=== PATIENT | male | born 1960 | race Caucasian/White ===

== ENCOUNTER 2021-12-01 15:53 | Outpatient (CLI) | payer BC, SELFPAY ==
[2021-12-01 16:22] LABS: Hematocrit 33.9 % (40.0-54.0); Hemoglobin 10.5 g/dL (14.0-18.0); Mean Corpuscular Hemoglobin 24.9 pg (27.0-31.0); Mean Corpuscular Volume 80.3 fL (78.0-102.0); Platelet Count Result 50 K/mm3 (150-420); Red Blood Count 4.22 M/mm3 (4.70-6.10); White Blood Count 2.3 K/mm3 (4.8-10.8)
[2021-12-01 16:29] LABS: Hemoglobin A1C 7.6 % (<5.7)
[2021-12-01 16:36] LABS: Creatinine Urine 67.27 mg/dL (40-278); MALB Creatinine Ratio 19.3 mg/g (0-30); Microalbumin Urine Random < 13.0 mg/L
[2021-12-01 17:15] LABS: Alanine Aminotransferase 36 U/L (16-63); Albumin Level 3.9 g/dL (3.4-5.0); Alkaline Phosphatase 80 U/L (46-116); Anion Gap 9 mmol/L (8-16); Aspartate Amino Transferase 24 U/L (15-37); Bilirubin,Total 0.5 mg/dL (0.00-1.00); Blood Urea Nitrogen 11 mg/dL (7-18); Calcium 8.7 mg/dL (8.5-10.1); Carbon Dioxide 29 mmol/L (21-32); Chloride 105 mmol/L (98-108); Cholesterol 149 mg/dL (0-200); Estimated Glomerular Filt Rate > 60; Ferritin 10 ng/mL (26-388); Glucose 124 mg/dL (70-99); HDL Direct 47 mg/dL (40-60); Iron 22 ug/dL (65-175); LDL Cholesterol Calculated 91 mg/dL (<130); Osmolality Calculated 296 mOsm/kg (285-295); Percent Iron Saturation 5 % (12-57); Sodium 143 mmol/L (136-145); Total Protein 6.8 g/dL (6.4-8.2); Triglycerides 55 mg/dL (0-150)
== END 2021-12-01 15:54 | disposition home or self-care (01) ==
LOC: CHSLAB 15:56
PROVIDERS: PCP Family Medicine; Visit Provider Family Medicine
DX: D64.9 Anemia, unspecified (principal); E11.9 Type 2 diabetes mellitus without complications
CPT/HCPCS: 36415; 80053; 80061; 82043; 82728; 83036; 83540; 83550; 85027; 85055

== ENCOUNTER 2021-12-03 08:41 | Outpatient (CLI) | payer BC, SELFPAY ==
--- NOTE | ~2021-12-03 | US_ITS ---
EXAMINATION: US abdomen limited DATE: 12/03/2021 09:44 INDICATION: Splenomegaly TECHNIQUE: Multiple grayscale and Doppler ultrasound images of the abdomen were obtained. COMPARISON: None FINDINGS: Splenomegaly measuring approximately 21 x 21 x 11 cm. The region of the pancreas is obscured. Liver h as normal contour, with a smooth surface. There is increased parenchymal echogenicity and coarsened e chotexture consistent with diffuse hepatic steatosis. No liver lesion identified. No intrahepatic bi liary duct dilation suspected. Portal venous flow was seen in the hepatopetal, normal direction and h as normal Doppler waveform. There is mild gallbladder wall thickening measuring 3-4 mm . There is no cholelithiasis. The common bile duct measures 3-4 mm, which is normal. Sonographic Abbasi sign was re ported as negative by the foil wrapper.Visualized portions of the right kidney demonstrates normal con tour and echogenicity with no hydronephrosis. IMPRESSION: 1. Diffuse hepatic steatosis. 2. Nonspecific splenomegaly measuring 21 x 21 x 11 cm. 3. No significant gallbladder wall thickening without evident cholelithiasis or Abbasi sign to sugges t acute cholecystitis. Differential would include liver heart or renal disease or other generalized e laayna forming states. Reviewed, dictated and finalized at location A. IMPRESSION: 1. Diffuse hepatic steatosis. 2. Nonspecific splenomegaly measuring 21 x 21 x 11 cm. 3. No significant gallbladder wall thickening without evident cholelithiasis or Abbasi sign to suggest acute cholecystitis. Differential would include liver h eart or renal disease or other generalized edema forming states.
== END 2021-12-03 08:42 | disposition home or self-care (01) ==
LOC: CHSIMG 08:42
PROVIDERS: PCP Family Medicine; Visit Provider Family Medicine
DX: R16.1 Splenomegaly, not elsewhere classified (principal)
CPT/HCPCS: 76705

== ENCOUNTER 2022-01-07 09:10 | Outpatient (CLI) | payer BC, SELFPAY ==
[2022-01-07 10:25] LABS: Lactate Dehydrogenase 166 U/L (85-227)
[2022-01-07 11:24] LABS: HIV 1 P24 AG Negative (Negative); HIV 1/2 AB Negative (Negative)
[2022-01-10 04:02] LABS: Angiotensin Converting Enzyme 39 U/L (9-67)
[2022-01-10 14:07] LABS: Hepatitis B Surface Antigen Nonreactive (Nonreactive); Hepatitis C Signal to Cutoff 0.01 ratio (<1.00); Hepatitis C Virus Antibody Nonreactive (Nonreactive)
[2022-01-10 14:07] LABS: Hepatitis A Antibody IgM Nonreactive; Hepatitis B Core Ab Total Nonreactive (Nonreactive)
[2022-01-12 11:03] LABS: BCR/abl Prior Result Not Given
[2022-01-12 11:49] LABS: BCR/abl P190 Not Detected; BCR/abl P190 Chg YES; BCR/abl P210 Not Detected; BCR/abl P210 Chg YES
== END 2022-01-07 09:11 | disposition home or self-care (01) ==
LOC: CHSLAB 09:13
PROVIDERS: PCP Family Medicine; Visit Provider Internal Medicine Hematology & Oncology
DX: R16.1 Splenomegaly, not elsewhere classified (principal)
CPT/HCPCS: 36415; 81206; 81207; 82164; 83615; 86703; 86704; 88184; 88185; 88189

== ENCOUNTER 2022-01-16 00:45 | Day surgery (SDC) | payer BC, SELFPAY ==
[2022-01-01 13:32] VITALS: BMI 33.2
--- NOTE | 2022-01-15 10:47 | WPDANESEPPF ---
Anes - Initial Pre Proc Eval Procedure: Operation Date: 01/16/22 11:15 Proposed Procedures p Esophagogastroduodenoscopy & Screening Colonoscopy - Blayne Beltrán MD Date/Time: 01/15/22 10:47 Surgeon: Blayne Beltrán MD Pre Op Diagnosis: GERD, neoplasm screening Patient Data Age: 61 Gender: M Height: 1.83 m Weight: 111 kg Allergies Allergy/AdvReac Type Severity Reaction Status Date / Time Penicillins Allergy Severe swelling Verified 01/16/22 09:36 Home Medications Medication Instructions Recorded Confirmed Type bupropion HCl 150 mg 24 hr tablet, 300 mg PO QAM 12/01/21 01/14/22 History extended release cetirizine 10 mg tablet (Zyrtec) 10 mg PO DAILY PRN rhinitis 12/01/21 01/14/22 History glimepiride 2 mg tablet 2 mg PO BID 12/01/21 01/14/22 History losartan 50 mg-hydrochlorothiazide 1 tablet PO DAILY 12/01/21 01/14/22 History 12.5 mg tablet pantoprazole 40 mg tablet,delayed 40 mg PO QHS 12/01/21 01/14/22 History release sertraline 100 mg tablet 100 mg PO HS 12/01/21 01/14/22 History sildenafil 25 mg tablet 25 mg PO DAILY PRN Sexual Activity 12/01/21 01/14/22 History acetaminophen 500 mg tablet 1,000 mg PO BID PRN Pain 12/15/21 01/14/22 History hydrochlorothiazide 12.5 mg tablet 12.5 mg PO DAILY 12/15/21 01/14/22 History ferrous sulfate 325 mg PO DAILY 01/01/22 01/14/22 History Patient hx anesthesia problems: none Family hx anesthesia problems: none Results Review: All pre-operative results and documents have been reviewed as part of the pre-operative evaluation. [facility] Past Medical History Medical History (Updated 01/15/22 @ 10:48 by Tyler Griffiths DO) Anxiety Depression GERD (gastroesophageal reflux disease) Hypertension Hypothyroidism Type 2 diabetes mellitus Social History Social History Smoking status: Never smoker Alcohol intake: never Substance use: never Substance use type: does not use Living arrangements: alone Spiritual care concerns: No Anes - Eval Final PreProcedure Day of Procedure 01/15/22 10:47 Patient weight: obese Heart: regular rate and rhythm Lungs: clear to auscultation Airway: Mallampati scale class II Neurological: alert and oriented Last oral intake: >/= 8 hours ASA classification: III Emergent: no Anesthetic plan: proceed Anesthesia type and monitoring: general GIVS and standard monitoring Results Review: All pre-operative results and documents have been reviewed as part of the pre-operative evaluation. Informed Consent: The patient's anesthetic plan and its attendant risks and benefits were discussed with the patient/family/POA. Questions were solicited and answers provided to the satisfaction of the patient/family/POA.
[2022-01-16 09:42] VITALS: BP 155/83; PULSE 71; RESP 20; TEMP 36.4; O2SAT 98; BMI 32.8
[2022-01-16] MEDS: LACTATED RINGERS 1,000 ML 150 ML IV CONT (09:54)
[2022-01-16 09:57] LABS: Glucose Point of Care 144 mg/dl (65-105)
--- NOTE | 2022-01-16 10:45 | PM.HPGS ---
History of Present Illness History of Present Illness Consent: Risks, benefits, and alternatives have been discussed and questions answered. Patient agrees to proceed with procedure. Chief complaint: GERD, neoplasm screening Narrative: Ez Burgos is a 61 year old male with pancytopenia and LINDSEY, he is seeing hematology. Denies overt gib, never had egd and has GERD on protonix. Colonoscopy 12 years ago. Review of Systems Constitutional: Constitutional: Denies headache(s) and Denies weakness Eyes: Eyes: Denies blurry vision ENT: Reports Normal hearing present, Denies headache(s) and Denies neck pain Cardiovascular: Cardiovascular: Denies chest pain and Denies dyspnea Respiratory: Respiratory: Denies dyspnea Gastrointestinal: Gastrointestinal: Reports no additional gastrointestinal complaints Genitourinary: Genitourinary: Denies dysuria Musculoskeletal: Musculoskeletal: Denies neck pain Integumentary/Breasts: Skin/Breast: Denies dry skin Neurologic: Reports Normal hearing present, Denies headache(s) and Denies weakness Psychiatric: Psychiatric: Denies anxiety Endocrine: Endocrine: Denies change in body appearance Hematologic/Lymphatic: Hematologic/Lymphatic: Denies easy bleeding Allergic/Immunologic: Allergic/Immunologic: Denies urticaria PMFSH Past Medical History Medical History (Updated 01/16/22 @ 10:46 by Blayne Beltrán MD) Anxiety Depression GERD (gastroesophageal reflux disease) Hypertension Hypothyroidism Iron deficiency anemia Pancytopenia Type 2 diabetes mellitus Social History Social History Smoking status: Never smoker Alcohol intake: never Substance use: never Substance use type: does not use Living arrangements: alone Spiritual care concerns: No Meds Home Medications and Allergies Home Medications Medication Instructions Recorded Confirmed Type bupropion HCl 150 mg 24 hr tablet, 300 mg PO QAM 12/01/21 01/14/22 History extended release cetirizine 10 mg tablet (Zyrtec) 10 mg PO DAILY PRN rhinitis 12/01/21 01/14/22 History glimepiride 2 mg tablet 2 mg PO BID 12/01/21 01/14/22 History losartan 50 mg-hydrochlorothiazide 1 tablet PO DAILY 12/01/21 01/14/22 History 12.5 mg tablet pantoprazole 40 mg tablet,delayed 40 mg PO QHS 12/01/21 01/14/22 History release sertraline 100 mg tablet 100 mg PO HS 12/01/21 01/14/22 History sildenafil 25 mg tablet 25 mg PO DAILY PRN Sexual Activity 12/01/21 01/14/22 History acetaminophen 500 mg tablet 1,000 mg PO BID PRN Pain 12/15/21 01/14/22 History hydrochlorothiazide 12.5 mg tablet 12.5 mg PO DAILY 12/15/21 01/14/22 History ferrous sulfate 325 mg PO DAILY 01/01/22 01/14/22 History Allergies Allergy/AdvReac Type Severity Reaction Status Date / Time Penicillins Allergy Severe swelling Verified 01/16/22 09:36 Vital Signs Vital Signs - 24 hr 01/16/22 09:42 Temperature 97.5 F L Pulse Rate 71 Respiratory Rate 20 Blood Pressure 155/83 H Pulse Oximetry 98 Oxygen Delivery Room Air Exam Const: General: comfortable and no acute distress HENMT: General nose exam: Normal nares present Eyes: General: appearance normal, both eyes and all related structures Neck: Neck: no JVD Resp: Auscultation: clear to auscultation bilaterally Cardio: Rate: regular rate Rhythm: regular rhythm GI: Inspection: non-distended GI Palp: Yes Soft to palpation Skin: General skin exam: normal color Neuro: General: gait normal Speech: normal speech Extrem: General: normal to inspection Psych: Mental Status: mental status grossly normal Assessment and Plan Assessment and plan (1) Iron deficiency anemia: Code(s): D50.9 - Iron deficiency anemia, unspecified Status: Acute Assessment and Plan: egd and colonoscopy to assess if any gi loss (2) Pancytopenia: Code(s): D61.818 - Other pancytopenia Status: Acute Asses
[2022-01-16 11:30] VITALS: BP 166/86; PULSE 70; RESP 17; O2SAT 99
--- NOTE | 2022-01-16 11:32 | SUR.OPER ---
EGD START 1050, END 1058 COLONOSCOPY START 1104, END 1123
[2022-01-16 11:40] VITALS: BP 177/95; PULSE 63; RESP 17; O2SAT 100
[2022-01-16 11:50] VITALS: BP 179/93; PULSE 62; RESP 19; O2SAT 100
== END 2022-01-16 12:30 | disposition home or self-care (01) ==
PROVIDERS: PCP Family Medicine; Visit Provider Internal Medicine Gastroenterology
PROC: 0DJ08ZZ Inspection of Upper Intestinal Tract, Via Natural or Artificial Opening Endoscopic (ICD-10-PCS; CPT 43235; principal; 2022-01-16 11:15)
DX: Z12.11 Encounter for screening for malignant neoplasm of colon (principal); D12.2 Benign neoplasm of ascending colon; D12.4 Benign neoplasm of descending colon; K64.8 Other hemorrhoids; K63.5 Polyp of colon; I85.00 Esophageal varices without bleeding; K29.70 Gastritis, unspecified, without bleeding; F41.9 Anxiety disorder, unspecified; F32.A Depression, unspecified; I10 Essential (primary) hypertension; K21.9 Gastro-esophageal reflux disease without esophagitis; E03.9 Hypothyroidism, unspecified; D50.9 Iron deficiency anemia, unspecified; D61.818 Other pancytopenia; E11.9 Type 2 diabetes mellitus without complications; E66.9 Obesity, unspecified; Z68.32 Body mass index [BMI] 32.0-32.9, adult
CPT/HCPCS: 45385; 43244; 82948; 88305; J2001; J2704; J7120

== ENCOUNTER 2022-01-20 15:20 | Outpatient (CLI) | payer BC, SELFPAY ==
[2022-01-22 21:16] LABS: Ceruloplasmin 25 mg/dL (18-36); Immunoglobulin G 878 mg/dL (600-1640); Immunoglobulin M 147 mg/dL (50-300)
[2022-01-22 21:59] LABS: Mitochondrial (M2) Ab (IgG) <=20.0 U (<=20.0)
[2022-01-26 11:32] LABS: Anti Nuclear Antibody Pattern Nuclear, Speckled
[2022-01-28 15:21] LABS: ALT 24 U/L (9-46); Alpha-2-Macroglobulin 255 mg/dL (106-279); Apolipoprotein A1 116 mg/dL (94-176); Fibrosis Score 0.63; Fibrosis Stage F3; GGT 38 U/L (3-70); Haptoglobin 50 mg/dL (43-212); Necroinflammat Act Grade A0; Total Bilirubin 0.5 mg/dL (0.2-1.2)
== END 2022-01-20 15:21 | disposition home or self-care (01) ==
PROVIDERS: PCP Family Medicine; Visit Provider Internal Medicine Gastroenterology
DX: R74.8 Abnormal levels of other serum enzymes (principal); D61.818 Other pancytopenia; K74.60 Unspecified cirrhosis of liver
CPT/HCPCS: 36415; 81596; 82104; 82390; 82784; 83520; 86038; 86039

== ENCOUNTER 2022-02-24 00:24 | Day surgery (SDC) | payer BC, SELFPAY ==
[2022-02-09 15:09] VITALS: BMI 32.5
[2022-02-24 08:01] VITALS: BP 173/79; PULSE 65; RESP 20; TEMP 36.5; O2SAT 97
[2022-02-24] MEDS: LACTATED RINGERS 1,000 ML 150 ML IV CONT (08:15)
--- NOTE | 2022-02-24 08:22 | P.PNAN_ITS ---
Anes - Initial Pre Proc Eval Procedure: Operation Date: 02/24/22 09:45 Proposed Procedures p Esophagogastroduodenoscopy - Blayne Beltrán MD Date/Time: 02/24/22 08:22 Surgeon: Blayne Beltrán MD Pre Op Diagnosis: esophageal varices, esophagitis Patient Data Age: 61 Gender: M Height: 1.83 m Weight: 112.5 kg Last Vital Signs Temp 36.5 C 02/24/22 08:01 Pulse 65 02/24/22 08:01 Resp 20 02/24/22 08:01 BP 173/79 H 02/24/22 08:01 Pulse Ox 97 02/24/22 08:01 O2 Del Method Room Air 02/24/22 08:01 Allergies Allergy/AdvReac Type Severity Reaction Status Date / Time Penicillins Allergy Severe swelling Verified 02/24/22 08:00 Home Medications Medication Instructions Recorded Confirmed Type bupropion HCl 150 mg 24 hr tablet, 300 mg PO QAM 12/01/21 02/09/22 History extended release cetirizine 10 mg tablet (Zyrtec) 10 mg PO DAILY PRN rhinitis 12/01/21 02/09/22 History glimepiride 2 mg tablet 2 mg PO BID 12/01/21 02/09/22 History losartan 50 mg-hydrochlorothiazide 1 tablet PO DAILY 12/01/21 02/09/22 History 12.5 mg tablet pantoprazole 40 mg tablet,delayed 40 mg PO QHS 12/01/21 02/09/22 History release sildenafil 25 mg tablet 25 mg PO DAILY PRN Sexual Activity 12/01/21 02/09/22 History acetaminophen 500 mg tablet 1,000 mg PO BID PRN Pain 12/15/21 02/09/22 History hydrochlorothiazide 12.5 mg tablet 12.5 mg PO DAILY 12/15/21 02/09/22 History ferrous sulfate 325 mg PO DAILY 01/01/22 02/09/22 History sertraline 100 mg tablet 200 mg PO DAILY 90 days #180 tabs 01/20/22 02/09/22 Rx Patient hx anesthesia problems: none Family hx anesthesia problems: none Results Review: All pre-operative results and documents have been reviewed as part of the pre-op erative evaluation. [facility] Past Medical History Medical History Anxiety Cirrhosis Depression GERD (gastroesophageal reflux disease) Hypertension Hypothyroidism Iron deficiency anemia Pancytopenia Type 2 diabetes mellitus Social History Social History Smoking status: Never smoker Alcohol intake: never Substance use: never Substance use type: does not use Living arrangements: alone Spiritual care concerns: No Anes - Eval Final PreProcedure Day of Procedure 02/24/22 08:22 Patient weight: obese Heart: regular rate and rhythm Lungs: clear to auscultation Airway: Mallampati scale class II Neurological: alert and oriented Last oral intake: >/= 8 hours ASA classification: III Emergent: no Anesthetic plan: proceed Anesthesia type and monitoring: general GIVS and standard monitoring Results Review: All pre-operative results and documents have been reviewed as part of the pre- operative evaluation. Informed Consent: The patient's anesthetic plan and its attendant risks and benefits were discussed with the patient/family/POA. Questions were solicited and answers provided to the satisfaction of the patient/family/POA.
[2022-02-24 08:27] LABS: Glucose Point of Care 164 mg/dl (65-105)
--- NOTE | 2022-02-24 09:10 | PM.HPGS ---
History of Present Illness History of Present Illness Consent: Risks, benefits, and alternatives have been discussed and questions answered. Patient agrees to proceed with procedure. Chief complaint: esophageal varices, esophagitis Narrative: Ez Burgos is a 61 year old male with new diagnosis of cirrhosis and recent EGD showed large EV that required banding, denies any bleeding. No h/o alcohol use. Review of Systems Constitutional: Constitutional: Denies headache(s) and Denies weakness Eyes: Eyes: Denies blurry vision ENT: Reports Normal hearing present, Denies headache(s) and Denies neck pain Cardiovascular: Cardiovascular: Denies chest pain and Denies dyspnea Respiratory: Respiratory: Denies dyspnea Gastrointestinal: Gastrointestinal: Reports no additional gastrointestinal complaints Genitourinary: Genitourinary: Denies dysuria Musculoskeletal: Musculoskeletal: Denies neck pain Integumentary/Breasts: Skin/Breast: Denies dry skin Neurologic: Reports Normal hearing present, Denies headache(s) and Denies weakness Psychiatric: Psychiatric: Denies anxiety Endocrine: Endocrine: Denies change in body appearance Hematologic/Lymphatic: Hematologic/Lymphatic: Denies easy bleeding Allergic/Immunologic: Allergic/Immunologic: Denies urticaria PMFSH Past Medical History Medical History (Updated 02/24/22 @ 09:11 by Blayne Beltrán MD) Anxiety Cirrhosis Depression Esophageal varices determined by endoscopy GERD (gastroesophageal reflux disease) Hypertension Hypothyroidism Iron deficiency anemia Pancytopenia Type 2 diabetes mellitus Social History Social History Smoking status: Never smoker Alcohol intake: never Substance use: never Substance use type: does not use Living arrangements: alone Spiritual care concerns: No Meds Home Medications and Allergies Home Medications Medication Instructions Recorded Confirmed Type bupropion HCl 150 mg 24 hr tablet, 300 mg PO QAM 12/01/21 02/09/22 History extended release cetirizine 10 mg tablet (Zyrtec) 10 mg PO DAILY PRN rhinitis 12/01/21 02/09/22 History glimepiride 2 mg tablet 2 mg PO BID 12/01/21 02/09/22 History losartan 50 mg-hydrochlorothiazide 1 tablet PO DAILY 12/01/21 02/09/22 History 12.5 mg tablet pantoprazole 40 mg tablet,delayed 40 mg PO QHS 12/01/21 02/09/22 History release sildenafil 25 mg tablet 25 mg PO DAILY PRN Sexual Activity 12/01/21 02/09/22 History acetaminophen 500 mg tablet 1,000 mg PO BID PRN Pain 12/15/21 02/09/22 History hydrochlorothiazide 12.5 mg tablet 12.5 mg PO DAILY 12/15/21 02/09/22 History ferrous sulfate 325 mg PO DAILY 01/01/22 02/09/22 History sertraline 100 mg tablet 200 mg PO DAILY 90 days #180 tabs 01/20/22 02/09/22 Rx Allergies Allergy/AdvReac Type Severity Reaction Status Date / Time Penicillins Allergy Severe swelling Verified 02/24/22 08:00 Vital Signs Vital Signs - 24 hr 02/24/22 08:01 Temperature 97.7 F Pulse Rate 65 Respiratory Rate 20 Blood Pressure 173/79 H Pulse Oximetry 97 Oxygen Delivery Room Air Exam Const: General: comfortable and no acute distress HENMT: Face/Nose/Sinus: Normal nares present Eyes: General: appearance normal, both eyes and all related structures Neck: Neck: no JVD Resp: Auscultation: clear to auscultation bilaterally Cardio: Rate: regular rate Rhythm: regular rhythm GI: Inspection: non-distended GI Palp: Yes Soft to palpation Skin: General skin exam: normal color Neuro: General: gait normal Speech: normal speech Extrem: General: normal to inspection Psych: Mental Status: mental status grossly normal Assessment and Plan Assessment and plan (1) Cirrhosis: Code(s): K74.60 - Unspecified cirrhosis of liver Status: Acute Assessment and Plan: patient will follow up office soon probably rivas related (2) Esophageal varices determined b
[2022-02-24 09:22] VITALS: BP 203/115; PULSE 68; RESP 20; O2SAT 100
[2022-02-24 09:32] VITALS: BP 197/110; PULSE 67; RESP 20; O2SAT 100
[2022-02-24 09:42] VITALS: BP 194/104; PULSE 70; RESP 20; O2SAT 100
[2022-02-24 09:52] VITALS: BP 156/94; PULSE 70; RESP 20; O2SAT 100
--- NOTE | 2022-02-24 09:57 | SUR.PHASEII ---
0922: PT INTO POST OP, BLOOD PRESSURE 203/115, HR 68. LIGIA HINTON ADMINISTERED 20MG HYDRALAZINE IVP. PT DROWSY BUT AWAKE. 0958: BLOOD PRESSURE 156/94, HR 70. DR SHEFFIELD UPDATED. NO NEW ORDERS. PT AWAKE AND TALKING.
== END 2022-02-24 10:16 | disposition home or self-care (01) ==
PROVIDERS: PCP Family Medicine; Visit Provider Internal Medicine Gastroenterology
PROC: 0DJ08ZZ Inspection of Upper Intestinal Tract, Via Natural or Artificial Opening Endoscopic (ICD-10-PCS; CPT 43235; principal; 2022-02-24 09:45)
DX: K74.60 Unspecified cirrhosis of liver (principal); I85.10 Secondary esophageal varices without bleeding; K29.70 Gastritis, unspecified, without bleeding; K21.9 Gastro-esophageal reflux disease without esophagitis; I10 Essential (primary) hypertension; E03.9 Hypothyroidism, unspecified; D50.9 Iron deficiency anemia, unspecified; E11.9 Type 2 diabetes mellitus without complications; F41.9 Anxiety disorder, unspecified; F32.A Depression, unspecified; Z79.84 Long term (current) use of oral hypoglycemic drugs; E66.9 Obesity, unspecified; Z68.33 Body mass index [BMI] 33.0-33.9, adult
CPT/HCPCS: 43244; 82948; J0360; J2704; J7120

== ENCOUNTER 2022-03-27 13:11 | Emergency (ER) | payer BC, OTHER, SELFPAY ==
--- NOTE | ~2022-03-27 | XR_ITS ---
EXAMINATION: XR chest 2V DATE: 03/27/2022 14:28 INDICATION: Anterior right lower chest pain. TECHNIQUE: frontal and lateral views of the chest were obtained. COMPARISON: None FINDINGS: Calcified nodule at the right lung base consistent with old granulomatous disease. Mild lingular disc oid atelectasis near the apex of the heart. No other airspace opacities, pulmonary edema, pleural eff usion or pneumothorax. The cardiomediastinal silhouette is normal. Mild to moderate thoracolumbar spo ndylosis IMPRESSION: 1. Mild lingular atelectasis. No other acute cardiopulmonary disease. Reviewed, dictated and finalized at location A. HOMETRICIAN
[2022-03-27 13:31] VITALS: BP 147/78; PULSE 79; RESP 20; TEMP 36.9; O2SAT 96
--- NOTE | 2022-03-27 14:19 | ED.GENADULT ---
HPI - General Adult General Chief complaint: Abdominal Pain Stated complaint: vomiting/R side pain Time Seen by Provider: 03/27/22 14:06 History of Present Illness HPI narrative: patient is a 61-year-old white male with history of cirrhosis complains of right upper quadrant and and right lower chest wall pain that started this morning associated with vomiting up food without blood. He also has a history of esophageal varices low platelets low RBCs splenomegaly iron deficiency anemia. He has had some watery loose diarrheal stools today he has had a cough since this morning without sputum he also has a history of GERD. Denies any shortness of breath just feels tired he has not taken anything for his pain. Related Data Home Medications Medication Instructions Recorded Confirmed cetirizine 10 mg tablet (Zyrtec) 10 mg PO DAILY PRN rhinitis 12/01/21 03/27/22 acetaminophen 500 mg tablet 1,000 mg PO BID PRN Pain 12/15/21 03/27/22 ferrous sulfate 325 mg PO DAILY 01/01/22 03/27/22 Allergies Allergy/AdvReac Type Severity Reaction Status Date / Time Penicillins Allergy Severe swelling Verified 03/27/22 13:35 Review of Systems Review of Systems: All systems reviewed & are unremarkable except as noted in HPI and below Constitutional: Constitutional: Reports no additional constitutional complaints, Reports fatigue and Denies fever(s) Eyes: Eyes: Reports no additional eye complaints ENT: Reports system reviewed and no additional complaints, except as documented Cardiovascular: Cardiovascular: Reports as per HPI, Reports no additional cardiovascular complaints and Reports chest pain Respiratory: Respiratory: Reports as per HPI, Reports no additional respiratory complaints, Reports cough, Denies dyspnea and Denies wheezing Gastrointestinal: Gastrointestinal: Reports as per HPI, Reports no additional gastrointestinal complaints, Reports abdominal pain, Denies constipation, Reports heartburn, Reports diarrhea, Reports nausea and Reports vomiting Genitourinary: Genitourinary: Reports no additional male genitourinary complaints Musculoskeletal: Musculoskeletal: Reports no additional musculoskeletal complaints Integumentary/Breasts: Skin/Breast: Reports system reviewed and no additional complaints, except as docu Neurologic: Reports system reviewed and no additional complaints, except as documented [facility] Past Medical History Medical History Adenomatous colon polyp Anxiety Cirrhosis Depression Esophageal varices determined by endoscopy GERD (gastroesophageal reflux disease) Hypertension Hypothyroidism Iron deficiency anemia Pancytopenia Thrombocytopenia Type 2 diabetes mellitus Social History Social History (Updated 03/18/22 @ 10:07 by Alexa Amin) Smoking status: Never smoker Alcohol intake: never Substance use: never Substance use type: does not use Lack of Transportation: No Lack of Food: Never True Current Housing: I Have Housing Concerned About Future Housing: No Difficulty Paying Gas/Electric Bills: No Difficulty Paying for Meds: No Currently Unemployed: No Education: High School Diploma/GED Difficulty w/ Childcare or Family Care: No Spiritual care concerns: No Exam Narrative: White male appears in no apparent distress eyes conjunctiva pink sclera maybe a little icteric oropharynx clear with moist mucous membranes neck is supple no lymphadenopathy lungs are clear chest wall is tender right anterior lower chest wall heart is regular rate rhythm without murmurs gallops rubs vital signs are normal abdomen soft nontender no hepatosplenomegaly or masses no CVA tenderness no abdominal aortic bruits. Extremities no cyanosis clubbing or edema neurological motor ends sensory grossly intact. Const: Limitations: no limitations Course Course Emergency Course: Patient was given Zofran ODT feels much better is wishing discharge. E
[2022-03-27] MEDS: ONDANSETRON HCL ODT 4 MG TABLET PO (14:33)
--- NOTE | 2022-03-27 14:37 | ECG_ITS ---
Measurements Intervals [place] Rate: 71 P: 16 UT: 176 QRS: -2 QRSD: 106 T: 3 QT: 416 QTc: 453 Interpretive Statements SINUS RHYTHM INCOMPLETE RIGHT BUNDLE BRANCH BLOCK BASELINE ARTIFACT- I, II, AVR, AVL, AVF BORDERLINE ECG NO PREVIOUS ECG AVAILABLE FOR COMPARISON Electronically Signed On 03-27-2022 16:12:27 [employer] by Irving Anton D.O.
[2022-03-27 14:41] LABS: Hematocrit 36.5 % (40.0-54.0); Hemoglobin 11.7 g/dL (14.0-18.0); Immature Platelet Fraction Pct 7.1 % (1.0-7.0); Mean Corpuscular HGB Conc 32.1 g/dL (32.0-36.0); Mean Corpuscular Hemoglobin 26.5 pg (27.0-31.0); Mean Corpuscular Volume 82.6 fL (78.0-102.0); Platelet Count Result 49 K/mm3 (150-420); Red Blood Count 4.42 M/mm3 (4.70-6.10); Red Cell Distribution Width 18.5 % (11.6-14.4); White Blood Count 3.6 K/mm3 (4.8-10.8)
[2022-03-27 14:51] LABS: D Dimer 0.24 mg/L (0.19-0.50); INR 1.3; Partial Thromboplastin Time 29.5 SEC (23.90-30.70)
[2022-03-27 14:55] LABS: Alanine Aminotransferase 26 U/L (16-63); Albumin Level 4.1 g/dL (3.4-5.0); Alkaline Phosphatase 69 U/L (46-116); Anion Gap 10 mmol/L (8-16); Aspartate Amino Transferase 18 U/L (15-37); Bilirubin,Total 1.1 mg/dL (0.00-1.00); Blood Urea Nitrogen 13 mg/dL (7-18); Calcium 8.5 mg/dL (8.5-10.1); Carbon Dioxide 27 mmol/L (21-32); Chloride 104 mmol/L (98-108); Estimated CRCL calculation 106 ml/min; Estimated Glomerular Filt Rate > 60; Glucose 147 mg/dL (70-99); Magnesium 1.7 mg/dL (1.8-2.4); Osmolality Calculated 295 mOsm/kg (285-295); Potassium 3.4 mmol/L (3.5-5.1); Sodium 141 mmol/L (136-145); Total Protein 7.1 g/dL (6.4-8.2); Troponin I 7.7 ng/L (0.00-60.4)
[2022-03-27 16:09] VITALS: BP 147/71; PULSE 68; RESP 20; TEMP 36.7; O2SAT 97
== END 2022-03-27 16:14 | disposition home or self-care (01) ==
PROVIDERS: Emergency Provider Emergency Medicine; PCP Family Medicine
DX: J98.11 Atelectasis (principal); R11.2 Nausea with vomiting, unspecified; I10 Essential (primary) hypertension; E03.9 Hypothyroidism, unspecified; E11.9 Type 2 diabetes mellitus without complications
CPT/HCPCS: 36415; 71046; 80053; 83735; 84484; 85027; 85055; 85380; 85610; 85730; 93005; 99284; A9270

== ENCOUNTER 2022-04-13 15:54 | Outpatient (CLI) | payer BC, OTHER, SELFPAY ==
[2022-04-13 16:12] LABS: Hematocrit 38.7 % (40.0-54.0); Hemoglobin 12.4 g/dL (14.0-18.0); Immature Platelet Fraction Pct 8.6 % (1.0-7.0); Mean Corpuscular Hemoglobin 26.8 pg (27.0-31.0); Mean Corpuscular Volume 83.8 fL (78.0-102.0); Platelet Count Result 54 K/mm3 (150-420); Red Blood Count 4.62 M/mm3 (4.70-6.10); Red Cell Distribution Width 17.1 % (11.6-14.4); White Blood Count 3.4 K/mm3 (4.8-10.8)
[2022-04-13 16:56] LABS: Ferritin 32 ng/mL (26-388); Iron 90 ug/dL (65-175); Percent Iron Saturation 23 % (12-57)
[2022-04-13 17:13] LABS: Band Neutrophils Percent 0 % (0-6); Basophils Percent Manual 0 % (0-1); Eosinophils Absolute Manual 0.17 K/mm3 (0.02-0.5); Eosinophils Percent Manual 5 % (1-6); Lymphocytes Absolute Manual 0.78 K/mm3 (1.1-4.5); Lymphocytes Percent Manual 23 % (18-44); Monocytes Percent Manual 6 % (3-9); Neutrophils Absolute Manual 2.24 K/mm3 (1.3-6.7); Neutrophils Percent Manual 66 % (46-73); Platelet Estimate Decreased (Adequate); Total Cells Counted 100
== END 2022-04-13 15:55 | disposition home or self-care (01) ==
LOC: CHSLAB 15:56
PROVIDERS: PCP Family Medicine; Visit Provider Internal Medicine Hematology & Oncology
DX: D50.9 Iron deficiency anemia, unspecified (principal)
CPT/HCPCS: 36415; 82728; 83540; 83550; 85025; 85055

== ENCOUNTER 2022-04-14 00:35 | Day surgery (SDC) | payer BC, SELFPAY ==
[2022-03-30 10:55] VITALS: BMI 33.6
--- NOTE | 2022-03-30 15:21 | PC.NURSE ---
Pt was seen in emergency room 03/27/2022 for nausea/vomiting and diarrhea. Spoke with pt. today and he states he is feeling better, nausea and vomiting stopped after Zofran given in Er. Pt concerned about labs and low platelet, encouraged pt to call primary and ask them to review labs and that I would get a message to Dr. Rust as well. Joslyn Flores RN Endo charge nurse spoke with Dr. Rust and updated him on events and labs. No further orders and to proceed with scheduled EGD.
[2022-04-14 06:57] VITALS: BP 152/85; PULSE 72; RESP 18; TEMP 36.2; O2SAT 99; BMI 31.6
[2022-04-14] MEDS: LACTATED RINGERS 1,000 ML 150 ML IV CONT (07:17)
[2022-04-14 07:19] LABS: Glucose Point of Care 160 mg/dl (65-105)
--- NOTE | 2022-04-14 07:35 | WPDANESEPPF ---
Anes - Initial Pre Proc Eval Procedure: Operation Date: 04/14/22 08:00 Proposed Procedures p Esophagogastroduodenoscopy - Blayne Beltrán MD Date/Time: 04/14/22 07:35 Surgeon: Blayne Beltrán MD Pre Op Diagnosis: esophageal varices Patient Data Age: 61 Gender: M Height: 1.83 m Weight: 106 kg Last Vital Signs Temp 97.1 F L 04/14/22 06:57 Pulse 72 04/14/22 06:57 Resp 18 04/14/22 06:57 BP 152/85 H 04/14/22 06:57 Pulse Ox 99 04/14/22 06:57 O2 Del Method Room Air 04/14/22 06:57 Allergies Allergy/AdvReac Type Severity Reaction Status Date / Time Penicillins Allergy Severe swelling Verified 04/14/22 07:01 Home Medications Medication Instructions Recorded Confirmed Type cetirizine 10 mg tablet (Zyrtec) 10 mg PO DAILY PRN rhinitis 12/01/21 04/14/22 History acetaminophen 500 mg tablet 1,000 mg PO BID PRN Pain 12/15/21 04/14/22 History ferrous sulfate 325 mg PO DAILY 01/01/22 04/14/22 History bupropion HCl 150 mg 24 hr tablet, 300 mg PO QAM #90 tabs 03/20/22 04/14/22 Rx extended release losartan 50 mg-hydrochlorothiazide 1 tablet PO DAILY #90 tabs 03/20/22 04/14/22 Rx 12.5 mg tablet pantoprazole 40 mg tablet,delayed 40 mg PO QHS #90 tabs 03/20/22 04/14/22 Rx release propranolol 10 mg tablet 10 mg PO Q12H #180 tabs 03/20/22 04/14/22 Rx semaglutide 1 mg/dose (2 mg/1.5 1 mg (0.75 mL) subcut WEEKLY 90 03/20/22 04/14/22 Rx mL) subcutaneous pen injector days #9.75 mL sertraline 100 mg tablet 200 mg PO DAILY 90 days #180 tabs 03/20/22 04/14/22 Rx sildenafil 25 mg tablet 25 mg PO DAILY PRN Sexual Activity 03/20/22 04/14/22 Rx #30 tabs albuterol sulfate 90 mcg/actuation 2 puff inhalation QID 10 days #6.7 03/27/22 04/14/22 Rx aerosol inhaler grams ondansetron 4 mg disintegrating 4 mg PO Q4H PRN nausea and 03/27/22 04/14/22 Rx tablet vomiting 4 days #14 tabs Laboratory Tests 04/14/22 07:15 POC Capillary Glucose 160 mg/dl H mg/dl (65-105) Patient hx anesthesia problems: none Family hx anesthesia problems: none Results Review: All pre-operative results and documents have been reviewed as part of the pre-operative evaluation. [facility] Past Medical History Medical History Adenomatous colon polyp Anxiety Cirrhosis Depression Esophageal varices determined by endoscopy GERD (gastroesophageal reflux disease) Hypertension Hypothyroidism Iron deficiency anemia Pancytopenia Thrombocytopenia Type 2 diabetes mellitus Social History Social History (Updated 03/18/22 @ 10:07 by Alexa Amin) Smoking status: Never smoker Alcohol intake: never Substance use: never Substance use type: does not use Lack of Transportation: No Lack of Food: Never True Current Housing: I Have Housing Concerned About Future Housing: No Difficulty Paying Gas/Electric Bills: No Difficulty Paying for Meds: No Currently Unemployed: No Education: High School Diploma/GED Difficulty w/ Childcare or Family Care: No Living arrangements: alone Spiritual care concerns: No Anes - Eval Final PreProcedure Day of Procedure 04/14/22 07:35 Patient weight: obese Heart: regular rate and rhythm Lungs: clear to auscultation Airway: Mallampati scale class II Neurological: alert and oriented Last oral intake: >/= 8 hours ASA classification: III Emergent: no Anesthetic plan: proceed Anesthesia type and monitoring: general GIVS and standard monitoring Results Review: All pre-operative results and documents have been reviewed as part of the pre-operative evaluation. Informed Consent: The patient's anesthetic plan and its attendant risks and benefits were discussed with the patient/family/POA. Questions were solicited and answers provided to the satisfaction of the patient/family/POA.
--- NOTE | 2022-04-14 07:50 | PM.HPGS ---
History of Present Illness History of Present Illness Consent: Risks, benefits, and alternatives have been discussed and questions answered. Patient agrees to proceed with procedure. Chief complaint: esophageal varices Narrative: Ez Burgos is a 61 year old male with brandan and cirrhosis with previous EV s/p banding, here to reassess Review of Systems Constitutional: Constitutional: Denies headache(s) and Denies weakness Eyes: Eyes: Denies blurry vision ENT: Reports Normal hearing present, Denies headache(s) and Denies neck pain Cardiovascular: Cardiovascular: Denies chest pain and Denies dyspnea Respiratory: Respiratory: Denies dyspnea Gastrointestinal: Gastrointestinal: Reports no additional gastrointestinal complaints Genitourinary: Genitourinary: Denies dysuria Musculoskeletal: Musculoskeletal: Denies neck pain Integumentary/Breasts: Skin/Breast: Denies dry skin Neurologic: Reports Normal hearing present, Denies headache(s) and Denies weakness Psychiatric: Psychiatric: Denies anxiety Endocrine: Endocrine: Denies change in body appearance Hematologic/Lymphatic: Hematologic/Lymphatic: Denies easy bleeding Allergic/Immunologic: Allergic/Immunologic: Denies urticaria PMFSH Past Medical History Medical History Adenomatous colon polyp Anxiety Cirrhosis Depression Esophageal varices determined by endoscopy GERD (gastroesophageal reflux disease) Hypertension Hypothyroidism Iron deficiency anemia Pancytopenia Thrombocytopenia Type 2 diabetes mellitus Social History Social History (Updated 03/18/22 @ 10:07 by Alexa Amin) Smoking status: Never smoker Alcohol intake: never Substance use: never Substance use type: does not use Lack of Transportation: No Lack of Food: Never True Current Housing: I Have Housing Concerned About Future Housing: No Difficulty Paying Gas/Electric Bills: No Difficulty Paying for Meds: No Currently Unemployed: No Education: High School Diploma/GED Difficulty w/ Childcare or Family Care: No Living arrangements: alone Spiritual care concerns: No Meds Home Medications and Allergies Home Medications Medication Instructions Recorded Confirmed Type cetirizine 10 mg tablet (Zyrtec) 10 mg PO DAILY PRN rhinitis 12/01/21 04/14/22 History acetaminophen 500 mg tablet 1,000 mg PO BID PRN Pain 12/15/21 04/14/22 History ferrous sulfate 325 mg PO DAILY 01/01/22 04/14/22 History bupropion HCl 150 mg 24 hr tablet, 300 mg PO QAM #90 tabs 11/18/22 12/13/22 Rx extended release losartan 50 mg-hydrochlorothiazide 1 tablet PO DAILY #90 tabs 03/20/22 04/14/22 Rx 12.5 mg tablet pantoprazole 40 mg tablet,delayed 40 mg PO QHS #90 tabs 03/20/22 04/14/22 Rx release propranolol 10 mg tablet 10 mg PO Q12H #180 tabs 03/20/22 04/14/22 Rx semaglutide 1 mg/dose (2 mg/1.5 1 mg (0.75 mL) subcut WEEKLY 90 03/20/22 04/14/22 Rx mL) subcutaneous pen injector days #9.75 mL sertraline 100 mg tablet 200 mg PO DAILY 90 days #180 tabs 03/20/22 04/14/22 Rx sildenafil 25 mg tablet 25 mg PO DAILY PRN Sexual Activity 03/20/22 04/14/22 Rx #30 tabs albuterol sulfate 90 mcg/actuation 2 puff inhalation QID 10 days #6.7 03/27/22 04/14/22 Rx aerosol inhaler grams ondansetron 4 mg disintegrating 4 mg PO Q4H PRN nausea and 03/27/22 04/14/22 Rx tablet vomiting 4 days #14 tabs Allergies Allergy/AdvReac Type Severity Reaction Status Date / Time Penicillins Allergy Severe swelling Verified 04/14/22 07:01 Vital Signs Vital Signs - 24 hr 04/14/22 06:57 Temperature 97.1 F L Pulse Rate 72 Respiratory Rate 18 Blood Pressure 152/85 H Pulse Oximetry 99 Oxygen Delivery Room Air Exam Const: General: comfortable and no acute distress HENMT: Face/Nose/Sinus: Normal nares present Eyes: General: appearance normal, both eyes and all related structures Neck: Neck: no JVD Resp: Auscultation: clear
[2022-04-14 08:01] VITALS: BP 179/104; PULSE 71; RESP 15; O2SAT 98
[2022-04-14 08:11] VITALS: BP 177/98; PULSE 63; RESP 18; O2SAT 98
--- NOTE | 2022-04-14 08:16 | SUR.PHASEII ---
Patient's BP is elevated in post op. (see flow sheet) Informed Dr. Faye and LIGIA Mariscal. No new interventions at this time. Instructed to tell patient to take BP meds when he gets home. Patient verbalizes understanding.
[2022-04-14 08:21] VITALS: BP 164/87; PULSE 71; RESP 20; O2SAT 100
== END 2022-04-14 08:40 | disposition home or self-care (01) ==
PROVIDERS: PCP Family Medicine; Visit Provider Internal Medicine Gastroenterology
PROC: 0DJ08ZZ Inspection of Upper Intestinal Tract, Via Natural or Artificial Opening Endoscopic (ICD-10-PCS; CPT 43235; principal; 2022-04-14 08:00)
DX: K74.60 Unspecified cirrhosis of liver (principal); I85.10 Secondary esophageal varices without bleeding; K29.70 Gastritis, unspecified, without bleeding; K31.84 Gastroparesis; K21.9 Gastro-esophageal reflux disease without esophagitis; I10 Essential (primary) hypertension; E11.9 Type 2 diabetes mellitus without complications; E03.9 Hypothyroidism, unspecified; F41.9 Anxiety disorder, unspecified; F32.A Depression, unspecified; D50.9 Iron deficiency anemia, unspecified; E66.9 Obesity, unspecified; Z68.31 Body mass index [BMI] 31.0-31.9, adult; Z79.899 Other long term (current) drug therapy; Z79.51 Long term (current) use of inhaled steroids
CPT/HCPCS: 43244; 82948; J2704; J7120

== ENCOUNTER 2022-06-20 00:50 | Emergency (ER) | payer BC, OTHER, SELFPAY ==
[2022-06-20 00:57] VITALS: BP 152/74; PULSE 81; RESP 18; O2SAT 98
[2022-06-20 01:10] LABS: Basophils Absolute Auto 0.04 K/mm3 (0.00-0.10); Basophils Percent Auto 0.8 % (0.0-1.0); Eosinophils Absolute Auto 0.16 K/mm3 (0.02-0.50); Eosinophils Percent Auto 3.3 % (1.0-6.0); Hematocrit 36.8 % (40.0-54.0); Immature Granulocyte Absolute 0.01 K/mm3 (0.00-0.00); Immature Granulocyte Percent A 0.2 % (0.0-0.0); Immature Platelet Fraction Pct 7.4 % (1.0-7.0); Lymphocytes Absolute Auto 1.04 K/mm3 (1.10-4.50); Lymphocytes Percent Auto 21.4 % (18.0-42.0); Mean Corpuscular HGB Conc 32.6 g/dL (32.0-36.0); Mean Corpuscular Hemoglobin 27.8 pg (27.0-31.0); Mean Corpuscular Volume 85.2 fL (78.0-102.0); Monocytes Absolute Auto 0.36 K/mm3 (0.10-0.90); Monocytes Percent Auto 7.4 % (2.0-11.0); Neutrophils Absolute Auto 3.3 K/mm3 (1.7-7.2); Neutrophils Percent Auto 66.9 % (50.0-70.0); Platelet Count Result 69 K/mm3 (150-420); Red Blood Count 4.32 M/mm3 (4.70-6.10); Red Cell Distribution Width 18.3 % (11.6-14.4); White Blood Count 4.9 K/mm3 (4.8-10.8)
[2022-06-20] MEDS: ONDANSETRON HCL ODT 4 MG TABLET PO (01:12)
[2022-06-20 01:42] LABS: Alanine Aminotransferase 34 U/L (16-63); Albumin Level 3.6 g/dL (3.4-5.0); Alkaline Phosphatase 78 U/L (46-116); Anion Gap 8 mmol/L (8-16); Aspartate Amino Transferase 26 U/L (15-37); Bilirubin,Total 0.6 mg/dL (0.00-1.00); Blood Urea Nitrogen 15 mg/dL (7-18); Calcium 8.2 mg/dL (8.5-10.1); Carbon Dioxide 28 mmol/L (21-32); Chloride 104 mmol/L (98-108); Estimated CRCL calculation 120 ml/min; Estimated Glomerular Filt Rate > 60; Glucose 211 mg/dL (70-99); Lipase 26 U/L (16-77); Osmolality Calculated 296 mOsm/kg (285-295); Potassium 3.7 mmol/L (3.5-5.1); Sodium 140 mmol/L (136-145); Total Protein 6.4 g/dL (6.4-8.2)
--- NOTE | 2022-06-20 01:54 | ED.NAVMDI ---
HPI - Nausea/Vomiting/Diarrhea General Chief complaint: Nausea/Vomiting/Diarrhea Stated complaint: Vomiting Time Seen by Provider: 06/20/22 01:54 History of Present Illness HPI Narrative: 61-year-old male patient presents to ER with complaints of having had 3 small episodes of bloody vomiting. Patient states that he did not have any associated abdominal pain. He started vomiting around midnight and had 3 [id number] episodes. Since then he has not had any feeling of pressure in his stomach and has had no nausea or any further vomiting. He did not notice any diarrhea and has not to the noticed any black stools in the recent past. Patient has a longstanding history of iron deficiency anemia and through the workup of that he was diagnosed as having esophageal varices. He has never had any bleeding before but has had them banded. The patient is scheduled for another upper endoscopy in 2 days and the is going to get another banding done at that time. He denies any alcohol intake. He denies any abdominal pain. He did eat a cheeseburger and fries last night. Patient reports no weakness or lightheadedness. The patient is on Protonix at this time. Related Data Home Medications Medication Instructions Recorded Confirmed cetirizine 10 mg tablet (Zyrtec) 10 mg PO DAILY PRN rhinitis 12/01/21 06/05/22 acetaminophen 500 mg tablet 1,000 mg PO BID PRN Pain 12/15/21 06/05/22 ferrous sulfate 325 mg PO DAILY 01/01/22 06/05/22 Allergies Allergy/AdvReac Type Severity Reaction Status Date / Time Penicillins Allergy Severe swelling Verified 04/14/22 07:01 Review of Systems Review of Systems: All systems reviewed & are unremarkable except as noted in HPI and below Constitutional: Constitutional: Reports no additional constitutional complaints Eyes: Eyes: Reports no additional eye complaints ENT: Reports system reviewed and no additional complaints, except as documented Cardiovascular: Cardiovascular: Reports no additional cardiovascular complaints Respiratory: Respiratory: Reports no additional respiratory complaints Gastrointestinal: Gastrointestinal: Reports vomiting Genitourinary: Genitourinary: Reports no additional male genitourinary complaints Musculoskeletal: Musculoskeletal: Reports no additional musculoskeletal complaints Integumentary/Breasts: Skin/Breast: Reports system reviewed and no additional complaints, except as docu Neurologic: Reports system reviewed and no additional complaints, except as documented Psychiatric: Psychiatric: Reports no additional psychiatric complaints Endocrine: Endocrine: Reports no additional endocrine complaints Hematologic/Lymphatic: Hematologic/Lymphatic: Reports no additional hematologic/lymphatic complaints Allergic/Immunologic: Allergic/Immunologic: Reports no additional allergic/immunologic complaints [facility] Past Medical History Medical History Adenomatous colon polyp Anxiety Cirrhosis Depression Esophageal varices determined by endoscopy GERD (gastroesophageal reflux disease) Hypertension Hypothyroidism Iron deficiency anemia Pancytopenia Thrombocytopenia Type 2 diabetes mellitus Social History Social History (Reviewed 06/20/22 @ 02: by Jacqueline Everett MD) Smoking status: Never smoker Alcohol intake: never Substance use: never Substance use type: does not use Lack of Transportation: No Lack of Food: Never True Current Housing: I Have Housing Concerned About Future Housing: No Difficulty Paying Gas/Electric Bills: No Difficulty Paying for Meds: No Currently Unemployed: No Education: High School Diploma/GED Difficulty w/ Childcare or Family Care: No Living arrangements: alone Spiritual care concerns: No Exam Narrative: Patient is alert and appears in no acute distress. Vital signs are stable. His initial blood pressure was 152/74 however repeat blood pressure is 141/81. Pu
[2022-06-20 02:20] VITALS: BP 141/81; PULSE 71; RESP 20; TEMP 36.7; O2SAT 99
== END 2022-06-20 02:41 | disposition home or self-care (01) ==
PROVIDERS: Emergency Provider Emergency Medicine; PCP Family Medicine
DX: K92.0 Hematemesis (principal); R16.1 Splenomegaly, not elsewhere classified; I85.00 Esophageal varices without bleeding; I10 Essential (primary) hypertension; E03.9 Hypothyroidism, unspecified; E11.9 Type 2 diabetes mellitus without complications
CPT/HCPCS: 36415; 80053; 83690; 85025; 85055; 99283; A9270

== ENCOUNTER 2022-06-22 00:08 | Day surgery (SDC) | payer BC, OTHER, SELFPAY ==
[2022-06-05 13:43] VITALS: BMI 32.5
[2022-06-22 10:17] VITALS: BP 136/80; PULSE 91; RESP 18; TEMP 36.4; O2SAT 99
--- NOTE | 2022-06-22 10:34 | WPDANESEPPF ---
Anes - Initial Pre Proc Eval Procedure: Operation Date: 06/22/22 14:45 Proposed Procedures p Esophagogastroduodenoscopy - Blayne Beltrán MD Date/Time: 06/22/22 10:34 Surgeon: Blayne Beltrán MD Pre Op Diagnosis: Esophageal Varices Patient Data Age: 61 Gender: M Height: 1.83 m Weight: 105.5 kg Last Vital Signs Temp 36.4 C 06/22/22 10:17 Pulse 91 06/22/22 10:17 Resp 18 06/22/22 10:17 BP 136/80 06/22/22 10:17 Pulse Ox 99 06/22/22 10:17 O2 Del Method Room Air 06/22/22 10:17 Allergies Allergy/AdvReac Type Severity Reaction Status Date / Time Penicillins Allergy Severe swelling Verified 06/22/22 10:16 Home Medications Medication Instructions Recorded Confirmed Type cetirizine 10 mg tablet (Zyrtec) 10 mg PO DAILY PRN rhinitis 12/01/21 06/05/22 History acetaminophen 500 mg tablet 1,000 mg PO BID PRN Pain 12/15/21 06/05/22 History ferrous sulfate 325 mg PO DAILY 01/01/22 06/05/22 History bupropion HCl 150 mg 24 hr tablet, 300 mg PO QAM #90 tabs 03/20/22 06/05/22 Rx extended release propranolol 10 mg tablet 10 mg PO Q12H #180 tabs 03/20/22 06/05/22 Rx sertraline 100 mg tablet 200 mg PO DAILY 90 days #180 tabs 03/20/22 06/05/22 Rx sildenafil 25 mg tablet 25 mg PO DAILY PRN Sexual Activity 03/20/22 06/05/22 Rx #30 tabs albuterol sulfate 90 mcg/actuation 2 puff inhalation QID 10 days #6.7 03/27/22 06/05/22 Rx aerosol inhaler grams ondansetron 4 mg disintegrating 4 mg PO Q4H PRN nausea and 03/27/22 06/05/22 Rx tablet vomiting 4 days #14 tabs losartan 50 mg-hydrochlorothiazide 1 tablet PO DAILY #90 tabs 06/02/22 06/05/22 Rx 12.5 mg tablet pantoprazole 40 mg tablet,delayed 40 mg PO QHS #90 tabs 06/02/22 06/05/22 Rx release semaglutide 1 mg/dose (2 mg/1.5 1 mg (0.75 mL) subcut WEEKLY 90 06/02/22 06/05/22 Rx mL) subcutaneous pen injector days #9.75 mL iron,carbonyl 65 mg-vitamin C 125 1 tablet PO DAILY #90 tabs 06/11/22 06/22/22 Rx mg tablet,delayed release (Vitron-C) ondansetron 4 mg disintegrating 4 mg PO Q6H PRN nausea and 06/20/22 06/22/22 Rx tablet vomiting #20 tabs Patient hx anesthesia problems: none Family hx anesthesia problems: none Results Review: All pre-operative results and documents have been reviewed as part of the pre-operative evaluation. [facility] Past Medical History Medical History Adenomatous colon polyp Anxiety Cirrhosis Depression Esophageal varices determined by endoscopy GERD (gastroesophageal reflux disease) Hypertension Hypothyroidism Iron deficiency anemia Pancytopenia Thrombocytopenia Type 2 diabetes mellitus Social History Social History Smoking status: Never smoker Alcohol intake: never Substance use: never Substance use type: does not use Lack of Transportation: No Lack of Food: Never True Current Housing: I Have Housing Concerned About Future Housing: No Difficulty Paying Gas/Electric Bills: No Difficulty Paying for Meds: No Currently Unemployed: No Education: High School Diploma/GED Difficulty w/ Childcare or Family Care: No Living arrangements: alone Spiritual care concerns: No Anes - Eval Final PreProcedure Day of Procedure 06/22/22 10:34 Patient weight: obese Heart: regular rate and rhythm Lungs: clear to auscultation Airway: Mallampati scale class II Neurological: alert and oriented Last oral intake: >/= 8 hours ASA classification: IV Emergent: no Anesthetic plan: proceed Anesthesia type and monitoring: general GIVS and standard monitoring Results Review: All pre-operative results and documents have been reviewed as part of the pre-operative evaluation. Informed Consent: The patient's anesthetic plan and its attendant risks and benefits were discussed with the patient/family/POA. Questions were solicited and answers provided to the satisfactio
[2022-06-22 10:49] LABS: Glucose Point of Care 201 mg/dl (65-105)
[2022-06-22] MEDS: LACTATED RINGERS 1,000 ML 150 ML IV CONT (10:57)
--- NOTE | 2022-06-22 11:16 | PM.HPGS ---
History of Present Illness History of Present Illness Consent: Risks, benefits, and alternatives have been discussed and questions answered. Patient agrees to proceed with procedure. Chief complaint: Esophageal Varices Narrative: Ez Burgos is a 61 year old male with cirrhosis and last EGD showed EV s/p banding 04/2022, 2 days ago with n/v, unsure if blood in emesis. Review of Systems Constitutional: Constitutional: Denies headache(s) and Denies weakness Eyes: Eyes: Denies blurry vision ENT: Reports Normal hearing present, Denies headache(s) and Denies neck pain Cardiovascular: Cardiovascular: Denies chest pain and Denies dyspnea Respiratory: Respiratory: Denies dyspnea Gastrointestinal: Gastrointestinal: Reports no additional gastrointestinal complaints Genitourinary: Genitourinary: Denies dysuria Musculoskeletal: Musculoskeletal: Denies neck pain Integumentary/Breasts: Skin/Breast: Denies dry skin Neurologic: Reports Normal hearing present, Denies headache(s) and Denies weakness Psychiatric: Psychiatric: Denies anxiety Endocrine: Endocrine: Denies change in body appearance Hematologic/Lymphatic: Hematologic/Lymphatic: Denies easy bleeding Allergic/Immunologic: Allergic/Immunologic: Denies urticaria PMFSH Past Medical History Medical History Adenomatous colon polyp Anxiety Cirrhosis Depression Esophageal varices determined by endoscopy GERD (gastroesophageal reflux disease) Hypertension Hypothyroidism Iron deficiency anemia Pancytopenia Thrombocytopenia Type 2 diabetes mellitus Social History Social History Smoking status: Never smoker Alcohol intake: never Substance use: never Substance use type: does not use Lack of Transportation: No Lack of Food: Never True Current Housing: I Have Housing Concerned About Future Housing: No Difficulty Paying Gas/Electric Bills: No Difficulty Paying for Meds: No Currently Unemployed: No Education: High School Diploma/GED Difficulty w/ Childcare or Family Care: No Living arrangements: alone Spiritual care concerns: No Meds Home Medications and Allergies Home Medications Medication Instructions Recorded Confirmed Type cetirizine 10 mg tablet (Zyrtec) 10 mg PO DAILY PRN rhinitis 12/01/21 06/05/22 History acetaminophen 500 mg tablet 1,000 mg PO BID PRN Pain 12/15/21 06/05/22 History ferrous sulfate 325 mg PO DAILY 01/01/22 06/05/22 History bupropion HCl 150 mg 24 hr tablet, 300 mg PO QAM #90 tabs 03/20/22 06/05/22 Rx extended release propranolol 10 mg tablet 10 mg PO Q12H #180 tabs 03/20/22 06/05/22 Rx sertraline 100 mg tablet 200 mg PO DAILY 90 days #180 tabs 03/20/22 06/05/22 Rx sildenafil 25 mg tablet 25 mg PO DAILY PRN Sexual Activity 03/20/22 06/05/22 Rx #30 tabs albuterol sulfate 90 mcg/actuation 2 puff inhalation QID 10 days #6.7 03/27/22 06/05/22 Rx aerosol inhaler grams ondansetron 4 mg disintegrating 4 mg PO Q4H PRN nausea and 03/27/22 06/05/22 Rx tablet vomiting 4 days #14 tabs losartan 50 mg-hydrochlorothiazide 1 tablet PO DAILY #90 tabs 06/02/22 06/05/22 Rx 12.5 mg tablet pantoprazole 40 mg tablet,delayed 40 mg PO QHS #90 tabs 06/02/22 06/05/22 Rx release semaglutide 1 mg/dose (2 mg/1.5 1 mg (0.75 mL) subcut WEEKLY 90 06/02/22 06/05/22 Rx mL) subcutaneous pen injector days #9.75 mL iron,carbonyl 65 mg-vitamin C 125 1 tablet PO DAILY #90 tabs 06/11/22 06/22/22 Rx mg tablet,delayed release (Vitron-C) ondansetron 4 mg disintegrating 4 mg PO Q6H PRN nausea and 06/20/22 06/22/22 Rx tablet vomiting #20 tabs Allergies Allergy/AdvReac Type Severity Reaction Status Date / Time Penicillins Allergy Severe swelling Verified 06/22/22 10:16 Vital Signs Vital Signs - 24 hr 06/22/22 10:17 Temperature 97.6 F Pulse Rate 91 Respiratory Rate 18 Blood Pressure 136/80 Pulse Oximetr
[2022-06-22 11:31] VITALS: BP 156/91; PULSE 79; RESP 26; O2SAT 100
[2022-06-22 11:41] VITALS: BP 167/88; PULSE 75; RESP 20; O2SAT 100
[2022-06-22 11:51] VITALS: BP 168/87; PULSE 72; RESP 21; O2SAT 100
[2022-06-22] MEDS: ONDANSETRON INJ 4 MG/2 ML VIAL IV PUSH (11:53)
[2022-06-22 12:01] VITALS: BP 158/84; PULSE 70; RESP 15; O2SAT 100
== END 2022-06-22 12:15 | disposition home or self-care (01) ==
PROVIDERS: PCP Family Medicine; Visit Provider Internal Medicine Gastroenterology
PROC: 0DJ08ZZ Inspection of Upper Intestinal Tract, Via Natural or Artificial Opening Endoscopic (ICD-10-PCS; CPT 43235; principal; 2022-06-22 14:45)
DX: K74.60 Unspecified cirrhosis of liver (principal); I85.10 Secondary esophageal varices without bleeding; K29.70 Gastritis, unspecified, without bleeding; K31.7 Polyp of stomach and duodenum; D69.6 Thrombocytopenia, unspecified; I10 Essential (primary) hypertension; E03.9 Hypothyroidism, unspecified; D50.9 Iron deficiency anemia, unspecified; E11.9 Type 2 diabetes mellitus without complications; K21.9 Gastro-esophageal reflux disease without esophagitis; F32.A Depression, unspecified; F41.9 Anxiety disorder, unspecified; Z79.51 Long term (current) use of inhaled steroids; Z79.899 Other long term (current) drug therapy; E66.9 Obesity, unspecified; Z68.31 Body mass index [BMI] 31.0-31.9, adult
CPT/HCPCS: 43244; 82948; J2405; J2704; J7120

== ENCOUNTER 2022-08-24 09:45 | Outpatient (CLI) | payer BC, OTHER, SELFPAY ==
--- NOTE | ~2022-08-24 | US_ITS ---
EXAMINATION: US right upper quadrant DATE: 08/24/2022 10:14 INDICATION: Unspecified cirrhosis of liver. TECHNIQUE: Multiple grayscale and Doppler ultrasound images of the abdomen were obtained. COMPARISON: Ultrasound 12/03/2021 FINDINGS: The pancreas is obscured by bowel gas. The liver demonstrates coarsened echotexture and kyaw face nodularity, consistent with cirrhosis. There is antegrade flow in main portal vein. The gallblad jt is normal in size. No gallstones. Gallbladder wall thickening is likely secondary to chronic live r disease. There was no sonographic Abbasi sign. The common duct is normal and measures 4 mm. There i s a small volume of perihepatic ascites. IMPRESSION: 1. Cirrhosis of the liver. 2. Small volume of perihepatic ascites. Reviewed, dictated and finalized at location A.
== END 2022-08-24 09:46 | disposition home or self-care (01) ==
LOC: ANHIMG 09:47
PROVIDERS: PCP Family Medicine; Visit Provider Internal Medicine Gastroenterology
DX: I85.00 Esophageal varices without bleeding (principal); K74.60 Unspecified cirrhosis of liver; R18.8 Other ascites
CPT/HCPCS: 76705

== ENCOUNTER 2022-10-23 00:16 | Day surgery (SDC) | payer BC, SELFPAY ==
[2022-07-27 12:43] VITALS: BMI 32.5
--- NOTE | 2022-10-22 13:15 | WPDANESEPPF ---
Anes - Initial Pre Proc Eval Procedure: Operation Date: 10/23/22 11:30 Proposed Procedures p Esophagogastroduodenoscopy - Blayne Beltrán MD Date/Time: 10/22/22 13:15 Surgeon: Blayne Beltrán MD Pre Op Diagnosis: esophageal varices,unspecified cirrhosis of liver Patient Data Age: 62 Gender: M Height: 1.83 m Weight: 109.1 kg Allergies Allergy/AdvReac Type Severity Reaction Status Date / Time Penicillins Allergy Severe swelling Verified 10/23/22 10:21 Home Medications Medication Instructions Recorded Confirmed Type cetirizine 10 mg tablet (Zyrtec) 10 mg PO DAILY 12/01/21 07/27/22 History propranolol 10 mg tablet 10 mg PO Q12H #180 tabs 03/20/22 07/27/22 Rx sertraline 100 mg tablet 200 mg PO DAILY 90 days #180 tabs 03/20/22 07/27/22 Rx sildenafil 25 mg tablet 25 mg PO DAILY PRN Sexual Activity 03/20/22 07/27/22 Rx #30 tabs losartan 50 mg-hydrochlorothiazide 1 tablet PO DAILY #90 tabs 06/02/22 07/27/22 Rx 12.5 mg tablet pantoprazole 40 mg tablet,delayed 40 mg PO QHS #90 tabs 06/02/22 07/27/22 Rx release semaglutide 1 mg/dose (2 mg/1.5 1 mg (0.75 mL) subcut WEEKLY 90 06/02/22 07/27/22 Rx mL) subcutaneous pen injector days #9.75 mL iron,carbonyl 65 mg-vitamin C 125 1 tablet PO DAILY #90 tabs 06/11/22 07/27/22 Rx mg tablet,delayed release (Vitron-C) bupropion HCl 150 mg 24 hr tablet, 300 mg PO QAM 90 days #180 tabs 09/21/22 10/13/22 Rx extended release Patient hx anesthesia problems: none Family hx anesthesia problems: none Results Review: All pre-operative results and documents have been reviewed as part of the pre-operative evaluation. [facility] Past Medical History Medical History (Updated 10/22/22 @ 13:17 by Tyler Griffiths DO) Adenomatous colon polyp Anxiety Asthma Cirrhosis Depression Esophageal varices determined by endoscopy GERD (gastroesophageal reflux disease) Hypertension Hypothyroidism Iron deficiency anemia MARINA (obstructive sleep apnea) CPAP Pancytopenia Thrombocytopenia Type 2 diabetes mellitus Social History Social History Smoking status: Never smoker Alcohol intake: never Substance use: never Substance use type: does not use Lack of Transportation: No Lack of Food: Never True Current Housing: I Have Housing Concerned About Future Housing: No Difficulty Paying Gas/Electric Bills: No Difficulty Paying for Meds: No Currently Unemployed: No Education: High School Diploma/GED Difficulty w/ Childcare or Family Care: No Living arrangements: alone Spiritual care concerns: No Anes - Eval Final PreProcedure Day of Procedure 10/22/22 13:15 Patient weight: obese Heart: regular rate and rhythm Lungs: clear to auscultation Airway: Mallampati scale class II Neurological: alert and oriented Last oral intake: >/= 8 hours ASA classification: IV Emergent: no Anesthetic plan: proceed Anesthesia type and monitoring: general GIVS and standard monitoring Results Review: All pre-operative results and documents have been reviewed as part of the pre-operative evaluation. Informed Consent: The patient's anesthetic plan and its attendant risks and benefits were discussed with the patient/family/POA. Questions were solicited and answers provided to the satisfaction of the patient/family/POA.
[2022-10-23 10:23] VITALS: BP 141/73; PULSE 74; RESP 18; TEMP 36.1; O2SAT 99
[2022-10-23] MEDS: LACTATED RINGERS 1,000 ML 150 ML IV CONT (10:35)
[2022-10-23 10:36] LABS: Glucose Point of Care 124 mg/dl (65-105)
--- NOTE | 2022-10-23 11:49 | PM.HPGS ---
History of Present Illness History of Present Illness Consent: Risks, benefits, and alternatives have been discussed and questions answered. Patient agrees to proceed with procedure. Chief complaint: esophageal varices,unspecified cirrhosis of liver Narrative: Ez Burgos is a 62 year old male with rivas cirrhosis, had EV ligated 06/2022, denies gib and doing well Review of Systems Constitutional: Constitutional: Denies headache(s) and Denies weakness Eyes: Eyes: Denies blurry vision ENT: Reports Normal hearing present, Denies headache(s) and Denies neck pain Cardiovascular: Cardiovascular: Denies chest pain and Denies dyspnea Respiratory: Respiratory: Denies dyspnea Gastrointestinal: Gastrointestinal: Reports no additional gastrointestinal complaints Genitourinary: Genitourinary: Denies dysuria Musculoskeletal: Musculoskeletal: Denies neck pain Integumentary/Breasts: Skin/Breast: Denies dry skin Neurologic: Reports Normal hearing present, Denies headache(s) and Denies weakness Psychiatric: Psychiatric: Denies anxiety Endocrine: Endocrine: Denies change in body appearance Hematologic/Lymphatic: Hematologic/Lymphatic: Denies easy bleeding Allergic/Immunologic: Allergic/Immunologic: Denies urticaria PMFSH Past Medical History Medical History (Updated 10/22/22 @ 13:17 by Tyler Griffiths DO) Adenomatous colon polyp Anxiety Asthma Cirrhosis Depression Esophageal varices determined by endoscopy GERD (gastroesophageal reflux disease) Hypertension Hypothyroidism Iron deficiency anemia MARINA (obstructive sleep apnea) CPAP Pancytopenia Thrombocytopenia Type 2 diabetes mellitus Social History Social History Smoking status: Never smoker Alcohol intake: never Substance use: never Substance use type: does not use Lack of Transportation: No Lack of Food: Never True Current Housing: I Have Housing Concerned About Future Housing: No Difficulty Paying Gas/Electric Bills: No Difficulty Paying for Meds: No Currently Unemployed: No Education: High School Diploma/GED Difficulty w/ Childcare or Family Care: No Living arrangements: alone Spiritual care concerns: No Meds Home Medications and Allergies Home Medications Medication Instructions Recorded Confirmed Type cetirizine 10 mg tablet (Zyrtec) 10 mg PO DAILY 12/01/21 07/27/22 History propranolol 10 mg tablet 10 mg PO Q12H #180 tabs 03/20/22 07/27/22 Rx sertraline 100 mg tablet 200 mg PO DAILY 90 days #180 tabs 11/18/22 03/27/23 Rx sildenafil 25 mg tablet 25 mg PO DAILY PRN Sexual Activity 03/20/22 07/27/22 Rx #30 tabs losartan 50 mg-hydrochlorothiazide 1 tablet PO DAILY #90 tabs 06/02/22 07/27/22 Rx 12.5 mg tablet pantoprazole 40 mg tablet,delayed 40 mg PO QHS #90 tabs 06/02/22 07/27/22 Rx release semaglutide 1 mg/dose (2 mg/1.5 1 mg (0.75 mL) subcut WEEKLY 90 06/02/22 07/27/22 Rx mL) subcutaneous pen injector days #9.75 mL iron,carbonyl 65 mg-vitamin C 125 1 tablet PO DAILY #90 tabs 06/11/22 07/27/22 Rx mg tablet,delayed release (Vitron-C) bupropion HCl 150 mg 24 hr tablet, 300 mg PO QAM 90 days #180 tabs 09/21/22 10/13/22 Rx extended release Allergies Allergy/AdvReac Type Severity Reaction Status Date / Time Penicillins Allergy Severe swelling Verified 10/23/22 10:21 Vital Signs Vital Signs - 24 hr 10/23/22 10:23 Temperature 97 F L Pulse Rate 74 Respiratory Rate 18 Blood Pressure 141/73 H Pulse Oximetry 99 Oxygen Delivery Room Air Exam Const: General: comfortable and no acute distress HENMT: Face/Nose/Sinus: Normal nares present Eyes: General: appearance normal, both eyes and all related structures Neck: Neck: no JVD Resp: Auscultation: clear to auscultation bilaterally Cardio: Rate: regular rate Rhythm: regular rhythm GI: Inspection: non-distended GI Palp: Yes Soft to palpation Skin: Genera
[2022-10-23 12:03] VITALS: BP 130/75; PULSE 66; RESP 20; O2SAT 100
[2022-10-23 12:13] VITALS: BP 132/72; PULSE 78; RESP 21; O2SAT 100
[2022-10-23 12:23] VITALS: BP 142/78; PULSE 63; RESP 15; O2SAT 100
== END 2022-10-23 12:32 | disposition home or self-care (01) ==
PROVIDERS: PCP Family Medicine; Visit Provider Internal Medicine Gastroenterology
PROC: 0DJ08ZZ Inspection of Upper Intestinal Tract, Via Natural or Artificial Opening Endoscopic (ICD-10-PCS; CPT 43235; principal; 2022-10-23 11:30)
DX: K75.81 Nonalcoholic steatohepatitis (NASH) (principal); I85.10 Secondary esophageal varices without bleeding; K29.70 Gastritis, unspecified, without bleeding; I10 Essential (primary) hypertension; E03.9 Hypothyroidism, unspecified; J45.909 Unspecified asthma, uncomplicated; K21.9 Gastro-esophageal reflux disease without esophagitis; E11.9 Type 2 diabetes mellitus without complications; G47.33 Obstructive sleep apnea (adult) (pediatric); D50.9 Iron deficiency anemia, unspecified; F41.9 Anxiety disorder, unspecified; Z79.899 Other long term (current) drug therapy; E66.9 Obesity, unspecified; Z68.31 Body mass index [BMI] 31.0-31.9, adult
CPT/HCPCS: 43235; 82948; J2001; J2704; J7120

== ENCOUNTER 2024-01-17 14:54 | Outpatient (CLI) | payer BC, SELFPAY ==
--- NOTE | ~2024-01-17 | CT_ITS ---
EXAMINATION: CT abdomen wo con DATE: 01/17/2024 15:47 INDICATION: Abdominal distention. TECHNIQUE: Computed tomography (CT) of the abdomen and pelvis was performed without intravenous contr ast. Automated exposure control and iterative reconstruction technique were employed. The dose-length product was 1298.20 mGy-cm. COMPARISON: None. FINDINGS: The visualized portions of the lung bases demonstrate a calcified nodule in right middle lo be, consistent with old granulomatous disease. No pleural effusion. The heart size is normal. No tamia cardial effusion. The liver demonstrates hypertrophy of left lateral segment and surface nodularity, consistent with cirrhosis. There is moderate splenomegaly. The gallbladder, pancreas, and adrenal gla nds are normal. There are cysts in the kidneys measuring up to 5.4 cm on the right. There are no dila seth loops of bowel. The appendix is normal. There is a large volume of ascites. There is edema of the intra-abdominal fat and body wall fat. Paraesophageal varices are noted. There is mild retroperitone al lymphadenopathy, likely reactive. There is moderate thoracic spondylosis and mild lumbar spondylos is. There is mild chronic anterior wedging of multiple thoracic vertebral bodies. IMPRESSION: 1. Cirrhosis of the liver with portal venous hypertension. 2. Large volume of ascites. Reviewed, dictated and finalized at location A.
[2024-01-17 15:22] LABS: Basophils Absolute Auto 0.03 K/mm3 (0.00-0.10); Basophils Percent Auto 0.6 % (0.0-1.0); Eosinophils Absolute Auto 0.11 K/mm3 (0.02-0.50); Hemoglobin 11.3 g/dL (14.0-18.0); Immature Granulocyte Absolute 0.02 K/mm3 (0.00-0.00); Immature Granulocyte Percent A 0.4 % (0.0-0.0); Lymphocytes Absolute Auto 0.75 K/mm3 (1.10-4.50); Lymphocytes Percent Auto 13.9 % (18.0-42.0); Mean Corpuscular HGB Conc 31.4 g/dL (32-36); Mean Corpuscular Hemoglobin 23.1 pg (27.0-31.0); Mean Corpuscular Volume 73.5 fL (78.0-102.0); Monocytes Absolute Auto 0.57 K/mm3 (0.10-0.90); Monocytes Percent Auto 10.5 % (2.0-11.0); Neutrophils Absolute Auto 3.93 K/mm3 (1.70-7.20); Neutrophils Percent Auto 72.6 % (50.0-70.0); Platelet Count Result 120 K/mm3 (150-420); Red Cell Distribution Width 18.3 % (11.6-14.4); White Blood Count 5.4 K/mm3 (4.8-10.8)
[2024-01-18 14:56] LABS: Alanine Aminotransferase 29 U/L (16-63); Albumin Level 3.5 g/dL (3.4-5.0); Alkaline Phosphatase 86 U/L (46-116); Anion Gap 8 mmol/L (4-12); Aspartate Amino Transferase 23 U/L (15-37); Blood Urea Nitrogen 12 mg/dL (7-18); Calcium 8.6 mg/dL (8.5-10.1); Carbon Dioxide 29 mmol/L (21-32); Chloride 101 mmol/L (98-108); Estimated Glomerular Filt Rate > 60; Ferritin 12 ng/mL (26-388); Glucose 116 mg/dL (70-99); Iron 34 ug/dL (65-175); Osmolality Calculated 286 mOsm/kg (285-295); Percent Iron Saturation 9 % (12-57); Sodium 138 mmol/L (136-145); Total Protein 6.2 g/dL (6.4-8.2)
== END 2024-01-17 14:55 | disposition home or self-care (01) ==
PROVIDERS: PCP Family Medicine; Visit Provider Family Medicine
DX: D50.9 Iron deficiency anemia, unspecified (principal); D64.9 Anemia, unspecified; E03.9 Hypothyroidism, unspecified; R14.0 Abdominal distension (gaseous); K74.60 Unspecified cirrhosis of liver; K76.6 Portal hypertension; R18.8 Other ascites
CPT/HCPCS: 36415; 74150; 80053; 82728; 83540; 83550; 84443; 85025

== ENCOUNTER 2024-02-07 16:01 | Inpatient (IN) | payer BC, SELFPAY ==
--- NOTE | ~2024-02-07 | CT_ITS ---
CT abdomen pelvis w con Ordering provider: Charisse Rainey PA-C History: 63 years Male with . abd pain, cirrhosis . Comparison: January 17, 2024 Technique: CT abdomen and pelvis with IV and without oral contrast. Automated exposure control and it erative reconstruction technique were employed. The dose-length product was 1353.54 mGy-cm. 100 mL Om nipaque 350 was given IV Findings: VISUALIZED LOWER CHEST: Normal. UPPER ABDOMINAL ORGANS: Liver: Irregular outline with Liver cirrhosis. Gallbladder: Normal. Spleen: Splenomegaly. Filling defect is seen in the splenic vein suggestive of thrombus. Stomach/duodenum: Varices are seen in the lower esophagus. Pancreas: Normal. Adrenals: Normal. Kidneys: Large cyst in the right kidney lower pole measuring 3.5 cm. PELVIC ORGANS: The bladder is underfilled.. BOWEL AND MESENTERY: Colon: No evidence of diverticulitis. Appendix is not demonstrated. Small Bowel: Normal. No obstruction. Peritoneum/mesentery: No free air. gross ascites is noted. No mesenteric lymphadenopathy. Small mesenteric lymph nodes are noted. RETROPERITONEUM: Mild atheromatous disease of the abdominal aorta. No retroperitoneal lymphadenopat hy. Small para-aortic lymph nodes with the largest measures 1.4 cm. MUSCULOSKELETAL: Superficial soft tissues: Edema in the subcutaneous tissues is noted. Fat-containing left inguinal he rnia. The superficial soft tissues are normal. Bones: Age appropriate degenerative changes of the spine. IMPRESSION: 1. Liver cirrhosis. 2. Gross ascites. 3. Thrombus in the splenic vein. 4. Splenomegaly. 5. Varicosities in the lower esophagus. Reviewed, dictated and finalized at location A.
--- NOTE | ~2024-02-07 | US_ITS ---
EXAMINATION: US paracentesis abd w/image DATE: 02/08/2024 12:00 INDICATION: Ascites. TECHNIQUE: The procedure and its risks, benefits, and alternatives were discussed with the patient. P otential risks discussed included bleeding and infection. The skin was prepped and draped in sterile fashion. 1% lidocaine was used for local anesthesia. Under ultrasound guidance, a 5 Fr catheter with trochar was advanced into the ascites in the left lower quadrant. Fluid was aspirated. The catheter w as removed, and a dressing was applied. There were no immediate complications. FINDINGS: Ultrasound images demonstrate ascites and the catheter within the fluid. IMPRESSION: 1. Successful ultrasound-guided paracentesis yielding 5000 mL of clear, yellow fluid. Reviewed, dictated and finalized at location A.
--- NOTE | ~2024-02-07 | US_ITS ---
EXAMINATION: US paracentesis abd w/image DATE: 02/10/2024 15:02 INDICATION: Ascites. TECHNIQUE: The procedure and its risks, benefits, and alternatives were discussed with the patient. P otential risks discussed included bleeding and infection. The skin was prepped and draped in sterile fashion. 1% lidocaine was used for local anesthesia. Under ultrasound guidance, an 18-gauge needle wa s advanced into the ascites in the left lower quadrant. Fluid was aspirated. The catheter was removed , and a dressing was applied. There were no immediate complications. FINDINGS: Ultrasound images demonstrate ascites and the needle within the fluid. IMPRESSION: 1. Successful ultrasound-guided paracentesis yielding 40 mL of clear, yellow fluid. Reviewed, dictated and finalized at location A. IMPRESSION: 1. Successful ultrasound-guided paracentesis yielding 40 mL of clear, yellow f luid.
--- NOTE | ~2024-02-07 | US_ITS ---
EXAMINATION: US retroperitoneal duplex ltd DATE: 02/09/2024 13:13 INDICATION: Portal vein thrombosis. TECHNIQUE: Multiple grayscale and Doppler ultrasound images of the abdomen were obtained. COMPARISON: CT abdomen and pelvis 02/07/2024 FINDINGS: There is a large volume of ascites. There is liver surface nodularity, consistent with cirr hosis. There is gallbladder wall thickening, likely interstitial edema. There is normal flow in main portal vein and right and left portal veins. The right, middle, and left hepatic veins are patent. Th ere is normal flow in the proper hepatic artery. IMPRESSION: 1. Normal portal veins. 2. Cirrhosis of the liver. 3. Large volume of ascites. Reviewed, dictated and finalized at location A.
--- NOTE | ~2024-02-07 | US_ITS ---
EXAMINATION: US paracentesis abd w/image DATE: 02/14/2024 11:57 INDICATION: Ascites. TECHNIQUE: The procedure and its risks and benefits were discussed with the patient. Potential risks discussed included bleeding and infection. The skin was prepped and draped in sterile fashion. 1% lid ocaine was used for local anesthesia. Under ultrasound guidance, a 5 Fr catheter with trochar was adv anced into the ascites in the left lower quadrant. Fluid was aspirated into vacuum bottles. The paulie ter was removed, and a dressing was applied. There were no immediate complications. FINDINGS: Ultrasound images demonstrate ascites and the catheter within the fluid. IMPRESSION: 1. Successful ultrasound-guided paracentesis yielding 5200 mL of yellowish fluid. Reviewed, dictated and finalized at location A. IMPRESSION: 1. Successful ultrasound-guided paracentesis yielding 5200 mL of yellowish flu id.
--- NOTE | ~2024-02-07 | XR_ITS ---
XR chest 2V Ordering provider: Charisse Rainey PA-C History: 63 years Male with . SOB . Comparison: March 27, 2022 FINDINGS: MEDIASTINUM: The cardiac silhouette is not enlarged. LUNGS: No infiltrates, effusions or pneumothorax. OTHER: No free air under the diaphragm. IMPRESSION: No acute cardiopulmonary pathology. Reviewed, dictated and finalized at location A.
[2024-02-07 16:58] VITALS: BP 176/90; PULSE 98; RESP 18; TEMP 37.1; O2SAT 100
[2024-02-07 18:47] VITALS: BP 168/96; PULSE 94; RESP 15; TEMP 36.5; O2SAT 100
[2024-02-07 19:04] LABS: Basophils Percent Auto 0.2 % (0.2-1.2); Eosinophils Percent Auto 0.4 % (0-4.4); Hematocrit 40.5 % (42.0-52.0); Hemoglobin 12.7 g/dL (14.0-18.0); Immature Granulocyte Absolute 0.05 K/mm3 (0.00-0.031); Immature Granulocyte Percent A 0.5 % (0-0.5); Lymphocytes Absolute Auto 0.65 K/mm3 (0.9-3.2); Lymphocytes Percent Auto 6.8 % (18.3-44.2); Mean Corpuscular HGB Conc 31.4 g/dl (32-36); Mean Corpuscular Hemoglobin 22.9 pg (26-34); Mean Corpuscular Volume 73.1 fl (80-100); Monocytes Absolute Auto 0.9 K/mm3 (0.1-0.6); Neutrophils Absolute Auto 7.9 K/mm3 (1.3-6.7); Neutrophils Percent Auto 83.1 % (45.5-73.1); Platelet Count Result 264 k/mm3 (150-375); Red Blood Count 5.54 M/mm3 (4.6-6.20); Red Cell Distribution Width 18.7 % (11.5-14.5); White Blood Count 9.5 K/mm3 (4.5-10.0)
[2024-02-07 19:17] LABS: Alanine Aminotransferase 53 U/L (6-50); Albumin Level 3.3 g/dL (3.5-5.1); Alkaline Phosphatase 162 U/L (38-126); Anion Gap 9 mmol/L (4-12); Aspartate Amino Transferase 40 U/L (17-59); Bilirubin,Total 1.5 mg/dL (0.2-1.3); Blood Urea Nitrogen 14 mg/dL (9-20); Calcium 8.3 mg/dL (8.4-10.2); Carbon Dioxide 26 mmol/L (22-30); Chloride 97 mmol/L (98-107); Estimated CRCL calculation 138 ml/min; Estimated Glomerular Filt Rate > 60; Glucose 188 mg/dL (65-110); Lipase 35 U/L (23-300); Potassium 3.9 mmol/L (3.4-5.0); Sodium 132 mmol/L (137-145)
[2024-02-07 19:20] LABS: Lactic Acid Reflex 2.1 mmol/L (0.7-2.0)
[2024-02-07 19:21] LABS: Ammonia < 9 umol/L (9-30)
[2024-02-07 19:26] LABS: NT Pro B Type Natriuretic Pept 300 pg/mL (19.9-100)
[2024-02-07 19:28] LABS: Add Urine Microscopic? YES; Appearance Urine Cloudy (Clear); Bacteria Urine None Seen /hpf; Bilirubin Urine 1+ (Negative); Blood Urine Negative (Negative); Color Urine Dark Yellow (Yellow); Glucose Urine UA Negative (Negative); Hyaline Casts Urine Present /lpf; Ketones Urine Trace mg/dL (Negative); Leukocyte Esterase Ur Trace LEU/UL (Negative); Nitrate Urine Negative (Negative); Protein Urine 1+ mg/dL (Negative); Specific Grav Ur 1.024 (1.001-1.035); Squamous Epithelial Cell Urine Occasional /hpf (Few); WBC Urine 0-5 /hpf (0-3)
[2024-02-07 19:40] LABS: Platelet Estimate Adequate (Adequate)
[2024-02-07 19:41] LABS: Anisocytosis 2+; Hypochromasia 1+; Microcytosis 2+ (NORMAL); Schistocytes None Seen
--- NOTE | 2024-02-07 19:44 | ED.ABDPAIN ---
HPI - Abdominal Pain General Chief Complaint: Abdominal Pain Stated Complaint: abd swelling Time Seen by Provider: 02/07/24 19:19 Source: patient Mode of arrival: ambulatory Limitations: no limitations History of Present Illness HPI narrative: This is a 63 year old male that presents to the ER for abdominal discomfort. Reports he has history of cirrhosis. Had to have a paracentesis a couple weeks ago. Has had again worsening bloating to the point where he cannot eat and is having difficulty breathing. Denies fevers, vomiting. Related Data Home Medications Medication Instructions Recorded Confirmed cetirizine 10 mg tablet (Zyrtec) 10 mg PO DAILY 12/01/21 02/07/24 pantoprazole 40 mg tablet,delayed 40 mg PO BID 02/07/24 02/07/24 release Allergies Allergy/AdvReac Type Severity Reaction Status Date / Time Penicillins Allergy Severe swelling Verified 02/07/24 22:40 Review of Systems Review of Systems: CONSTITUTIONAL: Denies fever GASTROINTESTINAL: Reports abdominal pain, nausea. Denies vomiting, or diarrhea. GENITOURINARY: Denies dysuria All systems reviewed & are unremarkable except as noted in HPI and below PMFSH Past Medical History Medical History Adenomatous colon polyp Anxiety Asthma Cirrhosis Depression Esophageal varices determined by endoscopy GERD (gastroesophageal reflux disease) Hypertension Hypothyroidism Iron deficiency anemia MARINA (obstructive sleep apnea) CPAP Pancytopenia Thrombocytopenia Type 2 diabetes mellitus Social History Social History Smoking status: Never smoker Alcohol intake: never Substance use: never Substance use type: does not use Lack of Transportation: No Lack of Food: Never True Current Housing: I Have Housing Concerned About Future Housing: No Difficulty Paying Gas/Electric Bills: No Difficulty Paying for Meds: No Currently Unemployed: No Education: High School Diploma/GED Difficulty w/ Childcare or Family Care: No Living arrangements: alone Spiritual care concerns: No Exam Narrative: GENERAL: Chronically ill-appearing, well-nourished, and in no acute distress. HEAD: Normocephalic, atraumatic. EYES: EOMI. CHEST: Clear to auscultation. No respiratory distress. No wheezes rales or rhonchi HEART: Regular rate and rhythm. No murmur heard. Normal peripheral pulses. ABDOMEN: Distended, normal active bowel sounds. EXTREMITIES: Normal range of motion. No edema. SKIN: Warm, dry, no rash. NEURO: No focal deficits. Alert and oriented x3. PSYCH: Normal mood and affect Course Course Emergency Course: Patient updated on his workup and recommendation for admission Consultations Consultation #1: Spoke with Dr. Beltrán about patient and workup who will consult Date: 02/07/24 Consultation #2: Spoke with hospitalist about patient and workup who accepts admission Date: 02/07/24 Vital Signs Vital signs: Vital Signs Temperature 98.7 F 02/07/24 16:58 Pulse Rate 98 02/07/24 16:58 Respiratory Rate 18 02/07/24 16:58 Blood Pressure 176/90 H 02/07/24 16:58 Pulse Oximetry 100 02/07/24 16:58 Oxygen Delivery Room Air 02/07/24 16:58 Temperature 97.9 F 02/07/24 21:59 Pulse Rate 94 02/07/24 21:59 Respiratory Rate 16 02/07/24 21:59 Blood Pressure 141/80 H 02/07/24 21:59 Pulse Oximetry 97 02/07/24 21:59 Oxygen Delivery Room Air 02/07/24 16:58 MDM - Abdominal Pain MDM Narrative Medical decision making narrative: Patient presents to the emergency department for worsening abdominal discomfort, bloating, history of cirrhosis. He is afebrile and nontoxic appearing. His vitals are stable. Cbc without leukocytosis. Metabolic panel appears stable from blood work a couple of weeks ago when he had his paracentesis. Urine without evidence of infection. Chest x-ray without acute cardiopul
--- NOTE | 2024-02-07 19:45 | ECG_ITS ---
Test Date: 2024-02-07 20:21:48 Measurements Intervals [place] Rate: 96 P: -41 NE: 147 QRS: -9 QRSD: 88 T: -6 QT: 351 QTc: 444 Interpretive Statements SINUS RHYTHM LOW QRS VOLTAGE BORDERLINE ECG No previous ECG available for comparison Electronically Signed On 02-08-2024 07:27:51 CDT by Kyaw Daniels M.D.
[2024-02-07 20:08] LABS: INR 1.4; Partial Thromboplastin Time 37.5 Seconds (22.3-36.8); Prothrombin Time 17.3 Seconds (11.1-14.7)
[2024-02-07 21:04] VITALS: BP 173/86; PULSE 96; RESP 18; TEMP 36.6; O2SAT 96
[2024-02-07 21:59] VITALS: BP 141/80; PULSE 94; RESP 16; TEMP 36.6; O2SAT 97
[2024-02-07 22:00] LABS: Reflex Lactic Acid Yes or No Add Lactic
[2024-02-07 22:24] LABS: Lactic Acid 1.5 mmol/L (0.7-2.0)
--- NOTE | 2024-02-07 23:23 | ADMGEN ---
This patient, Ez Burgos, was admitted to Medical Room 241-01. Patient/family oriented to hospital policies and general routines including ID bracelet, bed and alarms, visiting hours, pain management, procedures, bathroom and other care routines, personal items, smoking policy, room service/diet, and visiting hours. Information on how to activate the Rapid Response Team has been discussed. Patient/Family are encouraged to report perceived risks to care and to ask questions if they do not understand what they are told or what they should do.
[2024-02-08] VITALS (8 sets, daily range): BP systolic 134–158; BP diastolic 61–83; PULSE 77–92; RESP 14–22; TEMP 36.7–37.3; O2SAT 96–97
--- NOTE | 2024-02-08 08:43 | PM.IMHP ---
H&P: HPI History of Present Illness Date/Time: 02/08/24 08:43 Chief Complaint: Abdominal pain Narrative: 63-year-old male with past medical history cirrhosis, esophageal varices on EGD in 2022, type 2 diabetes, asthma and hypertension presents to the hospital for abdominal discomfort. He states that he started having lightning bolts of pain to his abdomen on Wednesday while working. He states that the pain was intermittent occurring every 15-20 minutes for a few hours. After this he started to notice worsening abdominal distension and shortness of breath. He denies melena, hematochezia, hematemesis and fevers. He called his primary care provider who told him to report to the emergency department. Patient had a similar episode approximately 2 weeks ago that required a paracentesis be performed at [facility]. He had 5L removed at that time. During the previous admission at [facility] the discussed starting diuretics however he states that this did not occur. Patient denies swelling anywhere else. He denies chest pain, nausea/vomiting, abdominal pain. ED workup: CBC without leukocytosis, H/H 11.3/36.0 (appears at baseline), PLT 120. PT/INR 17.3/1.4. PTT 37.5. Chemistry unremarkable. Iron 34, TIBC 394, % sat 9, Ferritin 12. LFTs WNL. Urinalysis with cloudy appearance, 1+ protein, trace ketones, 1+ bilirubin, trace leukocytes, 6-10 WBC, occasional squamous and no bacteria seen. Chest XR: No acute cardiopulmonary pathology. Abdomen/pelvis CT: Liver cirrhosis , gross ascites, thrombus in the splenic vein, splenomegaly, varicosities in the lower esophagus. Review of Systems Review of Systems: All systems reviewed & are unremarkable except as noted in HPI and below PMFSH Past Medical History Medical History (Updated 02/08/24 @ 14:58 by Stuart Devi MD) Adenomatous colon polyp Anxiety Asthma Cirrhosis Depression Esophageal varices determined by endoscopy GERD (gastroesophageal reflux disease) Hypertension Hypothyroidism Iron deficiency anemia MARINA (obstructive sleep apnea) CPAP Pancytopenia Thrombocytopenia Type 2 diabetes mellitus Surgical History Surgical History (Updated 02/08/24 @ 14:55 by Melanie Marvin PA-C) History of hernia repair History of tonsillectomy and adenoidectomy Family History Family History Father Ulcer Emphysema lung Social History Social History (Updated 02/08/24 @ 14:55 by Melanie Marvin PA-C) Social History: Lives alone with his 2 cats. Smoking status: Never smoker Alcohol intake: never Substance use: never Substance use type: does not use Do You Feel Safe in your Home?: Yes Lack of Transportation: No Lack of Food: Never True Current Housing: I Have Housing Concerned About Future Housing: YES Difficulty Paying Gas/Electric Bills: YES Difficulty Paying for Meds: YES Currently Unemployed: No Education: High School Diploma/GED Difficulty w/ Childcare or Family Care: No Living arrangements: alone Occupation/Education: occupation Additional occupation/education comments: Working at [employer]. Gender identity (if verbalized by the patient): Male Spiritual care concerns: No Meds Home Medications and Allergies Home Medications Medication Instructions Recorded Confirmed Type cetirizine 10 mg tablet (Zyrtec) 10 mg PO DAILY 12/01/21 02/07/24 History sertraline 100 mg tablet 200 mg PO DAILY 90 days #180 tabs 03/20/22 02/07/24 Rx losartan 50 mg-hydrochlorothiazide 1 tablet PO DAILY #90 tabs 06/02/22 02/07/24 Rx 12.5 mg tablet bupropion HCl 150 mg 24 hr tablet, 300 mg PO QAM 90 days #180 tabs 05/05/23 02/07/24 Rx extended release propranolol 10 mg tablet 10 mg PO Q12H #180 tabs 05/05/23 02/07/24 Rx docusate sodium 100 mg capsule 100 mg PO DAILY PRN constipation 01/17/24 02/07/24 Rx #30 caps ondansetron 8 mg disintegrating 8 mg PO Q12H PRN nausea and
--- NOTE | 2024-02-08 09:42 | WPDGICN ---
Assessment and Plan Assessment and plan (1) Cirrhosis: Qualifiers: Ascites presence: with ascites Hepatic cirrhosis type: unspecified hepatic cirrhosis Qualified Code(s): K74.60 - Unspecified cirrhosis of liver; R18.8 - Other ascites Code(s): K74.60 - Unspecified cirrhosis of liver Status: Acute (2) Elevated LFTs: Code(s): R79.89 - Other specified abnormal findings of blood chemistry Status: Acute (3) Hyponatremia: Code(s): E87.1 - Hypo-osmolality and hyponatremia Status: Acute (4) Iron deficiency anemia: Qualifiers: Iron deficiency anemia type: unspecified iron deficiency Qualified Code(s): D50.9 - Iron deficiency anemia, unspecified Code(s): D50.9 - Iron deficiency anemia, unspecified Status: Acute (5) Esophageal varices determined by endoscopy: Code(s): I85.00 - Esophageal varices without bleeding Status: Acute (6) Splenic vein thrombosis: Code(s): I82.890 - Acute embolism and thrombosis of other specified veins Status: Acute Plan 1. Cirrhosis-TREVINO related/ascites/elevated LFT's: MELD NA 17. Decompensated. CT 02/07/2024 showed varices in the lower esophagus, liver cirrhosis, gross ascites, thrombosis of the splenic vein, splenomegaly. Most recent LFTs: total bilirubin 1.5, AST 14, ALT 53, alkaline phosphatase 162, INR 1.4, albumin 3.3, platelets 264. Ammonia < 9, sodium 132, potassium 3.9, BUN 14, creatinine 0.60, GFR > 60. Per patient he had a paracentesis performed at [facility] approximately 2 weeks ago and he thinks he had 5 L removed, patient states that this was the 1st time he ever required a paracentesis. He has never been on diuretics. Ascites returned and became more problematic last weekend. No history of HE. No ascites, scleral icterus, or asterixis. Variceal screening: History of varices. Last EGD 06/22/2022 showed grade 2 varices and 4 bands were placed. A 6-8 week follow up EGD was recommended which the patient is over due for. Beta antonia: Prior to admission patient was on propranolol 10 mg b.i.d. but patient could not confirm that he was taking that is Start propranolol 10 mg b.i.d. Continue BID PPI Plan for EGD tomorrow Ok for clear liquid diet today NPO after midnight Last paracentesis: Per patient approximately 2 weeks ago at which time he had around 5 L removed, but this could not be confirmed. Current diuretics: Patient currently on no diuretics. Paracentesis ordered along with fluid analysis Start Lasix 20 mg daily and spironolactone 50 mg daily, will closely monitor electrolytes while inpatient to optimize diuretics to Lasix 40 mg and spironolactone 100 mg daily prior to discharge Diet: 2 gram sodium diet. Fluid restriction: None History of HE: No history of HE. ammonia < 9 this admission HCC screening: Last imaging CT abd/pelvis w/contrast 02/07/2024 showed liver cirrhosis. Last ultrasound was August of 2023 which showed no mass or lesions. AFP: No recent AFP available but 1 has been ordered. . Patient will require repeat imaging and labs every 6 months Which will be managed as outpatient 2. Splenic vein thrombosis: CT abd/pelvis w/contrast 02/07/2024 showed thrombus in the splenic vein. Consider CT with multiphasic protocol to confirm thrombosis, if confirmed will need to consult Hematology for anticoagulation management Plan for EGD tomorrow 3. Iron deficiency anemia: HGB 13, HCT 41, MCV 73, platelets 264. Total iron 34, TIBC 394, iron saturation 9%, and ferritin 12. No signs of active GI bleed to include hematemesis, hematochezia, or melena. Plan for EGD tomorrow Continue to monitor H&H and transfuse as needed but do not transfuse if Hgb is >7 due to esophageal varices and portal hypertension 4. Hyponatremia: Today's labs show sodium 132, potassium 3.9. monitor closely after starting diuretics, if electrolytes and kidney function remained stable will incre
[2024-02-08] MEDS: FERROUS SULFATE 325 MG TABLET DR PO ×2 (09:59→17:13)
[2024-02-08] MEDS: FUROSEMIDE 20 MG TABLET PO (12:00)
[2024-02-08] MEDS: PANTOPRAZOLE 40 MG TABLET PO (12:00)
[2024-02-08] MEDS: PROPRANOLOL HCL 10 MG TABLET PO (12:00)
[2024-02-08] MEDS: SPIRONOLACTONE 50 MG TABLET PO (12:00)
[2024-02-08 13:03] LABS: Appearance Peritoneal Fluid Clear (Clear); Color Peritoneal Fluid Yellow (Colorless); Lymphocytes Peritoneal Fluid 15 %; Macrophages Peritoneal Fluid 2 %; Mesothelial Cells Peritoneal Fluid 1 %; Monocytes Peritoneal Fluid 4 %; Neutrophils Peritoneal Fluid 78 % (0-25); Nucleated Cells Peritoneal Flu 1585 /uL (0-500); RBC Peritoneal Fluid < 2000 /uL (0-10000); Source Peritoneal Fluid Peritoneal Fluid
--- NOTE | 2024-02-08 14:13 | WPDGIPROGNO ---
Subjective Date/time seen: 02/08/24 14:13 Objective Data Vital Signs Vital Signs: Vital Signs - 24 hr 02/07/24 16:58 02/07/24 18:47 02/07/24 21:04 Temperature 98.7 F 97.7 F 97.9 F Pulse Rate 98 94 96 Respiratory Rate 18 15 18 Blood Pressure 176/90 H 168/96 H 173/86 H Pulse Oximetry 100 100 96 Oxygen Delivery Room Air 02/07/24 21:59 02/07/24 23:10 02/08/24 00:00 Temperature 97.9 F Pulse Rate 94 92 Respiratory Rate 16 Blood Pressure 141/80 H Pulse Oximetry 97 Oxygen Delivery Room Air 02/08/24 00:00 02/08/24 03:46 02/08/24 04:00 Temperature 98.1 F 98.3 F Pulse Rate 90 89 91 Respiratory Rate 16 14 Blood Pressure 136/69 151/82 H Pulse Oximetry 97 97 Oxygen Delivery 02/08/24 08:00 02/08/24 08:00 02/08/24 12:00 Temperature 99.2 F Pulse Rate 91 91 Respiratory Rate 22 H Blood Pressure 154/83 H Pulse Oximetry 96 Oxygen Delivery Room Air 02/08/24 12:00 Temperature 98.2 F Pulse Rate 88 Respiratory Rate 20 Blood Pressure 158/78 H Pulse Oximetry 97 Oxygen Delivery Intake/Output Intake/Output: Intake & Output 02/05/24 02/06/24 02/07/24 02/08/24 23:59 23:59 23:59 23:59 Intake Total 480 Output Total 5000 Balance -4520 Meds/Results Medications: Active Medications Generic Name Dose Route Start Last Admin Trade Name Lefty PRN Reason Stop Dose Admin Ferrous Sulfate 325 mg 02/08/24 09:00 02/08/24 09:59 Ferrous Sulfate [address] PO 325 mg BID CHERIE Administration Pantoprazole Sodium 40 mg 02/08/24 10:40 02/08/24 12:00 Pantoprazole 40 Mg Tablet PO 40 mg Q12HR CHERIE Administration Propranolol HCl 10 mg 02/08/24 10:20 02/08/24 12:00 Propranolol Hcl 10 Mg Tablet PO 10 mg Q12HR CHERIE Administration Spironolactone 50 mg 02/08/24 10:20 02/08/24 12:00 Spironolactone 50 Mg Tablet PO 50 mg QAM CHERIE Administration Radiology Results: ITS Impressions Chest X-Ray 02/07/24 20:10 IMPRESSION: No acute cardiopulmonary pathology. Abdomen/Pelvis CT 02/07/24 20:11 IMPRESSION: 1. Liver cirrhosis. 2. Gross ascites. 3. Thrombus in the splenic vein. 4. Splenomegaly. 5. Varicosities in the lower esophagus. Paracentesis Ultrasound 02/08/24 12:05 IMPRESSION: 1. Successful ultrasound-guided paracentesis yielding 5000 mL of clear, yellow fluid. Labs Labs: Laboratory Results - last 24 hr 02/07/24 02/07/24 02/07/24 18:51 18:59 22:06 WBC 9.5 RBC 5.54 Hgb 12.7 L Hct 40.5 L MCV 73.1 L MCH 22.9 L MCHC 31.4 L RDW 18.7 H Plt Count 264 MPV 11.0 H Immature Gran % (Auto) 0.5 Neut % (Auto) 83.1 H Lymph % (Auto) 6.8 L [place] % (Auto) 9.0 H Eos % (Auto) 0.4 Baso % (Auto) 0.2 Lymph # (Auto) 0.65 L [place] # (Auto) 0.9 H Eos # (Auto) 0.0 Baso # (Auto) 0.0 Abs Immat Gran (auto) 0.05 H Absolute Neuts (auto) 7.9 H Absolute Nucleated RBC 0.000 Nucleated RBC % 0.0 Platelet Estimate Adequate Hypochromasia 1+ Anisocytosis 2+ Microcytosis 2+ Schistocytes None seen PT 17.3 H INR 1.4 APTT 37.5 H Sodium 132 L Potassium 3.9 Chloride 97 L Carbon Dioxide 26 Anion Gap 9 BUN 14 Creatinine 0.60 L Estim Creat Clear Calc 138 Estimated GFR > 60 Glucose 188 H Lactic Acid 2.1 H 1.5 Calcium 8.3 L Total Bilirubin 1.5 H AST 40 ALT 53 H Alkaline Phosphatase 162 H Ammonia < 9 L NT-Pro-B Natriuret Pep 300 H Total Protein 7.0 Albumin 3.3 L Lipase 35 Urine Color Dark yellow Urine Appearance Cloudy H Urine pH 6.0 Ur Specific [place] 1.024 Urine Protein 1+ H Urine Glucose (UA) Negative Urine Ketones Trace H Ur Blood (Man) Negative Urine Nitrate Negative Urine Bilirubin 1+ H Urine Urobilinogen 1.0 Leukocyte Esterase Rfl Trace H Urine RBC 6-10 H Urine WBC 0-5 Ur Squamous Epith Cell
--- NOTE | 2024-02-08 14:16 | WPDGIPROGNO ---
Progress Note: A&P Assessment and Plan (1) Splenic vein thrombosis: Code(s): I82.890 - Acute embolism and thrombosis of other specified veins Status: Acute (2) Hyponatremia: Code(s): E87.1 - Hypo-osmolality and hyponatremia Status: Acute (3) Cirrhosis: Qualifiers: Ascites presence: with ascites Hepatic cirrhosis type: unspecified hepatic cirrhosis Qualified Code(s): K74.60 - Unspecified cirrhosis of liver; R18.8 - Other ascites Code(s): K74.60 - Unspecified cirrhosis of liver Status: Acute (4) Ascites: Code(s): R18.8 - Other ascites Status: Acute (5) Spontaneous bacterial peritonitis: Code(s): K65.2 - Spontaneous bacterial peritonitis Status: Acute Plan This patient has new onset ascites presumably secondary to steatotic liver disease. Peritoneal fluid drained today showing evidence of spontaneous bacterial peritonitis, (more than 1200 PMNs per mm3), therefore we will treat him with ceftriaxone 1 g q.24 hours along with albumin, 1.5 grams/kilogram today (100 g) and 1 gram/kilogram on day 3 (80 g) . We will start spironolactone 100 mg q.d. plus Lasix 40 mg q.d. and will switch propranolol for carvedilol low dose, 6.25 mg PO q.d.. Regarding the evaluation of varices will perform an EGD tomorrow, and we will obtain Doppler sonogram of the liver with special attention to the portal vein to rule out portal vein thrombosis since CT scan showed evidence of splenic vein thrombosis. Lastly, this patient is a candidate for liver transplant evaluation given his MELD sodium = 17 and MELD 3.0 = 15 and the presence of significant ascites. Will continue to follow closely. Time Spent With Patient Time with patient: 25 - 35 minutes Subjective Date/time seen: 02/08/24 14:16 Interval history: This patient has a history of cirrhosis presumably due to metabolic associated liver disease. He has undergone repeated EGDs with endoscopic band ligation of esophageal varices, last in 2022. He has never been on any diuretics and approximately 2 weeks ago he had increased abdominal girth, and was found to have ascites. He had a paracentesis performed at [facility] draining 5 L of ascitic fluid. Over the past week has been noticing again increase in abdominal girth which became more problematic. He has been experiencing early satiety decreased appetite and decreased energy. He denies melena, hematemesis, abdominal pain or fever. Review of Systems Review of Systems: All systems reviewed & are unremarkable except as noted in HPI and below Exam Const: General: comfortable; No no acute distress Eyes: Sclera: sclerae normal Resp: Effort & Inspection: normal respiratory effort Auscultation: clear to auscultation bilaterally, no crackles, no rales and lung sounds not diminished Cardio: Rate: regular rate Rhythm: regular rhythm GI: Other: The abdominal exam was performed after 5 L of ascitic fluid were removed earlier today. It is soft but distension is still evident with positive shifting dullness. Skin: Other: No jaundice Neuro: Other: alert and oriented x 3 Extrem: General: no edema and no pedal edema Psych: Mental Status: mental status grossly normal Objective Data Vital Signs Vital Signs: Vital Signs - 24 hr 02/07/24 16:58 02/07/24 18:47 02/07/24 21:04 Temperature 98.7 F 97.7 F 97.9 F Pulse Rate 98 94 96 Respiratory Rate 18 15 18 Blood Pressure 176/90 H 168/96 H 173/86 H Pulse Oximetry 100 100 96 Oxygen Delivery Room Air 02/07/24 21:59 02/07/24 23:10 02/08/24 00:00 Temperature 97.9 F Pulse Rate 94 92 Respiratory Rate 16 Blood Pressure 141/80 H Pulse Oximetry 97 Oxygen Delivery Room Air 02/08/24 00:00 02/08/24 03:46 02/08/24 04:00 Temperature 98.1 F 98.3 F Pulse Rate 90 89 91 Respiratory Rate 16 14 Blood Pressure 136/69 151/82 H Pulse Oximetry 97 97 Oxygen Delivery
[2024-02-08] MEDS: ALBUMIN HUMAN 25% 25 GM/100 ML 100 ML IVPB (16:00)
[2024-02-08 17:08] LABS: Glucose Point of Care 184 mg/dl (65-105)
[2024-02-08 20:33] LABS: Glucose Point of Care 159 mg/dl (65-105)
[2024-02-09] VITALS (14 sets, daily range): BP systolic 115–151; BP diastolic 67–79; PULSE 65–86; RESP 16–22; TEMP 36.1–37.4; O2SAT 93–100
[2024-02-09 07:40] LABS: Hemoglobin A1C 7.1 % (<5.7)
[2024-02-09 07:43] LABS: Glucose Point of Care 168 mg/dl (65-105)
--- NOTE | 2024-02-09 07:51 | PM.IMPN ---
Progress Note: A&P Assessment and Plan (1) Spontaneous bacterial peritonitis: Code(s): K65.2 - Spontaneous bacterial peritonitis Status: Acute Assessment and Plan: - LFTs WNL on admission, now slight elevated with tot bili 1.5, AST 40, ALT 53, alk phos 162 - Abdomen/pelvis CT: Liver cirrhosis , gross ascites, thrombus in the splenic vein, splenomegaly, varicosities in the lower esophagus. - Antibiotics: Rocephin started on 02/07 - Diet: clear liquid with low Na, NPO at midnight for EGD - GI consulted s/p paracentesis on 02/07 with 5L removed evidence of spontaneous bacterial peritonitis (more than 1200 PMNs per mm3) started on albumin 1.5 grams/kilogram today (100 g) and 1 gram/kilogram on day 3 (80 g) started spironolactone 100 mg and lasix 40 mg daily changed propranolol to carvedilol 6.25 mg daily plan for EGD tomorrow to evaluate varices doppler sonogram of the liver ordered to rule out portal vein thrombosis given that CT showed evidence of splenic vein thrombosis - gi is following (2) Ascites: Code(s): R18.8 - Other ascites Status: Acute Assessment and Plan: - LFTs WNL on admission, now slight elevated with tot bili 1.5, AST 40, ALT 53, alk phos 162 - Chest XR: No acute cardiopulmonary pathology. - Abdomen/pelvis CT: Liver cirrhosis , gross ascites, thrombus in the splenic vein, splenomegaly, varicosities in the lower esophagus. See plan for spontaneous bacterial peritonitis #1 (3) Cirrhosis: Qualifiers: Ascites presence: with ascites Hepatic cirrhosis type: unspecified hepatic cirrhosis Qualified Code(s): K74.60 - Unspecified cirrhosis of liver; R18.8 - Other ascites Code(s): K74.60 - Unspecified cirrhosis of liver Status: Acute Assessment and Plan: Chronic. See plan for spontaneous bacterial peritonitis #1 (4) Splenic vein thrombosis: Code(s): I82.890 - Acute embolism and thrombosis of other specified veins Status: Acute Assessment and Plan: See plan for spontaneous bacterial peritonitis #1 (5) Elevated LFTs: Code(s): R79.89 - Other specified abnormal findings of blood chemistry Status: Acute Assessment and Plan: - LFTs WNL on admission, now slight elevated with tot bili 1.5, AST 40, ALT 53, alk phos 162 See plan for spontaneous bacterial peritonitis #1 (6) Hypertension: Code(s): I10 - Essential (primary) hypertension Status: Acute Assessment and Plan: Chronic, continue home medications. coreg 6.25 mg daily (7) Type 2 diabetes mellitus: Code(s): E11.9 - Type 2 diabetes mellitus without complications Status: Acute Assessment and Plan: - hypoglycemia protocol - POC blood glucose ACHS - home medication - Ozempic, however this was recently denied by insurance - correct regimen ordered - low dose TIDWM - A1C ordered- 7.1 (8) Iron deficiency anemia: Qualifiers: Iron deficiency anemia type: unspecified iron deficiency Qualified Code(s): D50.9 - Iron deficiency anemia, unspecified Code(s): D50.9 - Iron deficiency anemia, unspecified Status: Acute Assessment and Plan: H/H 11.3/36 on admission appears at baseline with Iron 34, TIBC 394, % sat 9, Ferritin 12. - No signs of active bleeding. Denying hematochezia, hematemesis, melena and hematuria. - Started on iron supplementation Time Spent With Patient Time with patient: Greater than 35 minutes Subjective Date/time seen: 02/09/24 07:51 Interval history: pt is seen and examined. GI is following- some meds were changed and adjusted- tolerating it well so far. Review of Systems Constitutional: Constitutional: Denies chills Eyes: Eyes: Denies blurry vision Cardiovascular: Cardiovascular: Denies chest pain and Denies diaphoresis Respiratory: Respiratory: Denies chest congestion Gastrointestinal: Gastrointestinal: Reports bloating Genitourinary: Genitourinar
[2024-02-09 08:10] LABS: Basophils Percent Auto 0.1 % (0.2-1.2); Eosinophils Absolute Auto 0.1 K/mm3 (0-0.3); Hematocrit 34.6 % (42.0-52.0); Immature Granulocyte Absolute 0.02 K/mm3 (0.00-0.031); Immature Granulocyte Percent A 0.3 % (0-0.5); Immature Platelet Fraction Pct 5.1 % (0.9-11.2); Lymphocytes Absolute Auto 0.71 K/mm3 (0.9-3.2); Lymphocytes Percent Auto 10.6 % (18.3-44.2); Mean Corpuscular HGB Conc 31.8 g/dl (32-36); Mean Corpuscular Hemoglobin 23.2 pg (26-34); Mean Platelet Volume 11.5 fl (7.4-10.4); Monocytes Absolute Auto 0.6 K/mm3 (0.1-0.6); Monocytes Percent Auto 8.6 % (2.6-8.5); Neutrophils Absolute Auto 5.3 K/mm3 (1.3-6.7); Neutrophils Percent Auto 79.4 % (45.5-73.1); Platelet Count Result 192 k/mm3 (150-375); Red Blood Count 4.74 M/mm3 (4.6-6.20); Red Cell Distribution Width 17.9 % (11.5-14.5); White Blood Count 6.7 K/mm3 (4.5-10.0)
[2024-02-09 08:25] LABS: Alanine Aminotransferase 41 U/L (6-50); Albumin Level 2.6 g/dL (3.5-5.1); Alkaline Phosphatase 114 U/L (38-126); Anion Gap 3 mmol/L (4-12); Aspartate Amino Transferase 48 U/L (17-59); Bilirubin,Total 1.3 mg/dL (0.2-1.3); Blood Urea Nitrogen 13 mg/dL (9-20); Calcium 7.4 mg/dL (8.4-10.2); Carbon Dioxide 29 mmol/L (22-30); Chloride 99 mmol/L (98-107); Estimated CRCL calculation 134 ml/min; Estimated Glomerular Filt Rate > 60; Glucose 155 mg/dL (65-110); Potassium 3.7 mmol/L (3.4-5.0); Sodium 131 mmol/L (137-145)
[2024-02-09 09:09] LABS: Hypochromasia 1+; Ovalocytes 1+; Platelet Estimate Adequate (Adequate); Schistocytes None Seen
[2024-02-09 09:10] LABS: Anisocytosis 1+; Macrocytosis 1+ (NORMAL)
[2024-02-09] MEDS: LACTATED RINGERS 1,000 ML 150 ML IV CONT (09:26)
[2024-02-09 09:28] LABS: Glucose Point of Care 158 mg/dl (65-105)
--- NOTE | 2024-02-09 09:49 | WPDANESEPPF ---
Anes - Initial Pre Proc Eval Procedure: Operation Date: 02/09/24 10:30 Proposed Procedures p Esophagogastroduodenoscopy - Stuart Devi MD Date/Time: 02/09/24 09:49 Surgeon: Melanie Marvin PA-C Pre Op Diagnosis: Cirrhosis, Ascites Patient Data Age: 63 Gender: M Height: 1.83 m Weight: 101.2 kg Last Vital Signs Temp 97.9 F 02/09/24 09:20 Pulse 79 02/09/24 09:20 Resp 18 02/09/24 09:20 BP 151/75 H 02/09/24 09:20 Pulse Ox 100 02/09/24 09:20 O2 Del Method Room Air 02/09/24 09:20 Allergies Allergy/AdvReac Type Severity Reaction Status Date / Time Penicillins Allergy Severe swelling Verified 02/09/24 09:17 Home Medications Medication Instructions Recorded Confirmed Type cetirizine 10 mg tablet (Zyrtec) 10 mg PO DAILY 12/01/21 02/09/24 History sertraline 100 mg tablet 200 mg PO DAILY 90 days #180 tabs 03/20/22 02/09/24 Rx losartan 50 mg-hydrochlorothiazide 1 tablet PO DAILY #90 tabs 06/02/22 02/09/24 Rx 12.5 mg tablet bupropion HCl 150 mg 24 hr tablet, 300 mg PO QAM 90 days #180 tabs 05/05/23 02/09/24 Rx extended release propranolol 10 mg tablet 10 mg PO Q12H #180 tabs 05/05/23 02/09/24 Rx docusate sodium 100 mg capsule 100 mg PO DAILY PRN constipation 01/17/24 02/09/24 Rx #30 caps ondansetron 8 mg disintegrating 8 mg PO Q12H PRN nausea and 01/17/24 02/09/24 Rx tablet vomiting #20 tabs pantoprazole 40 mg tablet,delayed 40 mg PO BID 02/07/24 02/09/24 History release Laboratory Tests 02/08/24 02/08/24 02/08/24 10:14 11:16 17:00 WBC RBC Hgb Hct MCV MCH MCHC RDW Plt Count MPV Immature Gran % (Auto) Neut % (Auto) Lymph % (Auto) [place] % (Auto) Eos % (Auto) Baso % (Auto) Lymph # (Auto) [place] # (Auto) Eos # (Auto) Baso # (Auto) Abs Immat Gran (auto) Absolute Neuts (auto) Absolute Nucleated RBC Nucleated RBC % Platelet Estimate % Immature Plt Fraction Hypochromasia Anisocytosis Macrocytosis Ovalocytes Schistocytes Sodium Potassium Chloride Carbon Dioxide Anion Gap BUN Creatinine Estim Creat Clear Calc Estimated GFR Glucose POC Capillary Glucose 184 H mg/dl (65-105) Hemoglobin A1c Calcium Total Bilirubin AST ALT Alkaline Phosphatase Total Protein Albumin 3.0 L g/dL (3.5-5.1) Alpha Fetoprotein Pending Peritoneal Source Peritoneal fluid Peritoneal Color Yellow (Colorless) Peritoneal Appearance Clear (Clear) Peritoneal RBC < 2000 /uL ([id number]) Periton Nuc Cells 1585 H /uL (0-500) Periton Neutrophils 78 H % (0-25) Periton Lymphocytes 15 % Peritoneal Monocytes 4 % Periton Mesothelial 1 % Periton Macrophages 2 % Peritoneal Tot Protein Pending Peritoneal Albumin Pending 02/08/24 02/09/24 02/09/24 19:32 05:15 05:18 WBC 6.7 K/mm3 (4.5-10.0) RBC 4.74 M/mm3 (4.6-6.20) Hgb 11.0 L g/dL (14.0-18.0) Hct 34.6 L % (42.0-52.0) MCV 73.0 L fl (80-100) MCH 23.2 L pg (26-34) MCHC 31.8 L g/dl (32-36) RDW 17.9 H % (11.5-14.5) Plt Count 192 k/mm3 (150-375) MPV 11.5 H fl (7.4-10.4) Immature Gran % (Auto) 0.3 % (0-0.5) Neut % (Auto) 79.4 H % (45.5-73.1) Lymph % (Auto) 10.6
--- NOTE | 2024-02-09 09:57 | P.PNAN_ITS ---
Anes - Initial Pre Proc Eval Procedure: Operation Date: 02/09/24 10:30 Proposed Procedures p Esophagogastroduodenoscopy - Stuart Devi MD Date/Time: 02/09/24 09:57 Surgeon: Melanie Marvin PA-C Pre Op Diagnosis: Cirrhosis, Ascites Patient Data Age: 63 Gender: M Height: 1.83 m Weight: 101.2 kg Last Vital Signs Temp 97.9 F 02/09/24 09:20 Pulse 79 02/09/24 09:20 Resp 18 02/09/24 09:20 BP 151/75 H 02/09/24 09:20 Pulse Ox 100 02/09/24 09:20 O2 Del Method Room Air 02/09/24 09:20 Allergies Allergy/AdvReac Type Severity Reaction Status Date / Time Penicillins Allergy Severe swelling Verified 02/09/24 09:17 Home Medications Medication Instructions Recorded Confirmed Type cetirizine 10 mg tablet (Zyrtec) 10 mg PO DAILY 12/01/21 02/09/24 History sertraline 100 mg tablet 200 mg PO DAILY 90 days #180 tabs 03/20/22 02/09/24 Rx losartan 50 mg-hydrochlorothiazide 1 tablet PO DAILY #90 tabs 06/02/22 02/09/24 Rx 12.5 mg tablet bupropion HCl 150 mg 24 hr tablet, 300 mg PO QAM 90 days #180 tabs 05/05/23 02/09/24 Rx extended release propranolol 10 mg tablet 10 mg PO Q12H #180 tabs 05/05/23 02/09/24 Rx docusate sodium 100 mg capsule 100 mg PO DAILY PRN constipation 01/17/24 02/09/24 Rx #30 caps ondansetron 8 mg disintegrating 8 mg PO Q12H PRN nausea and 01/17/24 02/09/24 Rx tablet vomiting #20 tabs pantoprazole 40 mg tablet,delayed 40 mg PO BID 02/07/24 02/09/24 History release Laboratory Tests 02/08/24 02/08/24 02/08/24 10:14 11:16 17:00 WBC RBC Hgb Hct MCV MCH MCHC RDW Plt Count MPV Immature Gran % (Auto) Neut % (Auto) Lymph % (Auto) [place] % (Auto) Eos % (Auto) Baso % (Auto) Lymph # (Auto) [place] # (Auto) Eos # (Auto) Baso # (Auto) Abs Immat Gran (auto) Absolute Neuts (auto) Absolute Nucleated RBC Nucleated RBC % Platelet Estimate % Immature Plt Fraction Hypochromasia Anisocytosis Macrocytosis Ovalocytes Schistocytes Sodium Potassium Chloride Carbon Dioxide Anion Gap BUN Creatinine Estim Creat Clear Calc Estimated GFR
--- NOTE | 2024-02-09 13:48 | WPDGIPROGNO ---
Progress Note: A&P Assessment and Plan (1) Spontaneous bacterial peritonitis: Code(s): K65.2 - Spontaneous bacterial peritonitis Status: Acute Plan The patient has cirrhosis, MELD 3.0 score 15 , moderate ascites with associated spontaneous bacterial peritonitis, currently on day 2. Of ceftriaxone 1 g Q 24 hours, received a loading dose of albumin 100 g yesterday, due for a 2nd dose of 80 g in 48 hours. We will plan on repeating diagnostic paracentesis to follow neutrophil count tomorrow. Renal function remains OK and blood pressure is still normal. We might consider increasing carvedilol dose to 6.25 b.i.d. on discharge. We will continue diuretics, Aldactone 100 mg q.d. plus Lasix 40 mg q.d. and will check renal function carefully. Time Spent With Patient Time with patient: 15 - 25 minutes Subjective Date/time seen: 02/09/24 13:48 Interval history: The patient is feeling well. He had an EGD this morning, showing grade 2 distal esophageal varices with no bleeding or signs of imminent bleeding. He is tolerating food very well. We still do not have complete inputs and outputs from today. Review of Systems Review of Systems: All systems reviewed & are unremarkable except as noted in HPI and below Objective Data Vital Signs Vital Signs: Vital Signs - 24 hr 02/08/24 16:00 02/08/24 19:34 02/09/24 00:00 Temperature 98.2 F 97.0 F L Pulse Rate 77 80 72 Respiratory Rate 20 20 Blood Pressure 134/61 150/75 H Pulse Oximetry 96 93 Oxygen Delivery 02/08/24 21:30 02/08/24 20:00 02/09/24 00:00 Temperature Pulse Rate 82 78 Respiratory Rate Blood Pressure Pulse Oximetry Oxygen Delivery Room Air 02/09/24 04:00 02/09/24 04:00 02/09/24 08:00 Temperature 97.7 F 97.3 F L Pulse Rate 68 75 70 Respiratory Rate 20 16 Blood Pressure 121/70 139/78 Pulse Oximetry 97 97 Oxygen Delivery 02/09/24 09:20 02/09/24 10:51 02/09/24 11:01 Temperature 97.9 F Pulse Rate 79 76 76 Respiratory Rate 18 20 22 H Blood Pressure 151/75 H 126/78 115/79 Pulse Oximetry 100 98 96 Oxygen Delivery Room Air Room Air Room Air 02/09/24 11:11 Temperature Pulse Rate 74 Respiratory Rate 19 Blood Pressure 138/79 Pulse Oximetry 97 Oxygen Delivery Room Air Intake/Output Intake/Output: Intake & Output 02/06/24 02/07/24 02/08/24 02/09/24 23:59 23:59 23:59 23:59 Intake Total 1270 100 Output Total 5900 Balance -4630 100 Meds/Results Medications: Active Medications Generic Name Dose Route Start Last Admin Trade Name Freq PRN Reason Stop Dose Admin Carvedilol 6.25 mg 02/09/24 09:00 Carvedilol 6.25 Mg Tablet PO DAILY CHERIE Dextrose 12.5 gm 02/08/24 15:11 Dextrose 50% 25 Gm/50 Ml Syringe IV PUSH PRN PRN Hypoglycemia Protocol Ferrous Sulfate 325 mg 02/08/24 09:00 02/08/24 17:13 Ferrous Sulfate [address] PO 325 mg BID CHERIE Administration Furosemide 40 mg 02/09/24 09:00 Furosemide 40 Mg Tablet PO DAILY CHERIE Glucagon 1 mg 02/08/24 15:11 Glucagon For Inj 1 Mg Vial IM PRN PRN Hypoglycemia Protocol Glucose 15 gm 02/08/24 15:11 Glucose Oral Gel 15 Gm Of Glucse In 37.5 Gm Tube PO PRN PRN Hypoglycemia Protocol Ceftriaxone Sodium 1 gm in 50 mls @ 100 mls/hr 02/08/24 15:00 02/08/24 15:34 Rocephin 1 Gm/Ns 50 Ml IVPB 100 mls/hr Q24H CHERIE Administration Dextrose 1,000 mls @ 100 mls/hr 02/08/24 15:11 Dextrose 5% 1,000 Ml IVPB PRN PRN Hypoglycemia Protocol Insulin Aspart 2 - 5 units 02/08/24 17:00 02/08/24 17:13 Insulin Aspart (*Bkc) 100 Units/Ml SUB-Q Not Given TIDWM [facility] Protocol Spironolactone 100 mg 02/09/24 09:00 Spironolactone 50 Mg Tablet PO QAM [facility] Radiology Results: ITS Impressions Chest X-Ray 02/07/24 20:10 IMPRESSION: No acute cardiopulmonary pathology. Abdomen/Pelvis CT 02/07/24 20:11 I
[2024-02-09] MEDS: SPIRONOLACTONE 50 MG TABLET 100 MG PO (13:52)
[2024-02-09] MEDS: carvediloL 6.25 MG TABLET PO (13:52)
[2024-02-09] MEDS: FERROUS SULFATE 325 MG TABLET DR PO ×2 (13:53→18:03)
[2024-02-09] MEDS: FUROSEMIDE 40 MG TABLET PO (13:53)
[2024-02-09 14:37] LABS: Alanine Aminotransferase 47 U/L (6-50); Alkaline Phosphatase 132 U/L (38-126); Anion Gap 4 mmol/L (4-12); Aspartate Amino Transferase 64 U/L (17-59); Bilirubin,Total 1.4 mg/dL (0.2-1.3); Blood Urea Nitrogen 13 mg/dL (9-20); Calcium 7.7 mg/dL (8.4-10.2); Carbon Dioxide 29 mmol/L (22-30); Chloride 97 mmol/L (98-107); Estimated CRCL calculation 134 ml/min; Estimated Glomerular Filt Rate > 60; Glucose 270 mg/dL (65-110); Potassium 3.9 mmol/L (3.4-5.0); Sodium 130 mmol/L (137-145)
[2024-02-09 14:56] LABS: Glucose Point of Care 264 mg/dl (65-105)
[2024-02-09] MEDS: INSULIN ASPART (*BKC) 100 UNITS/ML SUB-Q ×2 (14:57→18:02)
[2024-02-09 16:50] LABS: Glucose Point of Care 206 mg/dl (65-105)
[2024-02-09 20:48] LABS: Glucose Point of Care 213 mg/dl (65-105)
[2024-02-10] VITALS (8 sets, daily range): BP systolic 133–150; BP diastolic 63–88; PULSE 73–97; RESP 16–20; TEMP 36.3–37.1; O2SAT 94–99
--- NOTE | 2024-02-10 07:39 | PM.IMPN ---
Progress Note: A&P Assessment and Plan (1) Spontaneous bacterial peritonitis: Code(s): K65.2 - Spontaneous bacterial peritonitis Status: Acute Assessment and Plan: - LFTs WNL on admission, now slight elevated with tot bili 1.5, AST 40, ALT 53, alk phos 162 - Abdomen/pelvis CT: Liver cirrhosis , gross ascites, thrombus in the splenic vein, splenomegaly, varicosities in the lower esophagus. - Antibiotics: Rocephin started on 02/07 - Diet: clear liquid with low Na, NPO at midnight for EGD - GI consulted s/p paracentesis on 02/07 with 5L removed evidence of spontaneous bacterial peritonitis (more than 1200 PMNs per mm3) started on albumin 1.5 grams/kilogram today (100 g) and 1 gram/kilogram on day 3 (80 g) started spironolactone 100 mg and lasix 40 mg daily changed propranolol to carvedilol 6.25 mg daily plan for EGD tomorrow to evaluate varices doppler sonogram of the liver ordered to rule out portal vein thrombosis given that CT showed evidence of splenic vein thrombosis - gi is following- EGD 02/08- grade 2 distal esophageal varices with no bleeding or signs of imminent bleeding -on ceftriaxone 1 gm (2) Ascites: Code(s): R18.8 - Other ascites Status: Acute Assessment and Plan: - LFTs WNL on admission, now slight elevated with tot bili 1.5, AST 40, ALT 53, alk phos 162 - Chest XR: No acute cardiopulmonary pathology. - Abdomen/pelvis CT: Liver cirrhosis , gross ascites, thrombus in the splenic vein, splenomegaly, varicosities in the lower esophagus. See plan for spontaneous bacterial peritonitis #1 (3) Cirrhosis: Qualifiers: Ascites presence: with ascites Hepatic cirrhosis type: unspecified hepatic cirrhosis Qualified Code(s): K74.60 - Unspecified cirrhosis of liver; R18.8 - Other ascites Code(s): K74.60 - Unspecified cirrhosis of liver Status: Acute Assessment and Plan: Chronic. See plan for spontaneous bacterial peritonitis #1 (4) Splenic vein thrombosis: Code(s): I82.890 - Acute embolism and thrombosis of other specified veins Status: Acute Assessment and Plan: See plan for spontaneous bacterial peritonitis #1 (5) Elevated LFTs: Code(s): R79.89 - Other specified abnormal findings of blood chemistry Status: Acute Assessment and Plan: - LFTs WNL on admission, now slight elevated with tot bili 1.5, AST 40, ALT 53, alk phos 162 See plan for spontaneous bacterial peritonitis #1 (6) Hypertension: Code(s): I10 - Essential (primary) hypertension Status: Acute Assessment and Plan: Chronic, continue home medications. coreg 6.25 mg daily (7) Type 2 diabetes mellitus: Code(s): E11.9 - Type 2 diabetes mellitus without complications Status: Acute Assessment and Plan: - hypoglycemia protocol - POC blood glucose ACHS - home medication - Ozempic, however this was recently denied by insurance - correct regimen ordered - low dose TIDWM - A1C ordered- 7.1 - will be able to restart semaglutide once discharged- discussed (8) Iron deficiency anemia: Qualifiers: Iron deficiency anemia type: unspecified iron deficiency Qualified Code(s): D50.9 - Iron deficiency anemia, unspecified Code(s): D50.9 - Iron deficiency anemia, unspecified Status: Acute Assessment and Plan: H/H 11.3/36 on admission appears at baseline with Iron 34, TIBC 394, % sat 9, Ferritin 12. - No signs of active bleeding. Denying hematochezia, hematemesis, melena and hematuria. - Started on iron supplementation Plan Urinary retention overnight- straight cathed with about 300 mg. Will need to monitor this closer- and keep updated record. Discussed with RN. If retention- will consult urology Time Spent With Patient Time with patient: Greater than 35 minutes Subjective Date/time seen: 02/10/24 07:39 Interval history: Pt is seen and examined. He had an EGD yesterday- gra
[2024-02-10 08:16] LABS: Glucose Point of Care 213 mg/dl (65-105); Platelet Count Result 244 k/mm3 (150-375)
[2024-02-10 08:30] LABS: Anion Gap 5 mmol/L (4-12); Blood Urea Nitrogen 13 mg/dL (9-20); Calcium 7.5 mg/dL (8.4-10.2); Carbon Dioxide 29 mmol/L (22-30); Chloride 96 mmol/L (98-107); Estimated CRCL calculation 136 ml/min; Estimated Glomerular Filt Rate > 60; Glucose 192 mg/dL (65-110); Potassium 3.8 mmol/L (3.4-5.0); Sodium 130 mmol/L (137-145)
[2024-02-10 08:40] LABS: INR 1.4; Partial Thromboplastin Time 33.8 Seconds (22.3-36.8); Prothrombin Time 17.8 Seconds (11.1-14.7)
[2024-02-10 09:15] LABS: Hematocrit 37.4 % (42.0-52.0); Mean Corpuscular HGB Conc 32.1 g/dl (32-36); Mean Corpuscular Hemoglobin 23.3 pg (26-34); Mean Corpuscular Volume 72.8 fl (80-100); Red Blood Count 5.14 M/mm3 (4.6-6.20); Red Cell Distribution Width 18.1 % (11.5-14.5); White Blood Count 7.9 K/mm3 (4.5-10.0)
[2024-02-10 11:55] LABS: Glucose Point of Care 209 mg/dl (65-105)
--- NOTE | 2024-02-10 14:34 | WPDGIPROGNO ---
Progress Note: A&P Assessment and Plan (1) Spontaneous bacterial peritonitis: Code(s): K65.2 - Spontaneous bacterial peritonitis Status: Acute (2) Cirrhosis: Qualifiers: Ascites presence: with ascites Hepatic cirrhosis type: unspecified hepatic cirrhosis Qualified Code(s): K74.60 - Unspecified cirrhosis of liver; R18.8 - Other ascites Code(s): K74.60 - Unspecified cirrhosis of liver Status: Acute (3) Ascites: Code(s): R18.8 - Other ascites Status: Acute Plan will continue to prescribe antibiotics for total 5 days, albumin infusion according to SBP protocol. Will check his ascitic fluid neutrophil count later. Avoid urine catheterization unless there is clear evidence of urine retention, to avoid further sources for potential infection. Will continue monitoring metabolic profile with emphasis on renal function. Time Spent With Patient Time with patient: less than 15 minutes Subjective Date/time seen: 02/10/24 14:34 Interval history: The patient feels well. He continues to receive Rocephin 1 g Q 24 hours. He is due for his next opting does, 80 g this evening. Will do follow-up diagnostic paracentesis to check neutrophil count in the ascitic fluid. Total volume output in 24 hours approximately 1200 mL. He has not received his furosemide dose yet. There are no new complaints. Exam Const: General: comfortable and no acute distress Resp: Auscultation: clear to auscultation bilaterally GI: GI Palp: Yes Soft to palpation Other: Positive wave sign, non tense. Objective Data Vital Signs Vital Signs: Vital Signs - 24 hr 02/09/24 16:00 02/09/24 16:00 02/09/24 19:56 Temperature 98.4 F 99.3 F Pulse Rate 83 76 83 Respiratory Rate 18 18 Blood Pressure 137/79 139/67 Pulse Oximetry 97 97 Oxygen Delivery 02/09/24 23:25 02/09/24 20:28 02/09/24 20:00 Temperature 98.8 F Pulse Rate 81 82 Respiratory Rate 20 Blood Pressure 145/75 H Pulse Oximetry 97 Oxygen Delivery Room Air 02/10/24 00:00 02/10/24 04:00 02/10/24 04:00 Temperature 97.4 F L Pulse Rate 81 73 79 Respiratory Rate 20 Blood Pressure 144/79 H Pulse Oximetry 94 Oxygen Delivery 02/10/24 08:31 02/10/24 08:00 02/10/24 08:00 Temperature 98.7 F Pulse Rate 81 84 Respiratory Rate 16 Blood Pressure 143/88 H Pulse Oximetry 97 Oxygen Delivery Room Air 02/10/24 12:00 Temperature Pulse Rate 89 Respiratory Rate Blood Pressure Pulse Oximetry Oxygen Delivery Intake/Output Intake/Output: Intake & Output 02/07/24 02/08/24 02/09/24 02/10/24 23:59 23:59 23:59 23:59 Intake Total 1320 930 Output Total 5900 800 450 Balance -4580 130 -450 Meds/Results Medications: Active Medications Generic Name Dose Route Start Last Admin Trade Name Freq PRN Reason Stop Dose Admin Carvedilol 6.25 mg 02/09/24 09:00 02/09/24 13:52 Carvedilol 6.25 Mg Tablet PO 6.25 mg DAILY CHERIE Administration Dextrose 12.5 gm 02/08/24 15:11 Dextrose 50% 25 Gm/50 Ml Syringe IV PUSH PRN PRN Hypoglycemia Protocol Ferrous Sulfate 325 mg 02/08/24 09:00 02/09/24 18:03 Ferrous Sulfate [address] PO 325 mg BID CHERIE Administration Furosemide 40 mg 02/09/24 09:00 02/09/24 13:53 Furosemide 40 Mg Tablet PO 40 mg DAILY CHERIE Administration Glucagon 1 mg 02/08/24 15:11 Glucagon For Inj 1 Mg Vial IM PRN PRN Hypoglycemia Protocol Glucose 15 gm 02/08/24 15:11 Glucose Oral Gel 15 Gm Of Glucse In 37.5 Gm Tube PO PRN PRN Hypoglycemia Protocol Ceftriaxone Sodium 1 gm in 50 mls @ 100 mls/hr 02/08/24 15:00 02/09/24 15:25 Rocephin 1 Gm/Ns 50 Ml IVPB Infused Q24H CHERIE Infusion Dextrose 1,000 mls @ 100 mls/hr 02/08/24 15:11 Dextrose 5% 1,000 Ml IVPB PRN PRN Hypoglycemia Protocol Albumin Human 100 mls @ 60 mls/hr 02/10/24 14:30 [place]
[2024-02-10] MEDS: carvediloL 6.25 MG TABLET PO (15:27)
[2024-02-10] MEDS: SPIRONOLACTONE 50 MG TABLET 100 MG PO (15:28)
[2024-02-10] MEDS: FUROSEMIDE 40 MG TABLET PO (15:28)
[2024-02-10] MEDS: FERROUS SULFATE 325 MG TABLET DR PO ×2 (15:28→17:42)
[2024-02-10 15:41] LABS: Appearance Peritoneal Fluid Hazy (Clear); Color Peritoneal Fluid Yellow (Colorless); Source Peritoneal Fluid Peritoneal Fluid
[2024-02-10 15:42] LABS: Lymphocytes Peritoneal Fluid 13 %; Macrophages Peritoneal Fluid 17 %; Mesothelial Cells Peritoneal Fluid 4 %; Neutrophils Peritoneal Fluid 66 % (0-25); Nucleated Cells Peritoneal Flu 1731 /uL (0-500); RBC Peritoneal Fluid < 2000 /uL (0-10000)
[2024-02-10] MEDS: ALBUMIN HUMAN IVPB (16:29)
[2024-02-10 16:45] LABS: Glucose Point of Care 187 mg/dl (65-105)
[2024-02-10] MEDS: ALBUMIN HUMAN 25% 25 GM/100 ML 100 ML IVPB ×3 (18:12→20:13)
[2024-02-10] MEDS: INSULIN GLARGINE (*BKC) 100 UNITS/ML 10 UNITS SUB-Q (20:11)
[2024-02-10 21:08] LABS: Glucose Point of Care 205 mg/dl (65-105)
[2024-02-10 21:18] LABS: Total Protein Peritoneal Fluid <3.0 g/dL
[2024-02-11] VITALS (10 sets, daily range): BP systolic 121–141; BP diastolic 64–76; PULSE 67–87; RESP 14–20; TEMP 36.3–36.8; O2SAT 97–99
[2024-02-11 04:37] LABS: Basophils Percent Auto 0.2 % (0.2-1.2); Eosinophils Absolute Auto 0.1 K/mm3 (0-0.3); Eosinophils Percent Auto 1.3 % (0-4.4); Hematocrit 31.3 % (42.0-52.0); Hemoglobin 9.8 g/dL (14.0-18.0); Immature Granulocyte Absolute 0.02 K/mm3 (0.00-0.031); Immature Granulocyte Percent A 0.4 % (0-0.5); Immature Platelet Fraction Pct 4.5 % (0.9-11.2); Lymphocytes Percent Auto 10.6 % (18.3-44.2); Mean Corpuscular HGB Conc 31.3 g/dl (32-36); Mean Corpuscular Hemoglobin 23.1 pg (26-34); Mean Corpuscular Volume 73.6 fl (80-100); Mean Platelet Volume 11.7 fl (7.4-10.4); Monocytes Absolute Auto 0.5 K/mm3 (0.1-0.6); Monocytes Percent Auto 9.5 % (2.6-8.5); Neutrophils Absolute Auto 3.7 K/mm3 (1.3-6.7); Platelet Count Result 139 k/mm3 (150-375); Red Blood Count 4.25 M/mm3 (4.6-6.20); Red Cell Distribution Width 17.8 % (11.5-14.5); White Blood Count 4.7 K/mm3 (4.5-10.0)
[2024-02-11 04:51] LABS: Anion Gap 9 mmol/L (4-12); Blood Urea Nitrogen 14 mg/dL (9-20); Calcium 7.5 mg/dL (8.4-10.2); Carbon Dioxide 25 mmol/L (22-30); Chloride 96 mmol/L (98-107); Estimated CRCL calculation 135 ml/min; Estimated Glomerular Filt Rate > 60; Glucose 170 mg/dL (65-110); Potassium 3.6 mmol/L (3.4-5.0); Sodium 130 mmol/L (137-145)
[2024-02-11 04:57] LABS: Anisocytosis 2+; Hypochromasia 1+; Microcytosis 1+ (NORMAL); Ovalocytes 1+; Platelet Estimate Decreased (Adequate); Schistocytes None Seen
--- NOTE | 2024-02-11 07:36 | PM.IMPN ---
Progress Note: A&P Assessment and Plan (1) Spontaneous bacterial peritonitis: Code(s): K65.2 - Spontaneous bacterial peritonitis Status: Acute Assessment and Plan: - LFTs WNL on admission, now slight elevated with tot bili 1.5, AST 40, ALT 53, alk phos 162 - Abdomen/pelvis CT: Liver cirrhosis , gross ascites, thrombus in the splenic vein, splenomegaly, varicosities in the lower esophagus. - Antibiotics: Rocephin started on 02/07 - Diet: clear liquid with low Na, NPO at midnight for EGD - GI consulted s/p paracentesis on 02/07 with 5L removed evidence of spontaneous bacterial peritonitis (more than 1200 PMNs per mm3) started on albumin 1.5 grams/kilogram today (100 g) and 1 gram/kilogram on day 3 (80 g) started spironolactone 100 mg and lasix 40 mg daily changed propranolol to carvedilol 6.25 mg daily plan for EGD tomorrow to evaluate varices doppler sonogram of the liver ordered to rule out portal vein thrombosis given that CT showed evidence of splenic vein thrombosis - gi is following- EGD 02/08- grade 2 distal esophageal varices with no bleeding or signs of imminent bleeding -on ceftriaxone 1 gm- continue- pending peritoneal fluids studies 02/10- de escalated to PO antibiotics (2) Ascites: Code(s): R18.8 - Other ascites Status: Acute Assessment and Plan: - LFTs WNL on admission, now slight elevated with tot bili 1.5, AST 40, ALT 53, alk phos 162 - Chest XR: No acute cardiopulmonary pathology. - Abdomen/pelvis CT: Liver cirrhosis , gross ascites, thrombus in the splenic vein, splenomegaly, varicosities in the lower esophagus. See plan for spontaneous bacterial peritonitis #1 (3) Cirrhosis: Qualifiers: Ascites presence: with ascites Hepatic cirrhosis type: unspecified hepatic cirrhosis Qualified Code(s): K74.60 - Unspecified cirrhosis of liver; R18.8 - Other ascites Code(s): K74.60 - Unspecified cirrhosis of liver Status: Acute Assessment and Plan: Chronic. See plan for spontaneous bacterial peritonitis #1 (4) Splenic vein thrombosis: Code(s): I82.890 - Acute embolism and thrombosis of other specified veins Status: Acute Assessment and Plan: See plan for spontaneous bacterial peritonitis #1 (5) Elevated LFTs: Code(s): R79.89 - Other specified abnormal findings of blood chemistry Status: Acute Assessment and Plan: - LFTs WNL on admission, now slight elevated with tot bili 1.5, AST 40, ALT 53, alk phos 162 See plan for spontaneous bacterial peritonitis #1 (6) Hypertension: Code(s): I10 - Essential (primary) hypertension Status: Acute Assessment and Plan: Chronic, continue home medications. coreg 6.25 mg daily - reviewed- 135'3/66's -stable - continue (7) Type 2 diabetes mellitus: Code(s): E11.9 - Type 2 diabetes mellitus without complications Status: Acute Assessment and Plan: - hypoglycemia protocol - POC blood glucose ACHS - home medication - Ozempic, however this was recently denied by insurance - correct regimen ordered - low dose TIDWM - A1C ordered- 7.1 - will be able to restart semaglutide once discharged- discussed (8) Iron deficiency anemia: Qualifiers: Iron deficiency anemia type: unspecified iron deficiency Qualified Code(s): D50.9 - Iron deficiency anemia, unspecified Code(s): D50.9 - Iron deficiency anemia, unspecified Status: Acute Assessment and Plan: H/H 11.3/36 on admission appears at baseline with Iron 34, TIBC 394, % sat 9, Ferritin 12. - No signs of active bleeding. Denying hematochezia, hematemesis, melena and hematuria. - Started on iron supplementation Plan Urinary retention - voided without difficulties last night and today- monitor Time Spent With Patient Time with patient: Greater than 35 minutes Subjective Date/time seen: 02/11/24 07:36 Interval history: Pt is seen and examined.
[2024-02-11 08:27] LABS: Glucose Point of Care 166 mg/dl (65-105)
[2024-02-11 09:28] LABS: Albumin Peritoneal Fluid 1.1 g/dL
[2024-02-11] MEDS: SPIRONOLACTONE 50 MG TABLET 100 MG PO (10:09)
[2024-02-11] MEDS: carvediloL 6.25 MG TABLET PO (10:09)
[2024-02-11] MEDS: FUROSEMIDE 40 MG TABLET PO (10:09)
[2024-02-11] MEDS: FERROUS SULFATE 325 MG TABLET DR PO ×3 (10:10→17:56)
[2024-02-11 12:23] LABS: Glucose Point of Care 197 mg/dl (65-105)
[2024-02-11 12:49] LABS: Alpha Fetoprotein Tumor Marker 1.7 ng/mL (<6.1)
--- NOTE | 2024-02-11 13:50 | WPDGIPROGNO ---
Progress Note: A&P Assessment and Plan (1) Spontaneous bacterial peritonitis: Code(s): K65.2 - Spontaneous bacterial peritonitis Status: Acute Plan The patient is being treated for spontaneous bacterial peritonitis and ascites is being managed. Ceftriaxone 1 g q.24 hours should be restarted today and ciprofloxacin discontinued. Will increase furosemide to 60 mg q.d. and leave spironolactone unchanged, 100 mg q.d. Will watch daily weight and urine output carefully, always monitoring renal function on a daily basis with complete metabolic panel. Time Spent With Patient Time: Time with patient: 15 - 25 minutes Subjective Date/time seen: 02/11/24 13:50 Interval history: The patient is feeling better, denies fever or abdominal pain. He states he has urinated More than the day before. Review of Systems Review of Systems: All systems reviewed & are unremarkable except as noted in HPI and below Exam Const: General: comfortable and no acute distress Resp: Effort & Inspection: normal respiratory effort GI: GI Palp: Yes Soft to palpation Other: unchanged compared to yesterday. Extrem: General: normal to inspection Objective Data Vital Signs Vital Signs: Vital Signs - 24 hr 02/10/24 15:27 02/10/24 16:00 02/10/24 16:00 Temperature 97.8 F Pulse Rate 92 89 97 Respiratory Rate 16 Blood Pressure 146/82 H Pulse Oximetry 96 Oxygen Delivery 02/10/24 20:00 02/10/24 20:00 02/10/24 20:00 Temperature 98.2 F Pulse Rate 82 82 Respiratory Rate 20 Blood Pressure 133/73 Pulse Oximetry 97 Oxygen Delivery Room Air 02/10/24 23:57 02/11/24 00:00 02/11/24 03:55 Temperature 98.6 F Pulse Rate 78 79 74 Respiratory Rate 20 20 Blood Pressure 137/63 135/68 Pulse Oximetry 97 97 Oxygen Delivery 02/11/24 04:00 02/11/24 08:00 02/11/24 10:09 Temperature 98.3 F Pulse Rate 77 85 85 Respiratory Rate 16 Blood Pressure 141/75 H Pulse Oximetry 97 Oxygen Delivery 02/11/24 10:15 02/11/24 12:00 02/11/24 08:00 Temperature 97.5 F L Pulse Rate 67 85 Respiratory Rate 18 Blood Pressure 121/66 Pulse Oximetry 98 Oxygen Delivery Room Air 02/11/24 12:00 Temperature Pulse Rate 77 Respiratory Rate Blood Pressure Pulse Oximetry Oxygen Delivery Intake/Output Intake/Output: Intake & Output 02/08/24 02/09/24 02/10/24 02/11/24 23:59 23:59 23:59 23:59 Intake Total 1320 930 943 730 Output Total 5900 800 1240 500 Balance -4580 130 -297 230 Meds/Results Medications: Active Medications Generic Name Dose Route Start Last Admin Trade Name Freq PRN Reason Stop Dose Admin Carvedilol 6.25 mg 02/09/24 09:00 02/11/24 10:09 Carvedilol 6.25 Mg Tablet PO 6.25 mg DAILY HCERIE Administration Dextrose 12.5 gm 02/08/24 15:11 Dextrose 50% 25 Gm/50 Ml Syringe IV PUSH PRN PRN Hypoglycemia Protocol Ferrous Sulfate 325 mg 02/11/24 13:00 Ferrous Sulfate [address] PO BID@1300,1700 CHERIE Furosemide 40 mg 02/09/24 09:00 02/11/24 10:09 Furosemide 40 Mg Tablet PO 40 mg DAILY CHERIE Administration Glucagon 1 mg 02/08/24 15:11 Glucagon For Inj 1 Mg Vial IM PRN PRN Hypoglycemia Protocol Glucose 15 gm 02/08/24 15:11 Glucose Oral Gel 15 Gm Of Glucse In 37.5 Gm Tube PO PRN PRN Hypoglycemia Protocol Dextrose 1,000 mls @ 100 mls/hr 02/08/24 15:11 Dextrose 5% 1,000 Ml IVPB PRN PRN Hypoglycemia Protocol Ceftriaxone Sodium 2 gm in 100 mls @ 200 mls/hr 02/11/24 14:00 Rocephin 2 Gm/Ns 100 Ml IVPB 02/12/24 14:29 Q24H CHERIE Insulin Aspart 2 - 5 units 02/08/24 17:00 02/11/24 12:24 Insulin Aspart (*Bkc) 100 Units/Ml SUB-Q Not Given TIDWM [facility] Protocol Insulin Glargine 10 units 02/10/24 21:00 02/10/24 20:11 Insulin Glargine (*Bkc) 100 Units/Ml SUB-Q 10 units HS CHERIE Administration Spironolactone 100 mg 10
[2024-02-11] MEDS: cefTRIAXone 2 GM/NS 100 ML 2 GM/100 ML BAG IVPB (14:11)
[2024-02-11 17:07] LABS: Glucose Point of Care 219 mg/dl (65-105)
[2024-02-11] MEDS: INSULIN ASPART (*BKC) 100 UNITS/ML SUB-Q (17:56)
[2024-02-11] MEDS: INSULIN GLARGINE (*BKC) 100 UNITS/ML 10 UNITS SUB-Q (20:48)
[2024-02-11 21:00] LABS: Glucose Point of Care 257 mg/dl (65-105)
[2024-02-12] VITALS (11 sets, daily range): BP systolic 114–150; BP diastolic 63–83; PULSE 81–95; RESP 16–18; TEMP 36.4–37.2; O2SAT 95–98
[2024-02-12 05:33] LABS: Hematocrit 37.3 % (42.0-52.0); Hemoglobin 11.9 g/dL (14.0-18.0); Immature Platelet Fraction Pct 4.2 % (0.9-11.2); Mean Corpuscular HGB Conc 31.9 g/dl (32-36); Mean Corpuscular Hemoglobin 23.2 pg (26-34); Mean Corpuscular Volume 72.7 fl (80-100); Mean Platelet Volume 11.9 fl (7.4-10.4); Platelet Count Result 218 k/mm3 (150-375); Red Blood Count 5.13 M/mm3 (4.6-6.20); Red Cell Distribution Width 18.3 % (11.5-14.5); White Blood Count 7.9 K/mm3 (4.5-10.0)
[2024-02-12 05:44] LABS: Anion Gap 7 mmol/L (4-12); Blood Urea Nitrogen 14 mg/dL (9-20); Calcium 7.9 mg/dL (8.4-10.2); Carbon Dioxide 28 mmol/L (22-30); Chloride 96 mmol/L (98-107); Estimated CRCL calculation 135 ml/min; Estimated Glomerular Filt Rate > 60; Glucose 179 mg/dL (65-110); Iron 26 ug/dL (49-181); Potassium 3.6 mmol/L (3.4-5.0); Sodium 131 mmol/L (137-145)
[2024-02-12 05:53] LABS: Percent Iron Saturation 12 % (20-50)
--- NOTE | 2024-02-12 07:53 | PM.IMPN ---
Progress Note: A&P Assessment and Plan (1) Spontaneous bacterial peritonitis: Code(s): K65.2 - Spontaneous bacterial peritonitis Status: Acute Assessment and Plan: - LFTs WNL on admission, now slight elevated with tot bili 1.5, AST 40, ALT 53, alk phos 162 - Abdomen/pelvis CT: Liver cirrhosis , gross ascites, thrombus in the splenic vein, splenomegaly, varicosities in the lower esophagus. - Antibiotics: Rocephin started on 02/07 - Diet: clear liquid with low Na, NPO at midnight for EGD - GI consulted s/p paracentesis on 02/07 with 5L removed evidence of spontaneous bacterial peritonitis (more than 1200 PMNs per mm3) started on albumin 1.5 grams/kilogram today (100 g) and 1 gram/kilogram on day 3 (80 g) started spironolactone 100 mg and lasix 40 mg daily changed propranolol to carvedilol 6.25 mg daily plan for EGD tomorrow to evaluate varices doppler sonogram of the liver ordered to rule out portal vein thrombosis given that CT showed evidence of splenic vein thrombosis - gi is following- EGD 02/08- grade 2 distal esophageal varices with no bleeding or signs of imminent bleeding -on ceftriaxone 1 gm- continue- pending peritoneal fluids studies 02/10- de escalated to PO antibiotics 02/11- switched back to IV Rocephin per guidelines to complete 5 days of therapy- antimicrobial management per GI based culture results, clinical status and guidelines Afebrile, no acute complains, BP stable- 114/75. wbc 7.9 (2) Ascites: Code(s): R18.8 - Other ascites Status: Acute Assessment and Plan: - LFTs WNL on admission, now slight elevated with tot bili 1.5, AST 40, ALT 53, alk phos 162 - Chest XR: No acute cardiopulmonary pathology. - Abdomen/pelvis CT: Liver cirrhosis , gross ascites, thrombus in the splenic vein, splenomegaly, varicosities in the lower esophagus. See plan for spontaneous bacterial peritonitis #1 (3) Cirrhosis: Qualifiers: Ascites presence: with ascites Hepatic cirrhosis type: unspecified hepatic cirrhosis Qualified Code(s): K74.60 - Unspecified cirrhosis of liver; R18.8 - Other ascites Code(s): K74.60 - Unspecified cirrhosis of liver Status: Acute Assessment and Plan: Chronic. See plan for spontaneous bacterial peritonitis #1 (4) Splenic vein thrombosis: Code(s): I82.890 - Acute embolism and thrombosis of other specified veins Status: Acute Assessment and Plan: See plan for spontaneous bacterial peritonitis #1 (5) Elevated LFTs: Code(s): R79.89 - Other specified abnormal findings of blood chemistry Status: Acute Assessment and Plan: - LFTs WNL on admission, now slight elevated with tot bili 1.5, AST 40, ALT 53, alk phos 162 See plan for spontaneous bacterial peritonitis #1 (6) Hypertension: Code(s): I10 - Essential (primary) hypertension Status: Acute Assessment and Plan: Chronic, continue home medications. coreg 6.25 mg daily - reviewed- -stable - continue (7) Type 2 diabetes mellitus: Code(s): E11.9 - Type 2 diabetes mellitus without complications Status: Acute Assessment and Plan: - hypoglycemia protocol - POC blood glucose ACHS - home medication - Ozempic, however this was recently denied by insurance - correct regimen ordered - low dose TIDWM - A1C ordered- 7.1 - will be able to restart semaglutide once discharged- discussed (8) Iron deficiency anemia: Qualifiers: Iron deficiency anemia type: unspecified iron deficiency Qualified Code(s): D50.9 - Iron deficiency anemia, unspecified Code(s): D50.9 - Iron deficiency anemia, unspecified Status: Acute Assessment and Plan: H/H 11.3/36 on admission appears at baseline with Iron 34, TIBC 394, % sat 9, Ferritin 12. - No signs of active bleeding. Denying hematochezia, hematemesis, melena and hematuria. - Started on iron supplementation - will add IV iron - will need a close
[2024-02-12 08:00] LABS: Glucose Point of Care 202 mg/dl (65-105)
--- NOTE | 2024-02-12 08:13 | WPDGIPROGNO ---
Progress Note: A&P Assessment and Plan (1) Spontaneous bacterial peritonitis: Code(s): K65.2 - Spontaneous bacterial peritonitis Status: Acute (2) Ascites: Code(s): R18.8 - Other ascites Status: Acute (3) Esophageal varices determined by endoscopy: Code(s): I85.00 - Esophageal varices without bleeding Status: Acute (4) Cirrhosis: Code(s): K74.60 - Unspecified cirrhosis of liver Status: Acute (5) Type 2 diabetes mellitus: Code(s): E11.9 - Type 2 diabetes mellitus without complications Status: Acute Plan The patient's furosemide dose was increased yesterday to 60 mg once a day. His total urine output in 24 h is 700 cc. His blood pressure is still adequate His creatinine today is 0.6 mg/dL and tolerates low-dose carvedilol and increased furosemide dose. Will increase spironolactone dose to 150 mg q.d.. patient is continuing to receive ceftriaxone 1 g Q 24 hours for spontaneous bacterial peritonitis. The option of liver transplantation was discussed with the patient and he is agreeable. Will continue to make coordinations at discharge, possibly early next week. Time Spent With Patient Time with patient: 15 - 25 minutes Subjective Date/time seen: 02/12/24 08:13 Interval history: The patient had a good night. No abdominal pain or fever. Review of Systems Review of Systems: All systems reviewed & are unremarkable except as noted in HPI and below Exam Narrative: No changes compared to yesterday. Const: General: comfortable and no acute distress Objective Data Vital Signs Vital Signs: Vital Signs - 24 hr 02/11/24 10:09 02/11/24 10:15 02/11/24 12:00 Temperature 97.5 F L Pulse Rate 85 67 Respiratory Rate 18 Blood Pressure 121/66 Pulse Oximetry 98 Oxygen Delivery Room Air 02/11/24 12:00 02/11/24 16:00 02/11/24 16:00 Temperature 97.3 F L Pulse Rate 77 69 79 Respiratory Rate 18 Blood Pressure 134/68 Pulse Oximetry 99 Oxygen Delivery 02/11/24 20:25 02/11/24 20:00 02/11/24 20:00 Temperature 97.7 F Pulse Rate 86 87 Respiratory Rate 14 Blood Pressure 134/64 Pulse Oximetry 98 Oxygen Delivery Room Air 02/11/24 23:47 02/12/24 00:00 02/12/24 04:00 Temperature 97.6 F Pulse Rate 81 81 82 Respiratory Rate 14 Blood Pressure 138/76 Pulse Oximetry 97 Oxygen Delivery 02/12/24 04:47 Temperature 97.5 F L Pulse Rate 90 Respiratory Rate 16 Blood Pressure 114/75 Pulse Oximetry 95 Oxygen Delivery Intake/Output Intake/Output: Intake & Output 02/09/24 02/10/24 02/11/24 02/12/24 23:59 23:59 23:59 23:59 Intake Total 467 774 3157 400 Output Total 800 1240 700 700 Balance 130 -297 670 -300 Meds/Results Medications: Active Medications Generic Name Dose Route Start Last Admin Trade Name Freq PRN Reason Stop Dose Admin Carvedilol 6.25 mg 02/09/24 09:00 02/11/24 10:09 Carvedilol 6.25 Mg Tablet PO 6.25 mg DAILY CHERIE Administration Dextrose 12.5 gm 02/08/24 15:11 Dextrose 50% 25 Gm/50 Ml Syringe IV PUSH PRN PRN Hypoglycemia Protocol Ferrous Sulfate 325 mg 02/11/24 13:00 02/11/24 17:56 Ferrous Sulfate [address] PO 325 mg BID@1300,1700 CHERIE Administration Furosemide 60 mg 02/12/24 09:00 Furosemide 20 Mg Tablet PO DAILY CHERIE Glucagon 1 mg 02/08/24 15:11 Glucagon For Inj 1 Mg Vial IM PRN PRN Hypoglycemia Protocol Glucose 15 gm 02/08/24 15:11 Glucose Oral Gel 15 Gm Of Glucse In 37.5 Gm Tube PO PRN PRN Hypoglycemia Protocol Dextrose 1,000 mls @ 100 mls/hr 02/08/24 15:11 Dextrose 5% 1,000 Ml IVPB PRN PRN Hypoglycemia Protocol Ceftriaxone Sodium 2 gm in 100 mls @ 200 mls/hr 02/11/24 14:00 02/11/24 14:45 Rocephin 2 Gm/Ns 100 Ml IVPB 02/12/24 14:29 Infused Q24H CHERIE Infusion Insulin Aspart 2 - 5 units 02/08/24 17:00 02/11/24 17:56
[2024-02-12] MEDS: IRON SUCROSE COMPLEX 100 MG in SODIUM CHLORIDE 0.9% IV 50 ML 220 MG IVPB (09:09)
[2024-02-12] MEDS: carvediloL 6.25 MG TABLET PO (09:09)
[2024-02-12] MEDS: FUROSEMIDE 20 MG TABLET 60 MG PO (09:09)
[2024-02-12] MEDS: INSULIN ASPART (*BKC) 100 UNITS/ML SUB-Q ×3 (09:10→17:43)
[2024-02-12] MEDS: SPIRONOLACTONE 50 MG TABLET 150 MG PO (09:12)
[2024-02-12 11:46] LABS: Glucose Point of Care 234 mg/dl (65-105)
[2024-02-12] MEDS: FERROUS SULFATE 325 MG TABLET DR PO ×2 (12:55→17:43)
[2024-02-12] MEDS: TAMSULOSIN HCL 0.4 MG CAPSULE PO (12:55)
[2024-02-12] MEDS: cefTRIAXone 2 GM/NS 100 ML 2 GM/100 ML BAG IVPB (15:18)
[2024-02-12 16:46] LABS: Glucose Point of Care 249 mg/dl (65-105)
[2024-02-12] MEDS: INSULIN GLARGINE (*BKC) 100 UNITS/ML 10 UNITS SUB-Q (19:55)
[2024-02-13] VITALS (12 sets, daily range): BP systolic 124–147; BP diastolic 74–83; PULSE 77–106; RESP 16; TEMP 36.5–36.8; O2SAT 96–99
[2024-02-13 00:06] LABS: Glucose Point of Care 240 mg/dl (65-105)
[2024-02-13 05:55] LABS: Hematocrit 36.4 % (42.0-52.0); Hemoglobin 11.8 g/dL (14.0-18.0); Immature Platelet Fraction Pct 4.9 % (0.9-11.2); Mean Corpuscular HGB Conc 32.4 g/dl (32-36); Mean Corpuscular Hemoglobin 23.7 pg (26-34); Mean Corpuscular Volume 73.1 fl (80-100); Mean Platelet Volume 11.3 fl (7.4-10.4); Platelet Count Result 177 k/mm3 (150-375); Red Blood Count 4.98 M/mm3 (4.6-6.20); Red Cell Distribution Width 18.4 % (11.5-14.5); White Blood Count 7.8 K/mm3 (4.5-10.0)
[2024-02-13 06:08] LABS: Anion Gap 8 mmol/L (4-12); Blood Urea Nitrogen 14 mg/dL (9-20); Carbon Dioxide 26 mmol/L (22-30); Chloride 95 mmol/L (98-107); Estimated CRCL calculation 134 ml/min; Estimated Glomerular Filt Rate > 60; Glucose 234 mg/dL (65-110); Potassium 4.3 mmol/L (3.4-5.0); Sodium 129 mmol/L (137-145)
--- NOTE | 2024-02-13 07:38 | PM.IMPN ---
Progress Note: A&P Assessment and Plan (1) Spontaneous bacterial peritonitis: Code(s): K65.2 - Spontaneous bacterial peritonitis Status: Acute Assessment and Plan: - LFTs WNL on admission, now slight elevated with tot bili 1.5, AST 40, ALT 53, alk phos 162 - Abdomen/pelvis CT: Liver cirrhosis , gross ascites, thrombus in the splenic vein, splenomegaly, varicosities in the lower esophagus. - Antibiotics: Rocephin started on 02/07 - Diet: clear liquid with low Na, NPO at midnight for EGD - GI consulted s/p paracentesis on 02/07 with 5L removed evidence of spontaneous bacterial peritonitis (more than 1200 PMNs per mm3) started on albumin 1.5 grams/kilogram today (100 g) and 1 gram/kilogram on day 3 (80 g) started spironolactone 100 mg and lasix 40 mg daily changed propranolol to carvedilol 6.25 mg daily plan for EGD tomorrow to evaluate varices doppler sonogram of the liver ordered to rule out portal vein thrombosis given that CT showed evidence of splenic vein thrombosis - gi is following- EGD 02/08- grade 2 distal esophageal varices with no bleeding or signs of imminent bleeding -on ceftriaxone 1 gm- continue- pending peritoneal fluids studies 02/10- de escalated to PO antibiotics 02/11- switched back to IV Rocephin per guidelines to complete 5 days of therapy- antimicrobial management per GI based culture results, clinical status and guidelines Afebrile, no acute complains, BP stable- 114/75. wbc 7.9 02/12- IV antibiotics are completed- all 5 days of Rocephin received with no missing doses- clarified with Madhavi box- further management per GI (2) Ascites: Code(s): R18.8 - Other ascites Status: Acute Assessment and Plan: - LFTs WNL on admission, now slight elevated with tot bili 1.5, AST 40, ALT 53, alk phos 162 - Chest XR: No acute cardiopulmonary pathology. - Abdomen/pelvis CT: Liver cirrhosis , gross ascites, thrombus in the splenic vein, splenomegaly, varicosities in the lower esophagus. See plan for spontaneous bacterial peritonitis #1 (3) Cirrhosis: Qualifiers: Ascites presence: with ascites Hepatic cirrhosis type: unspecified hepatic cirrhosis Qualified Code(s): K74.60 - Unspecified cirrhosis of liver; R18.8 - Other ascites Code(s): K74.60 - Unspecified cirrhosis of liver Status: Acute Assessment and Plan: Chronic. See plan for spontaneous bacterial peritonitis #1 (4) Splenic vein thrombosis: Code(s): I82.890 - Acute embolism and thrombosis of other specified veins Status: Acute Assessment and Plan: See plan for spontaneous bacterial peritonitis #1 (5) Elevated LFTs: Code(s): R79.89 - Other specified abnormal findings of blood chemistry Status: Acute Assessment and Plan: - LFTs WNL on admission, now slight elevated with tot bili 1.5, AST 40, ALT 53, alk phos 162 See plan for spontaneous bacterial peritonitis #1 (6) Hypertension: Code(s): I10 - Essential (primary) hypertension Status: Acute Assessment and Plan: Chronic, continue home medications. coreg 6.25 mg daily - reviewed- -stable - continue (7) Type 2 diabetes mellitus: Code(s): E11.9 - Type 2 diabetes mellitus without complications Status: Acute Assessment and Plan: - hypoglycemia protocol - POC blood glucose ACHS - home medication - Ozempic, however this was recently denied by insurance - correct regimen ordered - low dose TIDWM - A1C ordered- 7.1 - will be able to restart semaglutide once discharged- discussed (8) Iron deficiency anemia: Qualifiers: Iron deficiency anemia type: unspecified iron deficiency Qualified Code(s): D50.9 - Iron deficiency anemia, unspecified Code(s): D50.9 - Iron deficiency anemia, unspecified Status: Acute Assessment and Plan: H/H 11.3/36 on admission appears at baseline with Iron 34, TIBC 394, % sat 9, Ferritin 12. - No signs of
[2024-02-13 08:06] LABS: Glucose Point of Care 219 mg/dl (65-105)
[2024-02-13] MEDS: TAMSULOSIN HCL 0.4 MG CAPSULE PO (08:20)
[2024-02-13] MEDS: carvediloL 6.25 MG TABLET PO (08:20)
[2024-02-13] MEDS: FUROSEMIDE 20 MG TABLET 60 MG PO (08:21)
[2024-02-13] MEDS: INSULIN ASPART (*BKC) 100 UNITS/ML SUB-Q ×3 (08:22→19:08)
[2024-02-13] MEDS: SPIRONOLACTONE 50 MG TABLET 150 MG PO (08:29)
--- NOTE | 2024-02-13 09:43 | WPDGIPROGNO ---
Progress Note: A&P Assessment and Plan (1) Spontaneous bacterial peritonitis: Code(s): K65.2 - Spontaneous bacterial peritonitis Status: Acute (2) Cirrhosis: Qualifiers: Ascites presence: with ascites Hepatic cirrhosis type: unspecified hepatic cirrhosis Qualified Code(s): K74.60 - Unspecified cirrhosis of liver; R18.8 - Other ascites Code(s): K74.60 - Unspecified cirrhosis of liver Status: Acute (3) Ascites: Code(s): R18.8 - Other ascites Status: Acute Assessment and Plan: Patient continues to accumulate ascitic fluid, despite increased diuretic dose by 50% on both diuretics. His urinary output is not as expected, fortunately his creatinine has not changed (still 0.6). Large volume parecentesis requested for tomorrow, to remove as much ascites as possible and will replace albumin right after paracentesis, 8 g per liter removed at arrival to the floor. 50% STAT and 50% 6 h later. Since Ceftriaxone was discontinued on 02/08 and 02/09, it was restarted on and . Therefore, I will continue to administer it three more days counting today. Plan as above Subjective Date/time seen: 02/13/24 09:43 Interval history: The patient feels that he is not urinating enough and the abdomen feels more tense Exam Narrative: Tense ascites es more evident than the day before Objective Data Vital Signs Vital Signs: Vital Signs - 24 hr 02/12/24 14:16 02/12/24 12:00 02/12/24 16:00 Temperature 98.9 F Pulse Rate 86 92 90 Respiratory Rate 16 Blood Pressure 121/63 Pulse Oximetry 97 Oxygen Delivery 02/12/24 18:22 02/12/24 20:12 02/12/24 20:00 Temperature 98.9 F 98.4 F Pulse Rate 87 93 91 Respiratory Rate 16 18 Blood Pressure 129/73 129/83 Pulse Oximetry 96 97 Oxygen Delivery 02/12/24 20:00 02/13/24 00:00 02/13/24 01:02 Temperature 97.8 F Pulse Rate 86 85 Respiratory Rate 16 Blood Pressure 127/74 Pulse Oximetry 99 Oxygen Delivery Room Air 02/13/24 04:00 02/13/24 05:06 02/13/24 08:20 Temperature 98.0 F Pulse Rate 106 H 77 77 Respiratory Rate 16 Blood Pressure 129/81 Pulse Oximetry 98 Oxygen Delivery Intake/Output Intake/Output: Intake & Output 02/10/24 02/11/24 02/12/24 02/13/24 23:59 23:59 23:59 23:59 Intake Total 943 1370 1650 450 Output Total 1373 313 1090 600 Balance -297 670 350 -150 Meds/Results Medications: Active Medications Generic Name Dose Route Start Last Admin Trade Name Freq PRN Reason Stop Dose Admin Carvedilol 6.25 mg 02/09/24 09:00 02/13/24 08:20 Carvedilol 6.25 Mg Tablet PO 6.25 mg DAILY CHERIE Administration Dextrose 12.5 gm 02/08/24 15:11 Dextrose 50% 25 Gm/50 Ml Syringe IV PUSH PRN PRN Hypoglycemia Protocol Ferrous Sulfate 325 mg 02/11/24 13:00 02/12/24 17:43 Ferrous Sulfate [address] PO 325 mg BID@1300,1700 CHERIE Administration Furosemide 60 mg 02/12/24 09:00 02/13/24 08:21 Furosemide 20 Mg Tablet PO 60 mg DAILY CHERIE Administration Glucagon 1 mg 02/08/24 15:11 Glucagon For Inj 1 Mg Vial IM PRN PRN Hypoglycemia Protocol Glucose 15 gm 02/08/24 15:11 Glucose Oral Gel 15 Gm Of Glucse In 37.5 Gm Tube PO PRN PRN Hypoglycemia Protocol Dextrose 1,000 mls @ 100 mls/hr 02/08/24 15:11 Dextrose 5% 1,000 Ml IVPB PRN PRN Hypoglycemia Protocol Insulin Aspart 2 - 5 units 02/08/24 17:00 02/13/24 08:22 Insulin Aspart (*Bkc) 100 Units/Ml SUB-Q 2 units TIDWM CHERIE Administration Protocol Insulin Glargine 10 units 02/10/24 21:00 02/12/24 19:55 Insulin Glargine (*Bkc) 100 Units/Ml SUB-Q 10 units HS CHERIE Administration Spironolactone 150 mg 02/12/24 09:00 02/13/24 08:29 Spironolactone 50 Mg Tablet PO 150 mg QAM CHERIE Administration Tamsulosin HCl 0.4 mg 02/12/24 12:15 02/13/24 08:20 Tamsulosin Hcl 0.4 Mg Capsule PO
[2024-02-13 12:00] LABS: Glucose Point of Care 208 mg/dl (65-105)
[2024-02-13] MEDS: FERROUS SULFATE 325 MG TABLET DR PO ×2 (12:40→19:08)
[2024-02-13 17:18] LABS: Glucose Point of Care 277 mg/dl (65-105)
[2024-02-13 19:14] LABS: Glucose Point of Care 222 mg/dl (65-105)
[2024-02-13] MEDS: INSULIN GLARGINE (*BKC) 100 UNITS/ML 10 UNITS SUB-Q (20:58)
[2024-02-13 21:53] LABS: Glucose Point of Care 199 mg/dl (65-105)
[2024-02-14] VITALS (14 sets, daily range): BP systolic 115–147; BP diastolic 64–87; PULSE 81–110; RESP 14–18; TEMP 35.8–36.9; O2SAT 96–100
[2024-02-14 07:10] LABS: Hemoglobin 11.7 g/dL (14.0-18.0); Mean Corpuscular HGB Conc 32.5 g/dl (32-36); Mean Corpuscular Hemoglobin 23.6 pg (26-34); Mean Corpuscular Volume 72.6 fl (80-100); Mean Platelet Volume 10.9 fl (7.4-10.4); Platelet Count Result 211 k/mm3 (150-375); Red Blood Count 4.96 M/mm3 (4.6-6.20); Red Cell Distribution Width 18.8 % (11.5-14.5); White Blood Count 7.2 K/mm3 (4.5-10.0)
--- NOTE | 2024-02-14 07:13 | PM.IMPN ---
Progress Note: A&P Assessment and Plan (1) Spontaneous bacterial peritonitis: Code(s): K65.2 - Spontaneous bacterial peritonitis Status: Acute Assessment and Plan: - LFTs WNL on admission, now slight elevated with tot bili 1.5, AST 40, ALT 53, alk phos 162 - Abdomen/pelvis CT: Liver cirrhosis , gross ascites, thrombus in the splenic vein, splenomegaly, varicosities in the lower esophagus. - Antibiotics: Rocephin started on 02/07 - Diet: clear liquid with low Na, NPO at midnight for EGD - GI consulted s/p paracentesis on 02/07 with 5L removed evidence of spontaneous bacterial peritonitis (more than 1200 PMNs per mm3) started on albumin 1.5 grams/kilogram today (100 g) and 1 gram/kilogram on day 3 (80 g) started spironolactone 100 mg and lasix 40 mg daily changed propranolol to carvedilol 6.25 mg daily plan for EGD tomorrow to evaluate varices doppler sonogram of the liver ordered to rule out portal vein thrombosis given that CT showed evidence of splenic vein thrombosis - gi is following- EGD 02/08- grade 2 distal esophageal varices with no bleeding or signs of imminent bleeding -on ceftriaxone 1 gm- continue- pending peritoneal fluids studies 02/10- de escalated to PO antibiotics 02/11- switched back to IV Rocephin per guidelines to complete 5 days of therapy- antimicrobial management per GI based culture results, clinical status and guidelines Afebrile, no acute complains, BP stable- 114/75. wbc 7.9 02/12- IV antibiotics are completed- all 5 days of Rocephin received with no missing doses- clarified with Madhavi box- further management per GI 02/13 Large volume parecentesis today, replace albumin right after paracentesis, 8 g per liter removed at arrival to the floor. 50% STAT and 50% 6 h later. Albumin ordered per GI already (2) Ascites: Code(s): R18.8 - Other ascites Status: Acute Assessment and Plan: - LFTs WNL on admission, now slight elevated with tot bili 1.5, AST 40, ALT 53, alk phos 162 - Chest XR: No acute cardiopulmonary pathology. - Abdomen/pelvis CT: Liver cirrhosis , gross ascites, thrombus in the splenic vein, splenomegaly, varicosities in the lower esophagus. See plan for spontaneous bacterial peritonitis #1 (3) Cirrhosis: Qualifiers: Ascites presence: with ascites Hepatic cirrhosis type: unspecified hepatic cirrhosis Qualified Code(s): K74.60 - Unspecified cirrhosis of liver; R18.8 - Other ascites Code(s): K74.60 - Unspecified cirrhosis of liver Status: Acute Assessment and Plan: Chronic. See plan for spontaneous bacterial peritonitis #1 (4) Splenic vein thrombosis: Code(s): I82.890 - Acute embolism and thrombosis of other specified veins Status: Acute Assessment and Plan: See plan for spontaneous bacterial peritonitis #1 (5) Elevated LFTs: Code(s): R79.89 - Other specified abnormal findings of blood chemistry Status: Acute Assessment and Plan: - LFTs WNL on admission, now slight elevated with tot bili 1.5, AST 40, ALT 53, alk phos 162 See plan for spontaneous bacterial peritonitis #1 (6) Hypertension: Code(s): I10 - Essential (primary) hypertension Status: Acute Assessment and Plan: Chronic, continue home medications. coreg 6.25 mg daily - reviewed- -stable - continue (7) Type 2 diabetes mellitus: Code(s): E11.9 - Type 2 diabetes mellitus without complications Status: Acute Assessment and Plan: - hypoglycemia protocol - POC blood glucose ACHS - home medication - Ozempic, however this was recently denied by insurance - correct regimen ordered - low dose TIDWM - A1C ordered- 7.1 - will be able to restart semaglutide once discharged- discussed (8) Iron deficiency anemia: Qualifiers: Iron deficiency anemia type: unspecified iron deficiency Qualified Code(s): D50.9 - Iron deficiency anemia, unspecified Code(s): D50.9 - Iron
[2024-02-14 07:21] LABS: Anion Gap 4 mmol/L (4-12); Blood Urea Nitrogen 13 mg/dL (9-20); Carbon Dioxide 30 mmol/L (22-30); Chloride 95 mmol/L (98-107); Estimated CRCL calculation 135 ml/min; Estimated Glomerular Filt Rate > 60; Glucose 189 mg/dL (65-110); Potassium 4.5 mmol/L (3.4-5.0); Sodium 129 mmol/L (137-145)
[2024-02-14 08:03] LABS: Glucose Point of Care 190 mg/dl (65-105)
[2024-02-14] MEDS: SODIUM CHLORIDE 1 GM TABLET PO ×2 (08:04→16:33)
[2024-02-14] MEDS: carvediloL 6.25 MG TABLET PO (08:04)
[2024-02-14] MEDS: SPIRONOLACTONE 50 MG TABLET 150 MG PO (08:04)
[2024-02-14] MEDS: FUROSEMIDE 20 MG TABLET 60 MG PO (08:04)
[2024-02-14] MEDS: TAMSULOSIN HCL 0.4 MG CAPSULE PO (08:05)
[2024-02-14 09:08] LABS: Mean Platelet Volume 10.2 fl (7.4-10.4); Platelet Count Result 267 k/mm3 (150-375)
[2024-02-14 09:20] LABS: INR 1.5; Prothrombin Time 18.2 Seconds (11.1-14.7)
[2024-02-14 11:52] LABS: Glucose Point of Care 191 mg/dl (65-105)
[2024-02-14] MEDS: FERROUS SULFATE 325 MG TABLET DR PO ×2 (12:12→16:33)
[2024-02-14] MEDS: ALBUMIN HUMAN 25% 25 GM/100 ML 100 ML IVPB ×2 (13:54→20:12)
--- NOTE | 2024-02-14 15:45 | WPDGIPROGNO ---
Progress Note: A&P Assessment and Plan (1) Spontaneous bacterial peritonitis: Code(s): K65.2 - Spontaneous bacterial peritonitis Status: Acute (2) Cirrhosis: Qualifiers: Ascites presence: with ascites Hepatic cirrhosis type: unspecified hepatic cirrhosis Qualified Code(s): K74.60 - Unspecified cirrhosis of liver; R18.8 - Other ascites Code(s): K74.60 - Unspecified cirrhosis of liver Status: Acute (3) Ascites: Code(s): R18.8 - Other ascites Status: Acute (4) Esophageal varices determined by endoscopy: Code(s): I85.00 - Esophageal varices without bleeding Status: Acute Plan Patient with advanced cirrhosis secondary to steatotic liver disease, complicated with ascites and superimposed spontaneous bacterial peritonitis. He completed 5 days of ceftriaxone 1 g b.i.d., along with albumin 100 g IV on day 1 and 80 mg IV on day 3. In addition, his urine output increased, yesterday 1650 mL. He can be discharged tomorrow, with the following modified diuretic doses: Spironolactone 100 mg once a day in the morning, together with furosemide 40 mg once daily. Fortunately, his creatinine level has remained stable (0.6) despite increased diuretic doses in the past 48 hours, but will go back to the original doses (Spironolactone/Lasix 100/40 mg) to avoid precipitating acute kidney failure. He already received 25 g of albumin and is due to receive another 25 g tonight, according to the recommendations for patients undergoing large volume paracentesis. In this case, 5 L of ascitic were tapped earlier this morning. In addition, he will continue to receive carvedilol 6.25 mg once a day for variceal bleeding prophylaxis. I should see him for follow-up in 2 weeks with the same medication regimen described above, and will make arrangements to refer him for liver transplantation. Time Spent With Patient Time with patient: 15 - 25 minutes Subjective Date/time seen: 02/14/24 15:45 Interval history: the patient feels much better after over 5 L of ascitic fluid were removed this morning. There is no abdominal pain or fever. Exam Const: General: comfortable and no acute distress GI: Other: Soft, nontender, less distended than yesterday. Psych: Mental Status: mental status grossly normal Objective Data Vital Signs Vital Signs: Vital Signs - 24 hr 02/13/24 16:00 02/13/24 21:21 02/13/24 20:00 Temperature 97.7 F Pulse Rate 89 100 95 Respiratory Rate 16 Blood Pressure 147/83 H Pulse Oximetry 96 Oxygen Delivery 02/13/24 20:00 02/14/24 00:29 02/14/24 00:00 Temperature 97.8 F Pulse Rate 100 110 H Respiratory Rate 16 Blood Pressure 140/87 Pulse Oximetry 100 Oxygen Delivery Room Air 02/14/24 04:00 02/14/24 05:22 02/14/24 08:04 Temperature 98.0 F Pulse Rate 93 95 101 H Respiratory Rate 14 Blood Pressure 147/81 H Pulse Oximetry 98 Oxygen Delivery 02/14/24 08:00 02/14/24 08:05 02/14/24 08:03 Temperature 97.8 F Pulse Rate 88 92 Respiratory Rate 16 16 Blood Pressure 135/84 Pulse Oximetry 96 96 Oxygen Delivery Room Air 02/14/24 12:01 02/14/24 12:00 Temperature 96.4 F L Pulse Rate 81 84 Respiratory Rate 16 Blood Pressure 115/71 Pulse Oximetry 98 Oxygen Delivery Intake/Output Intake/Output: Intake & Output 02/11/24 02/12/24 02/13/24 02/14/24 23:59 23:59 23:59 23:59 Intake Total 1370 1650 1320 590 Output Total 700 1300 1450 6000 Balance 670 670 -759 -1898 Meds/Results Medications: Active Medications Generic Name Dose Route Start Last Admin Trade Name Freq PRN Reason Stop Dose Admin Carvedilol 6.25 mg 02/09/24 09:00 02/14/24 08:04 Carvedilol 6.25 Mg Tablet PO 6.25 mg DAILY CHERIE Administration Dextrose 12.5 gm 02/08/24 15:11 Dextrose 50% 25 Gm/50 Ml Syringe IV PUSH PRN PRN Hypoglycemia Protocol Ferrous Sulfate 325 mg 02/11/24 13:00 02/13
[2024-02-14 16:32] LABS: Glucose Point of Care 274 mg/dl (65-105)
[2024-02-14] MEDS: INSULIN ASPART (*BKC) 100 UNITS/ML SUB-Q (16:37)
[2024-02-14] MEDS: INSULIN GLARGINE (*BKC) 100 UNITS/ML 10 UNITS SUB-Q (20:14)
[2024-02-14 20:31] LABS: Glucose Point of Care 275 mg/dl (65-105)
[2024-02-15] VITALS: PULSE 102
[2024-02-15 03:39] VITALS: BP 147/69; PULSE 78; RESP 17; TEMP 36.9; O2SAT 97
[2024-02-15 04:00] VITALS: PULSE 72
[2024-02-15 05:36] LABS: Hematocrit 32.1 % (42.0-52.0); Hemoglobin 10.5 g/dL (14.0-18.0); Immature Platelet Fraction Pct 4.2 % (0.9-11.2); Mean Corpuscular HGB Conc 32.7 g/dl (32-36); Mean Corpuscular Hemoglobin 23.9 pg (26-34); Mean Platelet Volume 11.4 fl (7.4-10.4); Platelet Count Result 137 k/mm3 (150-375); Red Cell Distribution Width 18.4 % (11.5-14.5); White Blood Count 4.4 K/mm3 (4.5-10.0)
[2024-02-15 05:47] LABS: Anion Gap 5 mmol/L (4-12); Blood Urea Nitrogen 12 mg/dL (9-20); Calcium 7.9 mg/dL (8.4-10.2); Carbon Dioxide 27 mmol/L (22-30); Chloride 96 mmol/L (98-107); Estimated CRCL calculation 159 ml/min; Estimated Glomerular Filt Rate > 60; Glucose 173 mg/dL (65-110); Potassium 3.9 mmol/L (3.4-5.0); Sodium 128 mmol/L (137-145)
[2024-02-15 08:00] VITALS: BP 144/72; PULSE 72; PULSE 82; RESP 18; TEMP 36.1; O2SAT 98
[2024-02-15 08:45] LABS: Glucose Point of Care 187 mg/dl (65-105)
[2024-02-15] MEDS: FUROSEMIDE 20 MG TABLET 60 MG PO (09:30)
[2024-02-15 09:31] VITALS: PULSE 96
[2024-02-15] MEDS: SPIRONOLACTONE 50 MG TABLET 150 MG PO (09:31)
[2024-02-15] MEDS: SODIUM CHLORIDE 1 GM TABLET PO (09:31)
[2024-02-15] MEDS: carvediloL 6.25 MG TABLET PO (09:31)
[2024-02-15] MEDS: TAMSULOSIN HCL 0.4 MG CAPSULE PO (09:32)
--- NOTE | 2024-02-15 10:11 | PM.DS ---
DS: Admitting Diagnosis Discharge Date 02/15/2024 Admitting Diagnosis Cirrhosis with ascites and peritonitis DS: Discharge Diagnosis Discharge Diagnosis (1) Spontaneous bacterial peritonitis: Code(s): K65.2 - Spontaneous bacterial peritonitis Status: Acute (2) Ascites: Code(s): R18.8 - Other ascites Status: Acute (3) Cirrhosis: Qualifiers: Ascites presence: with ascites Hepatic cirrhosis type: unspecified hepatic cirrhosis Qualified Code(s): K74.60 - Unspecified cirrhosis of liver; R18.8 - Other ascites Code(s): K74.60 - Unspecified cirrhosis of liver Status: Acute (4) Splenic vein thrombosis: Code(s): I82.890 - Acute embolism and thrombosis of other specified veins Status: Acute (5) Elevated LFTs: Code(s): R79.89 - Other specified abnormal findings of blood chemistry Status: Acute (6) Hypertension: Code(s): I10 - Essential (primary) hypertension Status: Acute (7) Type 2 diabetes mellitus: Code(s): E11.9 - Type 2 diabetes mellitus without complications Status: Acute (8) Iron deficiency anemia: Qualifiers: Iron deficiency anemia type: unspecified iron deficiency Qualified Code(s): D50.9 - Iron deficiency anemia, unspecified Code(s): D50.9 - Iron deficiency anemia, unspecified Status: Acute Plan Disposition: Patient was discharged home DS: Summary Hospital Course Reason for hospitalization: Cirrhosis with ascites and peritonitis Hospital Course: Patient was a 63-year-old male who presented to the emergency department initially for severe abdominal pain and distension patient with recent history and diagnosis of cirrhosis of the liver with need for paracentesis. Patient had recent paracentesis 2 weeks prior to arrival at which time he had [address] ABD Liver cirrhosis , gross ascites, thrombus in the splenic vein, splenomegaly, varicosities in the lower esophagus. Patient was then admitted to the medical unit for further treatment of cirrhosis with ascites and need for paracentesis. GI was consulted for further recommendations and updates to treatment. Patient underwent initial paracentesis with 5 L removal in would appear to be peritonitis he was started Rocephin IV x5 days which was completed he underwent a 2nd paracentesis at which time they removed another 5 L patient received albumin post procedures and tolerated fluid removal. GI recommended transitioning patient to Spironolactone 100 mg once a day in the morning, together with furosemide 40 mg once daily, as well as low-sodium diet. Patient with some hyponatremia was placed on sodium tablets. Patient was also found to have esophageal variceal bleeding in place on low-dose carvedilol. Patient with overall improvement post paracentesis x2 in IV antibiotics. Patient was discharged home with medication adjustments in plan for follow-up with GI in 2 weeks patient was provided with orders for CBC and CMP requested to get prior to follow-up appointment with GI. Patient will likely need intermittent paracentesis GI will refer him for liver transplant at at a tertiary hospital. Status at Discharge Functional status at discharge: independent ambulation Overall status at discharge: patient is progressing back to baseline Time Spent with Patient Time attestation: Total time spent providing and/or coordinating discharge services: Time spent: Greater than 30 minutes Exam Narrative: Physical Exam: GENERAL: Alert and oriented x 3. No acute distress. EYES: EOMI. No scleral icterus. PERRLA. HEENT: Moist mucous membranes. LUNGS: Clear to auscultation bilaterally. No accessory muscle use. CARDIOVASCULAR: Regular rate and rhythm. No murmur. No JVD. S1-S2 ABDOMEN: Soft, non tenderness and non-distended. No palpable masses. EXTREMITIES: No edema. Non-tender SKIN: No rashes or lesions. Skin warm, dry. NEUROLOGIC: No focal
[2024-02-15 12:08] LABS: Glucose Point of Care 224 mg/dl (65-105)
== END 2024-02-15 12:49 | disposition home or self-care (01) | DRG 371 ==
LOC: ANHED 19:24 → ANH2MED 22:41
PROVIDERS: Emergency Medicine; Internal Medicine Gastroenterology; Nurse Practitioner; Nurse Practitioner Family; Radiology Diagnostic Radiology; Student in an Organized Health Care Education/Training Program; Admitting Provider Internal Medicine; Emergency Provider Physician Assistant; PCP Family Medicine; Visit Provider Nurse Practitioner Family
PROC: 0DJ08ZZ Inspection of Upper Intestinal Tract, Via Natural or Artificial Opening Endoscopic (ICD-10-PCS; CPT 43235; principal; 2024-02-09 10:30)
DX: K65.2 Spontaneous bacterial peritonitis (principal); I85.01 Esophageal varices with bleeding; E87.1 Hypo-osmolality and hyponatremia; I82.890 Acute embolism and thrombosis of other specified veins; R18.8 Other ascites; K76.6 Portal hypertension; K74.60 Unspecified cirrhosis of liver; K31.89 Other diseases of stomach and duodenum; K75.81 Nonalcoholic steatohepatitis (NASH); K31.7 Polyp of stomach and duodenum; R79.89 Other specified abnormal findings of blood chemistry; I10 Essential (primary) hypertension; E11.9 Type 2 diabetes mellitus without complications; D50.9 Iron deficiency anemia, unspecified; K21.9 Gastro-esophageal reflux disease without esophagitis; M19.90 Unspecified osteoarthritis, unspecified site; G47.33 Obstructive sleep apnea (adult) (pediatric); E66.9 Obesity, unspecified; Z68.31 Body mass index [BMI] 31.0-31.9, adult
CPT/HCPCS: 36415; 49083; 71046; 74177; 80048; 80053; 81001; 82040; 82042; 82105; 82140; 82948; 83036; 83540; 83550; 83605; 83690; 83880; 84157; 85025; 85027; 85049; 85055; 85610; 85730; 86850; 86900; 86901; 87070; 87075; 87205; 88108; 88305; 89051; 93005; 93976; 99285; A9270; G0378; J0696; J1756; J1815; J2003; J2704; J7120; P9047; Q9967

== ENCOUNTER 2024-02-21 14:33 | Emergency (ER) | payer BC, SELFPAY ==
[2024-02-21 14:35] VITALS: BP 132/94; PULSE 104; RESP 20; TEMP 36.6; O2SAT 98
[2024-02-21 16:11] LABS: Basophils Percent Auto 0.4 % (0.2-1.2); Eosinophils Absolute Auto 0.1 K/mm3 (0-0.3); Eosinophils Percent Auto 1.2 % (0-4.4); Hemoglobin 11.4 g/dL (14.0-18.0); Immature Granulocyte Absolute 0.01 K/mm3 (0.00-0.031); Immature Granulocyte Percent A 0.2 % (0-0.5); Lymphocytes Absolute Auto 0.55 K/mm3 (0.9-3.2); Lymphocytes Percent Auto 11.2 % (18.3-44.2); Mean Corpuscular HGB Conc 32.6 g/dl (32-36); Mean Corpuscular Hemoglobin 23.8 pg (26-34); Mean Corpuscular Volume 73.1 fl (80-100); Monocytes Absolute Auto 0.5 K/mm3 (0.1-0.6); Monocytes Percent Auto 10.8 % (2.6-8.5); Neutrophils Absolute Auto 3.7 K/mm3 (1.3-6.7); Neutrophils Percent Auto 76.2 % (45.5-73.1); Platelet Count Result 182 k/mm3 (150-375); Red Blood Count 4.79 M/mm3 (4.6-6.20); Red Cell Distribution Width 20.3 % (11.5-14.5); White Blood Count 4.9 K/mm3 (4.5-10.0)
[2024-02-21 16:24] LABS: INR 1.4; Prothrombin Time 17.5 Seconds (11.1-14.7)
[2024-02-21 16:25] LABS: Partial Thromboplastin Time 34.9 Seconds (22.3-36.8)
[2024-02-21 16:32] LABS: Alanine Aminotransferase 38 U/L (6-50); Albumin Level 3.1 g/dL (3.5-5.1); Alkaline Phosphatase 117 U/L (38-126); Anion Gap 7 mmol/L (4-12); Aspartate Amino Transferase 32 U/L (17-59); Bilirubin,Total 0.9 mg/dL (0.2-1.3); Blood Urea Nitrogen 12 mg/dL (9-20); Calcium 8.4 mg/dL (8.4-10.2); Carbon Dioxide 26 mmol/L (22-30); Chloride 94 mmol/L (98-107); Estimated CRCL calculation 119 ml/min; Estimated Glomerular Filt Rate > 60; Glucose 194 mg/dL (65-110); Lipase 60 U/L (23-300); Potassium 4.4 mmol/L (3.4-5.0); Sodium 127 mmol/L (137-145)
[2024-02-21 16:32] LABS: Lactic Acid Reflex 1.4 mmol/L (0.7-2.0)
[2024-02-21 16:36] LABS: Ovalocytes 2+; Platelet Estimate Adequate (Adequate)
[2024-02-21 16:37] LABS: Schistocytes None Seen
--- NOTE | 2024-02-21 17:06 | ED.GENADULT ---
HPI - General Adult General Chief complaint: Abdominal Pain Stated complaint: ascites Time Seen by Provider: 02/21/24 15:01 History of Present Illness HPI narrative: Patient is a 7-year-old male who presents ER with a distended abdomen. Has history of cirrhosis with abdominal ascites. He has recently been tapped and evaluated for SBP. He sees Dr. Diaz with GI. No fevers or chills. Reports increased discomfort in abdomen with mild dyspnea. Related Data Home Medications Medication Instructions Recorded Confirmed cetirizine 10 mg tablet (Zyrtec) 10 mg PO DAILY 12/01/21 02/09/24 pantoprazole 40 mg tablet,delayed 40 mg PO BID 02/07/24 02/09/24 release Allergies Allergy/AdvReac Type Severity Reaction Status Date / Time Penicillins Allergy Severe swelling Verified 02/11/24 13:27 Review of Systems Review of Systems: All systems reviewed & are unremarkable except as noted in HPI and below Constitutional: Constitutional: Reports no additional constitutional complaints Cardiovascular: Cardiovascular: Reports no additional cardiovascular complaints Respiratory: Respiratory: Reports no additional respiratory complaints Gastrointestinal: Gastrointestinal: Reports abdominal pain, Denies diarrhea, Denies nausea and Denies vomiting Musculoskeletal: Musculoskeletal: Reports no additional musculoskeletal complaints PMF Past Medical History Medical History (Updated 02/21/24 @ 18:27 by Jose Avery MD) Adenomatous colon polyp Anxiety Asthma Cirrhosis Depression Esophageal varices determined by endoscopy GERD (gastroesophageal reflux disease) Hypertension Hypothyroidism Iron deficiency anemia MARINA (obstructive sleep apnea) CPAP Pancytopenia Thrombocytopenia Type 2 diabetes mellitus Surgical History Surgical History (Updated 02/08/24 @ 14:55 by Melanie Marvin PA-C) History of hernia repair History of tonsillectomy and adenoidectomy Family History Family History Father Ulcer Emphysema lung Social History Social History (Updated 02/08/24 @ 14:55 by Melanie Marvin PA-C) Social History: Lives alone with his 2 cats. Smoking status: Never smoker Alcohol intake: never Substance use: never Substance use type: does not use Do You Feel Safe in your Home?: Yes Lack of Transportation: No Lack of Food: Never True Current Housing: I Have Housing Concerned About Future Housing: YES Difficulty Paying Gas/Electric Bills: YES Difficulty Paying for Meds: YES Currently Unemployed: No Education: High School Diploma/GED Difficulty w/ Childcare or Family Care: No Living arrangements: alone Occupation/Education: occupation Additional occupation/education comments: Working at [employer]. Gender identity (if verbalized by the patient): Male Spiritual care concerns: No Exam Narrative: GENERAL: Chronically ill-appearing, well-nourished, and in no acute distress. HEAD: Normocephalic, atraumatic. ENT: Mucous membranes moist. CHEST: Clear to auscultation. No respiratory distress. HEART: Regular rate and rhythm. Normal peripheral pulses. ABDOMEN: Soft, nontender, nondistended. EXTREMITIES: Normal range of motion. No edema. SKIN: Warm, dry, no rash. NEURO: Alert and oriented x3. PSYCH: Normal mood and affect. Course Course Emergency Course: Discussed with Dr. Diaz. Increase aldactone to 150mg and continues lasix 40mg. Vital Signs Vital signs: Vital Signs Temperature 97.9 F 02/21/24 14:35 Pulse Rate 104 H 02/21/24 14:35 Respiratory Rate 20 02/21/24 14:35 Blood Pressure 132/94 H 02/21/24 14:35 Pulse Oximetry 98 02/21/24 14:35 Oxygen Delivery Room Air 02/21/24 14:35 Temperature 97.9 F 02/21/24 14:35 Pulse Rate 104 H 02/21/24 14:35 Respiratory Rate 20 02/21/24 14:35 Blood Pressure 132/94 H 02/21/24 14:35 Pulse Oximetry 98 02/21/24 14:35 Oxygen Deliver
[2024-02-21 18:37] VITALS: BP 132/70; PULSE 74; RESP 18; TEMP 36.8; O2SAT 98
== END 2024-02-21 18:40 | disposition home or self-care (01) ==
PROVIDERS: Emergency Provider Emergency Medicine; PCP Family Medicine
DX: R18.8 Other ascites (principal); F41.9 Anxiety disorder, unspecified; J45.909 Unspecified asthma, uncomplicated; K74.60 Unspecified cirrhosis of liver; F32.A Depression, unspecified; K21.9 Gastro-esophageal reflux disease without esophagitis; I10 Essential (primary) hypertension; E03.9 Hypothyroidism, unspecified; D64.9 Anemia, unspecified; G47.30 Sleep apnea, unspecified; E11.9 Type 2 diabetes mellitus without complications
CPT/HCPCS: 36415; 80053; 83605; 83690; 85025; 85610; 85730; 99283

== ENCOUNTER 2024-02-29 10:52 | Outpatient (CLI) | payer BC, SELFPAY ==
[2024-02-29 11:24] LABS: Basophils Percent Auto 0.6 % (0.2-1.2); Eosinophils Absolute Auto 0.1 K/mm3 (0-0.3); Eosinophils Percent Auto 1.4 % (0-4.4); Hematocrit 35.9 % (42.0-52.0); Hemoglobin 11.6 g/dL (14.0-18.0); Immature Granulocyte Absolute 0.01 K/mm3 (0.00-0.031); Immature Granulocyte Percent A 0.3 % (0-0.5); Immature Platelet Fraction Pct 3.1 % (0.9-11.2); Lymphocytes Absolute Auto 0.55 K/mm3 (0.9-3.2); Lymphocytes Percent Auto 15.4 % (18.3-44.2); Mean Corpuscular HGB Conc 32.3 g/dl (32-36); Mean Corpuscular Hemoglobin 24.6 pg (26-34); Mean Corpuscular Volume 76.2 fl (80-100); Mean Platelet Volume 11.1 fl (7.4-10.4); Monocytes Absolute Auto 0.4 K/mm3 (0.1-0.6); Monocytes Percent Auto 10.9 % (2.6-8.5); Neutrophils Absolute Auto 2.6 K/mm3 (1.3-6.7); Neutrophils Percent Auto 71.4 % (45.5-73.1); Platelet Count Result 131 k/mm3 (150-375); Red Blood Count 4.71 M/mm3 (4.6-6.20); Red Cell Distribution Width 21.2 % (11.5-14.5); White Blood Count 3.6 K/mm3 (4.5-10.0)
[2024-02-29 11:32] LABS: Alanine Aminotransferase 32 U/L (6-50); Albumin Level 3.2 g/dL (3.5-5.1); Alkaline Phosphatase 101 U/L (38-126); Anion Gap 6 mmol/L (4-12); Aspartate Amino Transferase 31 U/L (17-59); Bilirubin,Total 1.1 mg/dL (0.2-1.3); Blood Urea Nitrogen 11 mg/dL (9-20); Calcium 8.3 mg/dL (8.4-10.2); Carbon Dioxide 29 mmol/L (22-30); Chloride 97 mmol/L (98-107); Estimated Glomerular Filt Rate > 60; Glucose 166 mg/dL (65-110); Potassium 4.2 mmol/L (3.4-5.0); Sodium 132 mmol/L (137-145)
[2024-02-29 11:33] LABS: INR 1.3; Prothrombin Time 16.9 Seconds (11.1-14.7)
[2024-02-29 11:34] LABS: Potassium Urine Random 29.5 meq/L; Sodium Urine Random 102 meq/L
[2024-03-01 04:03] LABS: Creatinine Urine 63.6 mg/dL
[2024-03-01 04:09] LABS: MALB Creatinine Ratio < 9.4 mg/g (0-30); Microalbumin Urine Random < 6.0 mg/L (0-16.7)
== END 2024-02-29 10:53 | disposition home or self-care (01) ==
LOC: ANHLAB 10:54
PROVIDERS: PCP Nurse Practitioner Family; Visit Provider Internal Medicine Gastroenterology
DX: K74.60 Unspecified cirrhosis of liver (principal); E11.9 Type 2 diabetes mellitus without complications
CPT/HCPCS: 36415; 80053; 82043; 84133; 84300; 85025; 85055; 85610

== ENCOUNTER 2024-05-18 15:19 | Emergency (ER) | payer OTHER, SELFPAY ==
--- NOTE | ~2024-05-18 | CT_ITS ---
EXAMINATION: CT abdomen pelvis wo con DATE: 05/18/2024 16:48 INDICATION: Flank pain TECHNIQUE: Computed tomography (CT) of the abdomen and pelvis was performed without intravenous contr ast. The dose-length product was 717.59 mGy-cm. Automated exposure control and iterative reconstructi on technique were employed. COMPARISON: CT dated 02/07/2024 FINDINGS: Moderate left pleural effusion with underlying compressive atelectasis. Small right pleural effusion. Large amount of ascites. Cirrhosis of the liver. No significant pericardial effusion. Sple nomegaly. There are multiple collateral vessels in the upper abdomen including the mesentery. Nonobst ructive bowel gas pattern. The kidneys, adrenal glands and pancreas within normal limits. Mild lower thoracic and lumbar spondylosis. IMPRESSION: 1. Cirrhosis of the liver with large volume of ascites and splenomegaly, compatible with portal venou s hypertension. 2: Bilateral pleural effusions, left greater than right. Reviewed, dictated and finalized at location A. [facility]IST IMPRESSION: 1. Cirrhosis of the liver with large volume of ascites and splenomegaly, compat ible with portal venous hypertension. 2: Bilateral pleural effusions, left greater than right.
[2024-05-18 15:30] VITALS: BP 128/77; PULSE 88; RESP 20; TEMP 36.6; O2SAT 100
[2024-05-18 16:40] LABS: Add Urine Microscopic? YES; Appearance Urine Clear (Clear); Bacteria Urine None Seen /hpf; Bilirubin Urine 1+ (Negative); Blood Urine 2+ (Negative); Color Urine Dark Yellow (Yellow); Glucose Urine UA Negative (Negative); Ketones Urine Trace mg/dL (Negative); Leukocyte Esterase Ur Trace LEU/UL (Negative); Mucus Urine Present /lpf; Need Manual Microscopic Reviewed; Nitrate Urine Negative (Negative); Non Pathogenic Casts 0-2; Protein Urine Trace mg/dL (Negative); RBC Urine >100 /hpf (0-2); Specific Grav Ur 1.022 (1.001-1.035); Squamous Epithelial Cell Urine None Seen /hpf (Few); pH Urine 5.5 (5.0-9.0)
[2024-05-18 16:45] VITALS: BP 138/78; PULSE 62; RESP 18; O2SAT 98
[2024-05-18 17:04] LABS: Basophils Percent Auto 0.7 % (0.2-1.2); Hematocrit 36.9 % (42.0-52.0); Hemoglobin 11.4 g/dL (14.0-18.0); Immature Granulocyte Absolute 0.01 K/mm3 (0.00-0.031); Immature Granulocyte Percent A 0.3 % (0-0.5); Lymphocytes Absolute Auto 0.42 K/mm3 (0.9-3.2); Mean Corpuscular HGB Conc 30.9 g/dl (32-36); Mean Corpuscular Hemoglobin 23.3 pg (26-34); Mean Corpuscular Volume 75.3 fl (80-100); Mean Platelet Volume 10.5 fl (7.4-10.4); Monocytes Absolute Auto 0.3 K/mm3 (0.1-0.6); Monocytes Percent Auto 10.4 % (2.6-8.5); Neutrophils Absolute Auto 2.2 K/mm3 (1.3-6.7); Neutrophils Percent Auto 73.6 % (45.5-73.1); Platelet Count Result 139 k/mm3 (150-375); Red Cell Distribution Width 16.3 % (11.5-14.5)
[2024-05-18 17:15] LABS: INR 1.3
[2024-05-18 17:16] LABS: Alanine Aminotransferase 19 U/L (6-50); Albumin Level 3.5 g/dL (3.5-5.1); Alkaline Phosphatase 83 U/L (38-126); Anion Gap 5 mmol/L (4-12); Aspartate Amino Transferase 23 U/L (17-59); Bilirubin,Total 1.1 mg/dL (0.2-1.3); Blood Urea Nitrogen 16 mg/dL (9-20); Calcium 8.7 mg/dL (8.4-10.2); Carbon Dioxide 30 mmol/L (22-30); Chloride 98 mmol/L (98-107); Estimated CRCL calculation 109 ml/min; Estimated Glomerular Filt Rate > 60; Glucose 173 mg/dL (65-110); Lipase 34 U/L (23-300); Sodium 133 mmol/L (137-145)
--- NOTE | 2024-05-18 17:57 | ED_ITS ---
HPI - General Adult General Chief complaint: Urogenital-Male Stated complaint: L flank pain Time Seen by Provider: 05/18/24 16:16 Source: patient Mode of arrival: ambulatory Limitations: no limitations History of Present Illness HPI narrative: 63-year-old with a history of cirrhosis of the liver, hypertension, diabetes here with a complaint of 2 day history of left flank pain. Patient states the past 2 days he has been having severe pain mostly at the night time. He denies any fall. No history of fever or chills. States patient states that he was at the doctor's office this morning had a urinalysis that office was found to have blood in the urine. Denies any history of kidney stones or kidney infection. Patient states that he is on 6 different diuretics . Patient also states that he has been losing weight for the past few weeks he Onset (ago): day(s) (2) Location: back (Left flank) Radiation: non-radiation Severity: moderate Pain Consistency: intermittent Relieving factors: none Exacerbating factors: none Related Data Home Medications ?Medication ?Instructions ?Recorded ?Confirmed ?Last Taken ?Type cetirizine 10 mg tablet (Zyrtec) 10 mg PO DAILY 12/01/21 02/29/24 02/05/24 History pantoprazole 40 mg tablet,delayed 40 mg PO BID 02/07/24 02/29/24 02/05/24 History release Allergies Allergy/AdvReac Type Severity Reaction Status Date / Time Penicillins Allergy Severe swelling Verified 05/18/24 12:57 Review of Systems 2 Review of Systems: All systems reviewed & are unremarkable except as noted in HPI and below Constitutional: Constitutional: Reports no additional constitutional complaints Eyes: Eyes: Reports no additional eye complaints ENT: Reports system reviewed and no additional complaints, except as documented Cardiovascular: Cardiovascular: Reports no additional cardiovascular complaints Respiratory: Respiratory: Reports no additional respiratory complaints Gastrointestinal: Gastrointestinal: Reports no additional gastrointestinal complaints Genitourinary: Genitourinary: Reports as per HPI Musculoskeletal: Musculoskeletal: Reports as per HPI Neurologic: Reports system reviewed and no additional complaints, except as documented Psychiatric: Psychiatric: Reports no additional psychiatric complaints COUNTS INCLUDE 234 BEDS AT THE [facility] Past Medical History Medical History Elevated LFTs MARINA (obstructive sleep apnea) CPAP Asthma Thrombocytopenia Adenomatous colon polyp Esophageal varices determined by endoscopy Cirrhosis Pancytopenia Iron deficiency anemia Depression Anxiety Hypothyroidism Hypertension GERD (gastroesophageal reflux disease) Type 2 diabetes mellitus Surgical History Surgical History History of abdominal paracentesis History of tonsillectomy and adenoidectomy History of hernia repair Family History Family History Father Ulcer Emphysema lung Social History Social History Social History: Lives alone with his 2 cats. Smoking status: Never smoker Alcohol intake: never Substance use: never Substance use type: does not use Do You Feel Safe in your Home?: Yes Lack of Transportation: No Lack of Food: Never True Current Housing: I Have Housing Concerned About Future Housing: YES Difficulty Paying Gas/Electric Bills: YES Difficulty Paying for Meds: YES Currently Unemployed: No Education: High School Diploma/GED Difficulty w/ Childcare or Family Care: No Living arrangements: alone Occupation/Education: occupation Additional occupation/education comments: Working at [employer]. Gender identity (if verbalized by the patient): Male Spiritual care concerns: No Exam 2 Narrative: GENERAL: Well-appearing, well-nourished, and in no acute distress. HEAD: Normocephalic, atraumatic. EYES: PERRLA and EOMI. ENT: Nares clear, no rhinorrhea or epistaxis. Mucous membranes moist. NECK: Supple. CHEST: Clear to auscultation. No respiratory distress. HEART: Regular rate and rhythm. No murmur heard. Normal peripheral pulses. ABDOMEN: Soft, nontender, mild distention d, normal active bowel sounds. EXTREMITIES: Normal range of motion. No edema. SKIN: Warm, dry, no rash. NEURO: No focal deficits. Alert and oriented x3. PSYCH: Normal mood and affect. Course Course Emergency Course: Notified patient about his lab work, CT findings cause of his flank pain is unknown at this time. Could be MSK pain advised him to take pain medication as prescribed well with this primary doctor Vital Signs Vital signs: Vital Signs Temperature 36.6 C 05/18/24 15:30 Pulse Rate 88 05/18/24 15:30 Respiratory Rate 20 05/18/24 15:30 Blood Pressure 128/77 05/18/24 15:30 Pulse Oximetry 100 05/18/24 15:30 Oxygen Delivery Room Air 05/18/24 15:30 Temperature 36.6 C 05/18/24 15:30 Pulse Rate 88 05/18/24 15:30 Respiratory Rate 20 05/18/24 15:30 Blood Pressure 128/77 05/18/24 15:30 Pulse Oximetry 100 05/18/24 15:30 Oxygen Delivery Room Air 05/18/24 15:30 Medical Decision Making Differential Diagnosis Differential Diagnosis: Kidney stones, pyelonephritis, as MSK pain Vital Signs Vital Signs: Vital Signs Temperature 36.6 C 05/18/24 15:30 Pulse Rate 88 05/18/24 15:30 Respiratory Rate 05/18/24 15:30 Blood Pressure 128/77 05/18/24 15:30 Pulse Oximetry 05/18/24 15:30 Oxygen Delivery Room Air 05/18/24 15:30 Temperature 36.6 C 05/18/24 15:30 Pulse Rate 88 05/18/24 15:30 Respiratory Rate 05/18/24 15:30 Blood Pressure 128/77 05/18/24 15:30 Pulse Oximetry 05/18/24 15:30 Oxygen Delivery Room Air 05/18/24 15:30 Lab Data 05/18/24 16:56 05/18/24 16:56 Labs: Lab Results 05/18/24 05/18/24 Range/Units 16:18 16:56 WBC 3.0 L (4.5-10.0) K/mm3 RBC 4.90 (4.6-6.20) M/mm3 Hgb 11.4 L (14.0-18.0) g/dL Hct 36.9 L (42.0-52.0) % MCV 75.3 L (80-100) fl MCH 23.3 L (26-34) pg MCHC 30.9 L (32-36) g/dl RDW 16.3 H (11.5-14.5) % Plt Count 139 L (150-375) k/mm3 MPV 10.5 H (7.4-10.4) fl Immature Gran % (Auto) 0.3 (0-0.5) % Neut % (Auto) 73.6 H (45.5-73.1) % Lymph % (Auto) 14.0 L (18.3-44.2) % [place] % (Auto) 10.4 H (2.6-8.5) % Eos % (Auto) 1.0 (0-4.4) % Baso % (Auto) 0.7 (0.2-1.2) % Lymph # (Auto) 0.42 L (0.9-3.2) K/mm3 [place] # (Auto) 0.3 (0.1-0.6) K/mm3 Eos # (Auto) 0.0 (0-0.3) K/mm3 Baso # (Auto) 0.0 (0.0-0.1) K/mm3 Abs Immat Gran (auto) 0.01 (0.00-0.031) K/mm3 Absolute Neuts (auto) 2.2 (1.3-6.7) K/mm3 Absolute Nucleated RBC 0.000 (0.0-0.012) K/mm3 Nucleated RBC % 0.0 (0.0-0.2) % PT 17.0 H (11.1-14.7) Seconds INR 1.3 Sodium 133 L (137-145) mmol/L Potassium 4.0 (3.4-5.0) mmol/L Chloride 98 (98-107) mmol/L Carbon Dioxide 30 (22-30) mmol/L Anion Gap 5 (4-12) mmol/L BUN 16 (9-20) mg/dL Creatinine 0.66 L (0.7-1.3) mg/dL Estim Creat Clear Calc 109 ml/min Estimated GFR > 60 (59 - ) Glucose 173 H (65-110) mg/dL Calcium 8.7 (8.4-10.2) mg/dL Total Bilirubin 1.1 (0.2-1.3) mg/dL AST 23 (17-59) U/L ALT 19 (6-50) U/L Alkaline Phosphatase 83 (38-126) U/L Total Protein 7.0 (6.3-8.2) g/dL Albumin 3.5 (3.5-5.1) g/dL Lipase 34 (23-300) U/L Urine Color Dark yellow (Yellow) Urine Appearance Clear (Clear) Urine pH 5.5 (5.0-9.0) Ur Specific [place] 1.022 (1.001-1.035) Urine Protein Trace (Negative) mg/dL Urine Glucose (UA) Negative (Negative) mg/dL Urine Ketones Trace H (Negative) mg/dL Ur Blood (Man) 2+ H (Negative) Urine Nitrate Negative (Negative) Urine Bilirubin 1+ H (Negative) Urine Urobilinogen 1.0 (<2.0) mg/dL Add Ur Microanalysis Reviewed Leukocyte Esterase Rfl Trace H (Negative) [place]/UL Urine RBC >100 H (0-2) /hpf Urine WBC 6-10 H (0-3) /hpf Ur Squamous Epith Cells None seen (Few) /hpf Urine Bacteria None seen /hpf Urine Casts 0-2 Urine Mucus Present /lpf Imaging Data Radiologist's impression: ITS Impressions Abdomen/Pelvis CT 05/18/24 16:48 IMPRESSION: 1. Cirrhosis of the liver with large volume of ascites and splenomegaly, compatible with portal venous hypertension. 2: Bilateral pleural effusions, left greater than right. Discharge Plan Discharge Clinical Impression: Back pain Qualifiers: Back pain location: back pain in unspecified location Chronicity: acute Back pain laterality: left Qualified Code(s): M54.9 - Dorsalgia, unspecified Patient Disposition: Home, Self-Care Condition: Stable Instructions: Antibiotic Form Patient Language: Vietnamese Prescriptions: New hydrocodone-acetaminophen 5-325 mg tablet 1 tablet PO Q6H PRN (Reason: pain) Qty: 10 0RF No Action spironolactone 50 mg tablet 100 mg PO DAILY MDD 100 30 Days Qty: 60 3RF cetirizine [Zyrtec] 10 mg tablet 10 mg PO DAILY ondansetron 8 mg tablet,disintegrating 8 mg PO Q12H PRN (Reason: nausea and vomiting) Qty: 20 0RF docusate sodium 100 mg capsule 100 mg PO DAILY PRN (Reason: constipation) Qty: 30 0RF spironolactone [Aldactone] 100 mg tablet 150 mg PO DAILY 14 Days Qty: 21 0RF pantoprazole 40 mg tablet,delayed release (DR/EC) 40 mg PO BID ferrous sulfate 325 mg (65 mg iron) Tablet,Delayed Release (Dr/Ec) 325 mg PO BID@1300,1700 Qty: 60 0RF spironolactone [Aldactone] 50 mg Tablet 100 mg PO QAM Qty: 60 0RF sertraline 100 mg tablet 200 mg PO DAILY 90 Days Qty: 180 3RF bupropion HCl 150 mg tablet extended release 24 hr 300 mg PO QAM 90 Days Qty: 180 3RF semaglutide 0.25 mg or 0.5 mg (2 mg/3 mL) pen injector 0.5 mg subcut .COMPLEX 28 Days Qty: 3 1RF Rx Instructions: 0.5 mg subcutaneously once weekly carvedilol [Coreg] 6.25 mg tablet 6.25 mg PO DAILY Qty: 90 3RF furosemide 20 mg tablet 40 mg PO DAILY Qty: 60 3RF tamsulosin 0.4 mg capsule 0.4 mg PO QAM Qty: 90 3RF Follow-up/Referrals: Jared Mills DO [Primary Care Provider] - Time of Disposition: 18:09
== END 2024-05-18 18:25 | disposition home or self-care (01) ==
PROVIDERS: Emergency Medicine; Emergency Provider Family Medicine; PCP Family Medicine
DX: M54.9 Dorsalgia, unspecified (principal); I10 Essential (primary) hypertension; E11.9 Type 2 diabetes mellitus without complications; E03.9 Hypothyroidism, unspecified; K74.60 Unspecified cirrhosis of liver; K21.9 Gastro-esophageal reflux disease without esophagitis; G47.33 Obstructive sleep apnea (adult) (pediatric); D69.6 Thrombocytopenia, unspecified; D50.9 Iron deficiency anemia, unspecified; Z86.0101 Personal history of adenomatous and serrated colon polyps; Z79.85 Long-term (current) use of injectable non-insulin antidiabetic drugs; Z79.899 Other long term (current) drug therapy; J90 Pleural effusion, not elsewhere classified; R18.8 Other ascites; R16.1 Splenomegaly, not elsewhere classified
CPT/HCPCS: 36415; 74176; 80053; 81001; 83690; 85025; 85610; 87086; 99284

== ENCOUNTER 2024-10-10 11:52 | Outpatient (CLI) | payer BC, OTHER, SELFPAY ==
--- OUTSIDE RECORDS SUMMARY | 2024-10-10 13:01 | XMS_ITS | Clinical Summary ---
Author Organization [facility] Address [address] [place] [address] Care Team Providers Care Cafeteria Assistant Name Role Phone Jared Mills DO Primary Care Provider [phone] Allergies Active Allergy Reactions Criticality Noted Date Comments Penicillins Swelling Low 01/06/2022 Medications buPROPion HCL (WELLBUTRIN XL) 150 mg Extended Release 24 hour tablet Take 300 mg by mouth daily. 10/18/2021 Active glimepiride (AMARYL) 2 mg tablet Take 2 mg by mouth 2 times daily. 10/18/2021 Active hydroCHLOROthiaz alex (HYDRODIURIL) 12.5 mg tablet Take 12.5 mg by mouth daily. 10/16/2021 Active losartan-hydroCH LOROthiazide (HYZAAR) 50-12.5 mg tablet Take 1 Tablet by mouth daily. 10/18/2021 Active pantoprazole (PROTONIX) 40 mg Tablet, Delayed Release (E.C.) Take 40 mg by mouth daily. 10/18/2021 Active sertraline (ZOLOFT) 100 mg tablet Take 100 mg by mouth daily. 10/18/2021 Active propranoloL (INDERAL) 10 mg tablet Take 10 mg by mouth every 12 hours. 03/20/2022 Active Active Problems Problem Noted Date Diagnosed Date Iron deficiency anemia 01/06/2022 Pancytopenia 01/06/2022 Splenomegaly 01/06/2022 Social History Tobacco Use Types Packs/Day Years Used Date Smoking Tobacco: Never Smokeless Tobacco: Never Tobacco Cessation:Counseling Given: Not Answered Sex and Gender Information Value Date Recorded Sex Assigned at Not on file Legal Sex Male 11:48 AM CDT Gender Identity Not on file Sexual Orientation Not on file Last Filed Vital Signs Vital Sign Reading Time Taken Comments Blood Pressure 155/90 04/21/2022 2:27 PM CRM MARKETING EXECUTIVE Pulse 74 04/21/2022 2:25 PM CRM MARKETING EXECUTIVE Temperature 36.3 C (97.3 F) 04/21/2022 2:25 PM CRM MARKETING EXECUTIVE Respiratory Rate 16 04/21/2022 2:25 PM CRM MARKETING EXECUTIVE Oxygen Saturation 98% 04/21/2022 2:25 PM CRM MARKETING EXECUTIVE Inhaled Oxygen Concentration - - Weight 111.3 kg (245 lb 4.8 oz) 04/21/2022 2:25 PM CRM MARKETING EXECUTIVE Height 182.9 cm (6') 01/06/2022 2:22 PM CDT Body Mass Index 33.27 01/06/2022 2:22 PM CDT Plan of Treatment Health Maintenance Due Date Last Done Comments DTAP/TDAP/TD VACCINES (1 - Tdap) 1980 COLORECTAL SCREENING 2006 Colorectal Cancer Screening 2006 FIT-DNA Q 3 years 2006 FIT/FOBT Q 1 year 2006 Flex Sig/CT Colonography Q 5 years 2006 ZOSTER VACCINE (1 of 2) 07/17/2011 INFLUENZA VACCINE (#1) 2023 RSV VACCINE (60+ or ) (1 - 1-dose 75+ series) [address] [place] [address] BLUE ACCESS CHOICE Care Teams Cafeteria Assistant Relationship Specialty Start Date End Date Jared Mills DO [address] [place] [address] PCP - General Family Practice 01/06/22
--- OUTSIDE RECORDS SUMMARY | 2024-10-10 13:01 | XMS_ITS | Clinical Summary ---
Author Organization [facility] Address [address] [place] [address] Care Team Providers Care Harp Maker Name Role Phone Jared Mills MD Primary Care Provider [phone] Allergies Active Allergy Reactions Criticality Noted Date Comments Penicillins Swelling 01/21/2024 Medications Sertraline HCl (ZOLOFT PO) Take 100 mg by mouth daily. Active losartan-hydroc hlorothiazide (HYZAAR) 50-12.5 MG Tablet Take 1 Tablet by mouth daily. Active buPROPion (WELLBUTRIN) 300 MG TABLET SR 24 HR XL tablet Take 300 mg by mouth every morning. Active Cetirizine HCl (ZYRTEC PO) Take 10 mg by mouth as needed. Active propranolol (INDERAL) 10 MG Tablet Take 10 mg by mouth 2 times daily. Active pantoprazole (PROTONIX) 40 MG Pack 40 mg by Per NG tube route daily. Active Semaglutide (OZEMPIC, 1 MG/DOSE, SC) 1 mg by Subcutaneous route once a week. Active Social History Tobacco Use Types Packs/Day Years Used Date Smoking Tobacco: Never Smokeless Tobacco: Never Tobacco Cessation:Counseling Given: Not Answered Alcohol Use Standard Drinks/Week Comments Never 0 (1 standard drink = 0.6 oz pur e alcohol) Sexually Active Control Partners Comments Not Currently Sex and Gender Information Value Date Recorded Sex Assigned at Not on file Legal Sex Male 9:57 AM CDT Gender Identity Not on file Sexual Orientation Not on file Last Filed Vital Signs Vital Sign Reading Time Taken Comments Blood Pressure 153/71 01/28/2024 10:52 AM CDT Pulse 77 01/28/2024 10:52 AM CDT Temperature 36.1 C (96.9 F) 01/28/2024 10:52 AM CDT Respiratory Rate 16 01/28/2024 10:5 2 AM CDT Oxygen Saturation 99% 01/28/2024 10: 52 AM CDT Inhaled Oxygen Concentration - - Weight 103.1 kg (227 lb 4.8 oz) 024 10:52 AM CDT Height 182.9 cm (6') 01/28/2024 10:52 AM CDT Body Mass Index 30.83 01/28/2024 10:52 AM CDT Plan of Treatment Health Maintenance Due Date Last Done Comments Hepatitis C Virus (HCV) Screening 1961 TdaP Immunization 1960 Colonoscopy 2006 Colorectal Cancer Screening 2006 Cologuard 07/17/2011 Immunochemical Fecal Occult Blood 07/17/2011 Zoster Immunization (1 of 2) 07/17/2011 PSA Discussion 2016 Pneumococcal Immunization (5 0+ years) (2 of 2 - PPSV23) 12/01/2022 12/01/2021 SARS-COV-2 Immunization (3 - season) 2024 01/29/2022, 10/06/2021 Influenza Immunization (Seas on Ended) 2025 Respiratory Syncytial Virus (RSV) Immunization (Adult) (1 - 1-dose 75+ series) 2036 Pneumococcal Immunization Combined Discontinued 12/01/2021 Hepatitis B Immunization Aged Out No longer eligible based on patient's age to complete this topic Human Papillomavirus (HPV) Immunization Aged Out No longer eligible based on patient's age to complete this topic Meningococcal Immunization (ACWY) Aged Out No longer eligible based on patient's age to complete this topic Rotavirus Immunization Aged Out No lo nger eligible based on patient's age to complete this topic [place] [address] [address] [place] [address] Care Teams Harp Maker Relationship Specialty Start Date End Date Jared Mills MD [address] [place] [address] PCP - General Family Medicine 01/27/24
--- OUTSIDE RECORDS SUMMARY | 2024-10-10 13:01 | XMS_ITS | Clinical Summary ---
Author Organization [facility] [employer] Address [address] [place] [address] Care Team Providers Care Research Chemical Engineer Name Role Phone Jared Mills DO Primary Care Provider [phone] Source Comments [facility] [employer],non-owned Affiliates and Associated Physician Practices is amultiple site organization consisting of ambulatory clinics and hospital sitesin [place], [place], [place] and [place]. This disclosure is being madepursuant to the Care Everywhere program and may not contain all information available regarding this patient. Last updated 18.[facility] [employer] Allergies Active Allergy Reactions Criticality Noted Date Comments Penicillins Swelling Low 01/06/2022 Hand swelling Medications * Be aware that medications may not be up to date on this document. Alwaysverify current medications with the patient. Ozempic, 1 MG/DOSE, 4 MG/3ML pen 1 (one) mg every 7 days 2 Active buPROPion XL 24hr (Wellbutrin-XL) 150 MG tablet Take 2 (two) tablets by mouth every morning 2 Active cetirizine (ZyrTEC ALLERGY) 10 MG gel capsule Take 1 (one) capsule by mouth once daily Active sertraline (Zoloft) 100 MG tablet Take 2 (two) tablets by mouth once daily 2 Active pantoprazole EC (Protonix) 40 MG tablet TAKE 1 TABLET BY MOUTH EVERY DAY AT BEDTIME 2 Active ferrous sulfate 325 (65 FE) MG tablet Take 1 (one) tablet by mouth once daily Not sure of dose Active tamsulosin (Flomax) 0.4 MG capsule Take 1 (one) capsule by mouth once daily 5 Active dicyclomine (Bentyl) 20 MG tablet Take 1 (one) tablet by mouth 2 times daily Active carvedilol (Coreg) 6.25 MG tablet Take 1 (one) tablet by mouth once daily 5 Active spironolactone (Aldactone) 100 MG tablet Take 2 (two) tablets by mouth once daily 180 tablet 3 5 09/30/19 26 Active furosemide (Lasix) 80 MG tablet Take 1 (one) tablet by mouth once daily 90 tablet 3 5 09/30/19 26 Active carvedilol (Coreg) 3.125 MG tablet Take 1 (one) tablet by mouth once daily Can't remember dose or how many tablets 09/30/19 25 Discontinu ed(Tx Complete) pantoprazole EC (Protonix) 20 MG tablet Take 1 (one) tablet by mouth once daily 09/30/19 25 Discontinu ed(Tx Complete) furosemide (Lasix) 20 MG tablet Take 3 tablets by mouth once daily 270 tablet 5 09/30/19 25 Discontinu ed(Reorder ) spironolactone (Aldactone) 50 MG tablet Take 3 tablets by mouth once daily 270 tablet 5 09/30/19 25 Discontinu ed(Reorder ) Active Problems Problem Noted Date Diagnosed Date Other cirrhosis of liver 04/13/2024 Portal hypertension 04/13/2024 Other ascites 04/13/2024 Encounters Date Type Department Care Team Description 10/02/2024 Results Follow-Up [facility] [place] [address] [place] [address] Dai Steel APRN-CNP 09/29/2024 11:47 AM CDT - 09/29/2024 11:59 PM CDT Hospital Encounter [facility] [address] [place] [address] Dai Steel, TOBIAS-ROXI Discharge Disposition: Home or Self Care 09/29/2024 11:14 AM CDT - 09/29/2024 11:46 AM CDT Hospital Encounter [facility] [address] [place] [address] Dai Steel, EMAIL MARKETING SPECIALIST-PRESCHOOL EDUCATION DIRECTOR Discharge Disposition: Home or Self Care 09/29/2024 9:30 AM CDT Office Visit [facility] [address] [place] [phone] Hari Sparks MD Swanson, Stephanie N, EMAIL MARKETING SPECIALIST-ROXI 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); Refractory ascites; Esophageal varices without bleeding, unspecified esophageal varices type (HCC) 09/29/2024 Travel 09/27/2024 Telephone [facility] [address] [place] [phone] Ana Wadsworth, RN Future Appointment 09/27/2024 Telephone [facility] - [facility] [address] [place] [phone] Ana Wadsworth, RN Future Appointment 09/27/2024 Travel 09/23/2024 12:16 AM CDT - 09/23/2024 6:31 AM CDT Emergency [facility] [address] [place] [phone] Dima Leiva MD SOB (shortness of breath); Other ascites Discharge Disposition: Home or Self Care 09/22/2024 Telephone [facility] [address] [place] [phone] Dai Steel APRN-PRESCHOOL EDUCATION DIRECTOR LABS ONLY 09/21/2024 Telephone [facility] [address] [place] [phone] Dai Steel EMAIL MARKETING SPECIALIST-PRESCHOOL EDUCATION DIRECTOR Shortness of Breath 09/01/2024 Telephone [facility] [address] [place] [phone] Dai Steel EMAIL MARKETING SPECIALIST-PRESCHOOL EDUCATION DIRECTOR Appointment 08/29/2024 Orders Only [facility] [address] [place] [phone] Dai Steel APRN-CNP 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) ; Refractory ascites; Esophageal varices without bleeding, unspecified esophageal varices type (HCC) 08/24/2024 Refill [facility] [address] [place] [phone] Dai Steel APRN-CNP Refill Request from Last 3 Months Social History Tobacco Use Types Packs/Day Years Used Date Smoking Tobacco: Never Smokeless Tobacco: Never Tobacco Cessation:Counseling Given: Not Answered Alcohol Use Standard Drinks/Week Comments Not Currently 0 (1 standard drink = 0.6 oz pur e alcohol) Sex and Gender Information Value Date Recorded Sex Assigned at Not on file Legal Sex Male 1:36 PM CDT Gender Identity Not on file Sexual Orientation Not on file Last Filed Vital Signs Vital Sign Reading Time Taken Comments Blood Pressure 124/87 09/29/2024 10:16 AM CDT Pulse 75 09/29/2024 10:16 AM CDT Temperature 36.6 C (97.9 F) 09/29/2024 10:16 AM CDT Respiratory Rate 20 09/22/2024 8:05 PM CDT Oxygen Saturation 99% 09/29/2024 10:16 AM CDT Inhaled Oxygen Concentration - - Weight 86.7 kg (191 lb 3.2 oz) 09/29/2024 10:16 AM CDT Height 182.9 cm (6') 09/29/2024 10:16 AM CDT Body Mass Index 25.93 09/29/2024 10:16 AM CDT Plan of Treatment Upcoming Encounters Date Type Department Care Team (Late st Contact Info) Description 03/26/2025 1:15 PM OVEREDGE SEWER Appointment [facility] [address] [place] [phone] Dai Steel APRN-CNP [address] [place] [address] [facility] [place] [address] 03/26/2025 2:30 PM OVEREDGE SEWER Office Visit [facility] - [address] [phone] Dai Steel, EMAIL MARKETING SPECIALIST-PRESCHOOL EDUCATION DIRECTOR [address] [place] [address] Health Maintenance Due Date Last Done Comments COLOGUARD (AGES 45-75) - COLON CA SCREENING 1961 COLON MONITORING 1961 COLONOSCOPY - COLON CA SCREENING 1961 CT COLONOGRAPHY - COLON CA SCREENING 1961 Colorectal Cancer Screening 1961 FIT - COLON CA SCREENING 1961 FLEX SIG - COLON CA SCREENING 1961 LIPID TESTING 1961 HIV SCREENING 1976 DTAP/TDAP/TD VACCINES (1 - Tdap) 1980 PNEUMOCOCCAL VACCINE 50+ (1 of 2 - PCV) 1980 ZOSTER VACCINE (1 of 2) 07/17/2011 HEPATITIS B VACCINE (1 of 3 - Risk 3-dose series) 2021 Respiratory Syncytial Virus (RSV) Vaccine Pt: or over 60 yrs (1 - Risk 60-74 years 1-dose series) 2021 COVID-19 VACCINE (3 - season) 2024 01/29/2022, 10/06/2021 DEPRESSION SCREENING 05/03/2024 INFLUENZA VACCINE (Season Ended) 2025 02/19/2023 SCREENING FOR DIABETES 09/30/2027 , 09/22/2024, 04/28/2024, Additional history exists HEPATITIS C SCREENING Completed 05/28/2022 HIB VACCINE Aged Out No longer eligi ble based on patient's age to complete this topic HPV VACCINE Aged Out No longer eligi ble based on patient's age to complete this topic MENINGOCOCCAL (Group B) VACCINE SHARED DECISION-MAKING Aged Out No longer eligible based on patient's age to complete this topic MENINGOCOCCAL GROUPS A/C/Y/W VACCINE Aged Out No longer eligible based on patient's age to complete this topic Goals Goal Patient Goal Type Associated Problems Recent Progress Patient-Stated? 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 Esophageal varices without bleeding, unspecified esophageal varices type (HCC) ALPHA FETOPROTEIN BLOOD TUMOR MARKER Routine 09/29/2024 1:20 PM CDT 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 Esophageal varices without bleeding, unspecified esophageal varices type (HCC) COMPREHENSIVE METABOLIC PANEL Routine 09/29/2024 1:20 PM CDT 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 Esophageal varices without bleeding, unspecified esophageal varices type (HCC) CBC W AUTO DIFFERENTIAL Routine 09/29/2024 1:20 PM CDT 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 Esophageal varices without bleeding, unspecified esophageal varices type (HCC) US ABDOMEN LIMITED Routine 09/29/2024 12 :29 PM CDT 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) CARDIAC EKG ORDER 09/25/2024 9:5 6 AM CDT ED PARACENTESIS Routine 09/23/2024 6:16 AM CDT DIFFERENTIAL MANUAL FLUID STAT 09/23/2024 4:34 AM CDT CELL COUNT W DIFFERENTIAL FLUID STAT 09/23/2024 4:34 AM CDT CULTURE FLUID+GRAM STAIN STAT 09/23/2024 4:34 AM CDT TROPONIN-I HIGH SENSITIVE REFLEX 1HOUR Timed 09/22/2024 10:46 PM CDT MAGNESIUM BLOOD STAT 09/22/2024 8:41 PM CDT TROPONIN-I HIGH SENSITIVE BASELINE + 1HR STAT 09/22/2024 8:41 PM CDT PT-INR [facility] STAT 09/22/2024 8:41 PM CDT COMPREHENSIVE METABOLIC PANEL STAT 09/22/2024 8:41 PM CDT CBC W AUTO DIFFERENTIAL STAT 09/22/2024 8:41 PM CDT XR CHEST 2VW STAT 09/22/2024 8:30 PM CDT SOB (shortness of breath) EKG 12-LEAD STAT 09/22/2024 8:28 PM CDT SOB (shortness of breath) HEPATITIS C AB SCREEN RFLX NAAT QUANT Routine 05/28/2022 3:40 PM OVEREDGE SEWER 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 from Last 3 Months or Most Recently Relevant to Health Maintenance Results * (ABNORMAL) PT-INR [facility] (09/29/2024 1:20 PM CDT) Only the most recent of2 resultswithin the time period is included. PT 16.0(H) 12.1 - 14.8 Seconds 09/29/2024 2:50 PM CDT [facility] INR 1.3 See Comment 09/29/2024 2:50 PM CDT [facility] Comment:The suggested therap eutic range for standard coumadin (warfarin) therapy is an INR of 2.0-3.0. For high-risk patients (Mechanical Mitral Valve Prosthesis, etc.), the suggested prophylactic therapeutic range is an INR of 2.5-3.5. Blood BLOOD SPECIMEN / Unknown Lab Venipuncture / Unknown 09/29/2024 1:20 PM CDT 09/29/2024 2:03 PM CDT Dai Steel EMAIL MARKETING [facility] - COAGULATION O RDERABLES Final Result Performing Organization Address City/[facility]/ZIP Co de Phone Number [address] [address], [facility] [phone] * ALPHA FETOPROTEIN BLOOD TUMOR MARKER (09/29/2024 1:20 PM CDT) [facility] Alpha-Fetoprote in Tumor Marker 3.5 <=8.3 ng/mL 09/29/2024 3:11 PM CDT [facility] Comment: AFP values will vary depending on testing procedure used. Results are not comparable across different methods. AFP values obtained by [facility] using an Multispan Alinity Immunoassay. Blood BLOOD SPECIMEN / Unknown Lab Venipuncture / Unknown 09/29/2024 1:20 PM CDT 09/29/2024 2:37 PM CDT Dai Steel [facility] - CHEMISTRY ORD ERABLES Final Result Performing Organization Address [facility]/ZIP Co de Phone Number [address] [address], [facility] [phone] * (ABNORMAL) CBC WITH DIFFERENTIAL (09/29/2024 1:20 PM CDT) Only the most recent of2 resultswithin the time period is included. [facility] WBC 2.9(L) 4.0 - 10.7 x10E9/L 09/29/2024 2:22 PM CDT [facility] RBC Count 4.97 4.30 - 5.80 x10E12/L 09/29/2024 2:22 PM CDT [facility] Hemoglobin 11.4(L) 13.3 - 17.5 g/dL 09/29/2024 2:22 PM CDT [facility] Hematocrit 35.9(L) 38.7 - 51.1 % 09/29/2024 2:22 PM CDT [facility] MCV 72.2(L) 80.0 - 98.0 fL 09/29/2024 2:22 PM [facility] MCH 22.9(L) 26.7 - 33.6 pg 09/29/2024 2:22 PM [facility] MCHC 31.8 31.7 - 36.3 g/dL 09/29/2024 2:22 PM [facility] RDW-CV 17.4(H) 11.3 - 14.8 % 09/29/2024 2:22 PM [facility] Platelet Count 83(L) 150 - 420 x10E9/L 09/29/2024 2:22 PM [facility] Neutrophil % 72.5 41.0 - 74.0 % 09/29/2024 2:22 PM [facility] Lymphocyte % 15.0(L) 17.0 - 47.0 % 09/29/2024 2:22 PM [facility] Monocyte % 9.8 3.0 - 11.0 % 09/29/2024 2:22 PM [facility] Eosinophil % 1.4 0.0 - 7.0 % 09/29/2024 2:22 PM [facility] Basophil % 1.0 0.0 - 1.6 % 09/29/2024 2:22 PM [facility] Immature Granulocytes % 0.3 0.0 - 1.0 % 09/29/2024 2:22 PM [facility] Neutrophil Absolute 2.07 1.60 - 7.50 x10E9/L 09/29/2024 2:22 PM [facility] Lymphocyte Absolute 0.43(L) 1.00 - 4.40 x10E9/L 09/29/2024 2:22 PM [facility] Monocyte Absolute 0.28 0.15 - 1.00 x10E9/L 09/29/2024 2:22 PM [facility] Eosinophil Absolute 0.04 0.00 - 0.60 x10E9/L 09/29/2024 2:22 PM [facility] Basophil Absolute 0.03 0.00 - 0.13 x10E9/L 09/29/2024 2:22 PM [facility] Blood BLOOD SPECIMEN / Unknown Lab Venipuncture / Unknown 09/29/2024 1:20 PM CDT 09/29/2024 2:08 PM CDT Dai Steel EMAIL MARKETING SPECIALIST-PRESCHOOL EDUCATION DIRECTOR LAB - HEMATOLOGY OR DERABLES Final Result [facility] [address] [place] [address], [facility] [phone] * (ABNORMAL) COMPREHENSIVE METABOLIC PANEL (09/29/2024 1:20 PM CDT) Only the most recent of2 resultswithin the time period is included. BUN 14 7 - 26 mg/dL 09/29/2024 3:10 PM [facility] Creatinine 0.64(L) 0.71 - 1.16 mg/dL 09/29/2024 3:10 PM [facility] Sodium 130(L) 136 - 145 mmol/L 09/29/2024 3:10 PM [facility] Potassium 4.5 3.5 - 4.5 mmol/L 09/29/2024 3:10 PM [facility] Chloride 99 98 - 107 mmol/L 09/29/2024 3:10 PM [facility] CO2 23 22 - 29 mmol/L 09/29/2024 3:10 PM [facility] Glucose 228(H) 70 - 99 mg/dL 09/29/2024 3:10 PM [facility] Calcium 9.2 8.4 - 10.2 mg/dL 09/29/2024 3:10 PM [facility] Protein Total 7.1 6.0 - 8.3 g/dL 09/29/2024 3:10 PM [facility] Albumin 3.8 3.4 - 5.0 g/dL 09/29/2024 3:10 PM [facility] Bilirubin Total 0.9 0.2 - 1.2 mg/dL 09/29/2024 3:10 PM [facility] Alkaline Phosphatase 95 40 - 150 U/L 09/29/2024 3:10 PM [facility] ALT 19 5 - 55 U/L 09/29/2024 3:10 PM CDT [facility] AST 22 5 - 34 U/L 09/29/2024 3:10 PM CDT [facility] Anion Gap 8 6 - 16 09/29/2024 3:10 PM CDT [facility] BUN/Creatinine Ratio 22 7 - 23 09/29/2024 3:10 PM CDT [facility] Osmolality Calculated 278 275 - 295 mOsm/kg 09/29/2024 3:10 PM CDT [facility] Albumin/Globulin Ratio 1.2 1.1 - 2.3 09/29/2024 3:10 PM CDT [facility] eGFR by CKD-EPI >90 >=90 mL/min/1.7 3 m2 09/29/2024 3:10 PM CDT [facility] Blood BLOOD SPECIMEN / Unknown Lab Venipuncture / Unknown 09/29/2024 1:20 PM CDT 09/29/2024 2:34 PM CDT us Dai Steel EMAIL MARKETING SPECIALIST-PRESCHOOL EDUCATION DIRECTOR LAB - CHEMISTRY ORD ERABLES Final Result [facility] [address] [place] [address], [facility] [phone] * US Abdomen Limited (09/29/2024 12:29 PM CDT) Anatomical Region Laterality Modality Abdomen Ultrasound 09/29/2024 1:52 PM CDT Impressions 09/29/2024 3:48 PM CDT Impression: Liver Visualization Score A: No or minimal limitations. US-1 Negative. Repeat surveillance US in 6 months. 1.Cirrhotic liver morphology with sequela of portal hypertension including splenomegaly and moderate volume ascites. Report drafted by Lakshmi Hui MD (resident). > Dictated by Lakshmi Hui MD (Chemist) 09/29/2024 1:52 PM Zhou Castrejon have personally reviewed and interpreted this examination/study. 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 Findings Liver Visualization Score: No or minimal limitations in liver visualization Liver Morphology: The liver has a coarse echotexture and nodular surface. Liver Observations: None. Main Portal Vein: Color Doppler evaluation demonstrates patency of the main portal vein. Hepatic Veins: Color Doppler evaluation demonstrates patency of the hepatic veins. Bile Ducts: The common bile duct is nondilated, measuring 4.2 mm. No intrahepatic or extrahepatic biliary dilation. Gallbladder: No gallstones or pericholecystic fluid is seen.. Sonographic Abbasi's sign is negative. Ascites: Moderate volume ascites is present. Spleen: The spleen measures 16.2 cm in length. Pancreas: The visible pancreas is normal in echogenicity. Right Kidney: The right kidney measures 12.0 x 6.5 x 7.2 cm, renal volume 294 mL. Simple cyst at the inferior right kidney measuring up to 4.8 cm. Limited views of the right kidney reveal no evidence of nephrolithiasis or hydronephrosis. No discrete mass identified. 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 Findings Liver Visualization Score: No or minimal limitations in liver visualization Liver Morphology: The liver has a coarse echotexture and nodular surface. Liver Observations: None. Main Portal Vein: Color Doppler evaluation demonstrates patency of the main portal vein. Hepatic Veins: Color Doppler evaluation demonstrates patency of the hepatic veins. Bile Ducts: The common bile duct is nondilated, measuring 4.2 mm. No intrahepatic or extrahepatic biliary dilation. Gallbladder: No gallstones or pericholecystic fluid is seen.. Sonographic Abbasi'ssign is negative. Ascites: Moderate volume ascites is present. Spleen: The spleen measures 16.2 cm in length. Pancreas: The visible pancreas is normal in echogenicity. Right Kidney: The right kidney measures 12.0 x 6.5 x 7.2 cm, renal volume 294 mL.Simple cyst at the inferior right kidney measuring up to 4.8 cm. Limited viewsof the right kidney reveal no evidence of nephrolithiasis or hydronephrosis. No discrete mass identified. Impression: Liver Visualization Score A: No or minimal limitations. US-1 Negative. Repeat surveillance US in 6 months. 1.Cirrhotic liver morphology with sequela of portal hypertensionincluding splenomegaly and moderate volume ascites. Report drafted by Lakshmi Hui MD (resident). > Dictated by Lakshmi Hui MD (Chemist) 09/29/2024 1:52 PM IZhou have personally reviewed and interpreted this examination/study. > Interpreting Provider: Zhou Lambert on 09/29/2024 3:48 PM us Dai Anupam Steel EMAIL MARKETING SPECIALIST-PRESCHOOL EDUCATION DIRECTOR US ORDERABLES Fin al Result * CARDIAC EKG ORDER (09/25/2024 9:56 AM CDT) Narrative 09/25/2024 9:56 AM CDT Ordered by an unspecified provider. us Scanned Document CARDIAC SERVICES ORDERABLES Fin al Result * Paracentesis (09/23/2024 6:16 AM CDT) Narrative Dima Leiva MD - 09/23/2024 6:16 AM CDT Dima Leiva MD 09/24/2024 5:36 AM Paracentesis Date/Time: 09/23/2024 6:16 AM Performed by: Martin Arnold DO Authorized by: Dima Leiva MD Consent: Consent obtained: Verbal Consent given by: Patient Risks discussed: Bleeding, infection and pain [place] protocol: Patient identity confirmed: Verbally with patient Pre-procedure details: Procedure purpose: Therapeutic Preparation: Patient was prepped and draped in usual sterile fashion Anesthesia: Anesthesia method: Local infiltration Local anesthetic: Lidocaine 1% w/o epi Procedure details: Needle gauge: 20 Ultrasound guidance: yes Puncture site: L lower quadrant Fluid removed amount: 4.5 L Fluid appearance: Clear and yellow Dressing: Adhesive bandage Post-procedure details: Procedure completion: Tolerated well, no immediate complications us Dima Leiva MD PROCEDURE/MINOR SURGICAL ORDE RABLES Final Result * DIFFERENTIAL MANUAL FLUID (09/23/2024 4:34 AM CDT) Fluid Source Peritoneal 09/23/2024 5:40 AM CDT [facility] Body Fluid Total Cell Count 100 x10E6/L 09/23/2024 5:40 AM CDT [facility] Neutrophils Fluid Percent 6 % 09/23/2024 5:40 AM CDT [facility] Lymphocytes Fluid Percent 32 % 09/23/2024 5:40 AM CDT [facility] Macrophages Fluid Percent 60 % 09/23/2024 5:40 AM CDT [facility] Mesothelial Cells Fluid Percent 2 % 09/23/2024 5:40 AM CDT [facility] Fluid PERITONEAL FLUID / Unknown Collection / Unknown 09/23/2024 4:34 AM CDT 09/23/2024 4:37 AM CDT Narrative [facility] - 09/23/2024 5:40 AM CDT No reference ranges established for body fluid differential cell counts. The test results must be integrated into the clinical context for interpretation. Dima Leiva MD LAB - BODY FLUID ORDERABLES F inal Result Performing Organization Address City/State/[facility] Co de Phone Number [address] [address], [facility] [phone] * CULTURE FLUID+GRAM STAIN (09/23/2024 4:34 AM CDT) Culture No growth ELIJAH 09/26/2024 8:48 AM CDT [facility] Gram Stain No polymorphonuclear cells 09/26/2024 8:48 AM CDT [facility] Gram Stain No organisms seen 025 8:48 AM CDT [facility] Other PERITONEAL FLUID / Unknown Collection / Unknown 09/23/2024 4:34 AM CDT 09/23/2024 4:37 AM CDT us Dima Leiva MD LAB - MICROBIOLOGY ORDERABLES Final Result Performing Organization Address [facility]/ZIP Co de Phone Number [facility] [address] [place] [address], [facility] [phone] * CELL COUNT W DIFFERENTIAL FLUID (09/23/2024 4:34 AM CDT) Fluid Source Peritoneal 09/23/2024 5:40 AM CDT [facility] Fluid Appearance SLIGHTLY HAZY 09/23/2024 5:40 AM CDT [facility] Fluid Color YELLOW 09/23/2024 5:40 AM CDT [facility] Total Nucleated Cells Fluid 163 Reference Range Not Established x10E6/L 09/23/2024 5:40 AM CDT [facility] RBC Count Fluid 2,000 Reference Range Not Established x10E6/L 09/23/2024 5:40 AM T [facility] Fluid PERITONEAL FLUID / Unknown Collection / Unknown 09/23/2024 4:34 AM CDT 09/23/2024 4:37 AM CDT Narrative [facility] - 09/23/2024 5:40 AM CDT No reference ranges established for body fluid cell counts. Any reference ranges provided are derived from published literature. The test results must be integrated into the clinical context for interpretation. Dima Leiva MD LAB - BODY FLUID ORDERABLES F inal Result Performing Organization Address [facility] Co de Phone Number [facility] [address] [place] [address], [place] [phone] * TROPONIN-I HIGH SENSITIVE REFLEX 1HOUR (09/22/2024 10:46 PM CDT) Troponin I High Sensitive <3 <=35 ng/L 09/22/2024 11:27 PM CDT [facility] Delta Troponin I HS 09/22/2024 11:27 PM T [facility] Comment:Delta value intentio andrea not calculated. Baseline to 1 hour specimen collection interval exceeded. Blood BLOOD SPECIMEN / Unknown Venipuncture / Unknown 09/22/2024 10:46 PM CDT 09/22/2024 10:52 PM CDT [facility] - CHEMISTRY ORDER ASHANTI Final Result [address] [address], [place] [phone] * TROPONIN-I HIGH SENSITIVE BASELINE + 1HR (09/22/2024 8:41 PM CDT) Troponin I High Sensitive <3 <=35 ng/L 09/22/2024 9:23 PM CDT [facility] Blood BLOOD SPECIMEN / Unknown Venipuncture / Unknown 09/22/2024 8:41 PM CDT 09/22/2024 8:46 PM CDT [facility] - CHEMISTRY ORDER ASHANTI Final Result Performing Organization Address City/[facility]/ZIP Co de Phone Number [address] [address], [place] [phone] * MAGNESIUM BLOOD (09/22/2024 8:41 PM CDT) Magnesium 1.6 1.6 - 2.6 mg/dL 09/22/2024 9:19 PM CDT [facility] Blood BLOOD SPECIMEN / Unknown Venipuncture / Unknown 09/22/2024 8:41 PM CDT 09/22/2024 8:46 PM CDT [facility] - CHEMISTRY ORDER ASHANTI Final Result [address] [address], [place] [phone] * XR CHEST 2VW (09/22/2024 8:30 PM CDT) Anatomical Region Laterality Modality Chest Digital Radiogra phy 09/23/2024 12:3 4 AM CDT Narrative 09/23/2024 6:12 AM CDT PROCEDURE: XR CHEST 2VW, DATE/TIME OF EXAM: 09/22/2024 8:30 PM, LOCATION [facility] INDICATION: R06.02: SOB (shortness of breath) ADDITIONAL CLINICAL INFORMATION: Ordering Provider Reason For Exam: r/o effusion COMPARISON: None. FINDINGS/IMPRESSION: There is a moderate left-sided pleural effusion with associated atelectasis/airspace disease. The right lung is clear. No pneumothorax. The cardiomediastinal silhouette is partially obscured. The visible bony thorax is intact. Report dictated by Dima Stoner MD (radiology aide). Ranjit Castrejon MD have personally reviewed and interpreted this examination/study. > Interpreting Provider: Ranjit Padilla MD on 09/23/2024 6:12 AM Procedure Note Ranjit Padilla MD - 09/23/2024 PROCEDURE: XR CHEST 2VW, DATE/TIME OF EXAM: 09/22/2024 8:30 PM, LOCATION [facility] INDICATION: R06.02: SOB (shortness of breath) ADDITIONAL CLINICAL INFORMATION: Ordering Provider Reason For Exam: r/o effusion COMPARISON: None. FINDINGS/IMPRESSION: There is a moderate left-sided pleural effusion with associated atelectasis/airspace disease. The right lung is clear. No pneumothorax.The cardiomediastinal silhouette is partially obscured. The visible bonythorax is intact. Report dictated by Dima Stoner MD (radiology aide). Ranjit Castrejon MD have personally reviewed and interpreted this examination/study. > Interpreting Provider: Ranjit Padilla MD on 09/23/2024 6:12 AM Gayla Aldrich PA-C DIAGNOSTIC IMAGING OR DERABLES Final Result * EKG 12-LEAD (09/22/2024 8:28 PM CDT) Ventricular Rate 81 BPM [facility] Atrial Rate 81 BPM [facility] P-R Interval 166 ms [facility] QRS Duration ms 80 ms [facility] Q-T Interval ms 372 ms [facility] QTC Calculation (Bezet) 432 ms [facility] Calculated P Downing 9 degrees [facility] Calculated R Downing -6 degrees [facility] Calculated T Downing 11 degrees [facility] Interpretation EKG NORMAL SINUS RHYTHM ABNORMAL ECG NO PREVIOUS ECGS AVAILABLE Confirmed by MIKE PRAKASH MD ([id number]) on 09/24/2024 11:43:35 PM [facility] 09/22/2024 8:28 PM CDT 09/24/2024 11:43 PM CDT Gayla Aldrich PA-C ECG ORDERABLES Edite d Result - Final Performing Organization Address City/[facility]/ZIP Co de Phone Number [facility] * HEPATITIS C AB SCREEN RFLX NAAT QUANT (05/28/2022 3:40 PM OVEREDGE SEWER) Hepatitis C Antibody Non-react sawyer Non-reac tive 05/28/2022 5:37 PM OVEREDGE SEWER [facility] Comment:Hepatitis C Antibody screen indicates no serologic evidence of past or current infection with Hepatitis C Virus. Patients with unexplained liver disease who are immunocompromised or suspected of having acute Hepatitis C infection may benefit from Nucleic Acid Test (ISAMAR) for Hepatitis C Viral RNA to confirm Hepatitis C status. Blood BLOOD SPECIMEN / Unknown Lab Venipuncture / Unknown 05/28/2022 3:40 PM OVEREDGE SEWER 05/28/2022 4:21 PM OVEREDGE SEWER Ranjit Sparks MD LAB - CHEMISTR Y ORDERABLES Final Result Performing Organization Address City/[facility]/ZIP Co de Phone Number [facility] [address] [address], [facility] [phone] from Last 3 Months or Most Recently Relevant to Health Maintenance Insurance [employer] Care Teams Research Chemical Engineer Relationship Specialty Start Date End Date Jared Mills DO [address] [place] [phone] PCP - General 03/04/22
--- OUTSIDE RECORDS SUMMARY | 2024-10-10 13:01 | XMS_ITS | Encounter Summary ---
Author Organization [facility] Address [address] [facility] [place] [address] Care Team Providers Care Cia Agent Name Role Phone Lina Jared BRANDON Primary Care Provider [phone] Encounter Details Date Type Department Care Team (Late st Contact Info) Description 10/02/2024 Results Follow-Up [facility] [address] [facility], [place] [id number] Dai Steel, [facility] [address] [place] [address] [facility] [place], [place] [id number] Social History Tobacco Use Types Packs/Day Years Used Date Smoking Tobacco: Never Smokeless Tobacco: Never Alcohol Use Standard Drinks/Week Comments Not Currently 0 (1 standard drink = 0.6 oz pur e alcohol) Sex and Gender Information Value Date Recorded Sex Assigned at Not on file Legal Sex Male 1:36 PM CDT Gender Identity Not on file Sexual Orientation Not on file documented as of this encounter Functional Status * Is person deaf or have serious hearing difficulty? Answer Date of Assessment Author No 04/13/2024 1:00 PM Jane Bryant RN * Is person blind or have serious difficulty seeing? Answer Date of Assessment Author No 04/13/2024 1:00 PM Jane Bryant RN * Does person have serious difficulty walking/climbing stairs? Answer Date of Assessment Author No 04/13/2024 1:00 PM Jane Bryant RN * Does person have difficulty dressing/bathing? Answer Date of Assessment Author No 04/13/2024 1:00 PM Jane Bryant RN * Does person have difficulty doing errands alone? Answer Date of Assessment Author No 04/13/2024 1:00 PM Jane Bryant RN documented as of this encounter Mental Status * Does person have difficulty concentrating/remembering/making decisions? 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 Author Medication Management General On track( 025 10:19 AM CDT) No Sheron Coughlin RN Note: Expected end date: Ongoing Interventions: Take all medications as prescribed Let your doctor know right away about any changes in your medications Make sure to request a refill of your medication at least one week prior to your last dose Make and keep follow-up appointments General On track( 025 10:19 AM CDT) No Ashley Acosta, RN documented as of this encounter Visit Diagnoses Not on filedocumented in this encounter Care Teams Cia Agent Relationship Specialty Start Date End Date Jared Mills DO [address] [place] [address] PCP - General 03/04/22 documented as of this encounter
[2024-10-10 14:02] LABS: Prostate Specific Antigen < 0.1 ng/mL (< OR = 4.0)
[2024-10-11 15:29] LABS: Alanine Aminotransferase 33 U/L (6-50); Albumin Level 3.6 g/dL (3.5-5.1); Alkaline Phosphatase 112 U/L (38-126); Anion Gap 6 mmol/L (4-12); Aspartate Amino Transferase 36 U/L (17-59); Bilirubin,Total 0.6 mg/dL (0.2-1.3); Blood Urea Nitrogen 18 mg/dL (9-20); Calcium 8.3 mg/dL (8.4-10.2); Carbon Dioxide 22 mmol/L (22-30); Chloride 102 mmol/L (98-107); Estimated Glomerular Filt Rate > 60; Glucose 318 mg/dL (65-110); Osmolality Calculated 283 mOsm/kg (285-295); Potassium 4.7 mmol/L (3.4-5.0); Sodium 130 mmol/L (137-145)
[2024-10-11 15:55] LABS: Hematocrit 35.9 % (40.0-54.0); Hemoglobin 10.6 g/dL (14.0-18.0); Mean Corpuscular HGB Conc 29.5 g/dL (32-36); Mean Corpuscular Hemoglobin 22.8 pg (27.0-31.0); Mean Corpuscular Volume 77.4 fL (78.0-102.0); Platelet Count Result 97 K/mm3 (150-420); Red Blood Count 4.64 M/mm3 (4.70-6.10); Red Cell Distribution Width 18.1 % (11.6-14.4); White Blood Count 3.5 K/mm3 (4.8-10.8)
[2024-10-11 15:59] LABS: Immature Platelet Fraction Pct 6.7 % (1.0-7.0)
[2024-10-11 16:13] LABS: Total Cells Counted 100
[2024-10-11 16:14] LABS: Anisocytosis 2+; Band Neutrophils Percent 2 % (0-6); Eosinophils Absolute Manual 0.03 K/mm3 (0.02-0.50); Eosinophils Percent Manual 1 % (1-6); Lymphocytes Absolute Manual 0.38 K/mm3 (1.1-4.5); Lymphocytes Percent Manual 11 % (18-44); Monocytes Absolute Manual 0.31 K/mm3 (0.1-0.90); Monocytes Percent Manual 9 % (3-9); Neutrophils Absolute Manual 2.76 K/mm3 (1.3-6.7); Neutrophils Percent Manual 77 % (46-73); Platelet Estimate Decreased (Adequate); Poikilocytosis 2+; Schistocytes None Seen
== END 2024-10-10 11:53 | disposition home or self-care (01) ==
PROVIDERS: PCP Family Medicine; Visit Provider Family Medicine
DX: R35.1 Nocturia (principal); K74.60 Unspecified cirrhosis of liver; R18.8 Other ascites
CPT/HCPCS: 36415; 80053; 84153; 85025; 85055; G0103

== ENCOUNTER 2024-12-14 09:59 | Outpatient (CLI) | payer OTHER, SELFPAY ==
--- NOTE | 2024-12-14 | CONSULT_PTH ---
PATIENT: Ez Burgos LOC: [facility]#:[id number] AGE/SX: 64/M ROOM: RE12/14/[address]: Jared Mills DO : 1960 BED: DIS: 12/14/2024 SPEC #: [id number] RECD: 12/14/24 12:16 STATUS: COURT REDwight #: [id number] JESSE: 12/14/24 00:[address]: Jared Mills [facility]PT[facility] Consult RECD BY: Joslyn Marshall MT,([facility]) Tissues: A - Peripheral Smear Procedures: Hematology Consult
--- NOTE | ~2024-12-14 | CT_ITS ---
EXAMINATION: CT abdomen pelvis w con DATE: 12/14/2024 11:23 INDICATION: Acute embolism. TECHNIQUE: Computed tomography (CT) of the abdomen and pelvis was performed with intravenous contrast . The dose-length product was 617.31 mGy-cm. COMPARISON: CT abdomen and pelvis 05/18/2024 FINDINGS: Small left-sided pleural effusion. 1 cm calcified granuloma in the right middle lobe. Spleen is enlarged. The liver is heterogeneous possibly due to hepatocellular disease. There appear to be gastric, spleni c and esophageal varices. The adrenal glands are unremarkable. There is a 5.4 cm cyst in the right kidney. Kidneys are otherwis e unremarkable. Pancreas is unremarkable. No abdominal aortic aneurysm. There are a few nonenlarged, nonspecific lymph nodes in the abdomen and pelvis. Gallbladder is unremarkable. Thickening of the henson of the cardia and body of the stomach. Differential includes incomplete stoma ch wall distention, gastritis or mass. Moderate amount of nonspecific fat stranding and fluid throughout the abdomen and pelvis. Bladder is unremarkable. Moderate amount of stool. Appendix is not definitely identified. There are a few distended small bowel loops with bowel wall thickening. Enteritis is possible. IMPRESSION: 1. Thickening of the henson of the cardia and body of the stomach. Differential includes incomplete st omach wall distention, gastritis or mass. 2. Moderate amount of nonspecific fat stranding and fluid throughout the abdomen and pelvis. 3. Spleen is enlarged. 4.There are a few distended small bowel loops with bowel wall thickening. The bowel wall thickening m ay be due to enteritis or a fluid overload state. 5.The liver is heterogeneous possibly due to hepatocellular disease. Consider a liver mass MRI for fu rther assessment. 6.There appear to be gastric, splenic and esophageal varices. Reviewed, dictated and finalized at location A. IMPRESSION: 1. Thickening of the henson of the cardia and body of the stomach. Differential includes incomplete stomach wall distention, gastritis or mass. 2. Moderate amount of nonspecific fat stranding and fluid throughout the abdome n and pelvis. 3. Spleen is enlarged. 4.There are a few distended small bowel loops with bowel wall thickening. The b owel wall thickening may be due to enteritis or a fluid overload state. 5.The liver is heterogeneous possibly due to hepatocellular disease. Consider a liver mass MRI for further assessment. 6.There appear to be gastric, splenic and esophageal varices.
--- OUTSIDE RECORDS SUMMARY | 2024-12-14 10:16 | XMS_ITS | Clinical Summary ---
Author Organization [facility] Address [address] [place] [address] Care Team Providers Care Educational Diagnostician Name Role Phone Jared Mills MD Primary Care Provider [phone] Allergies Active Allergy Reactions Criticality Noted Date [...] Virus (HCV) Screening 1960 TdaP Immunization 1960 Cologuard 2006 Colonoscopy 2006 Colorectal Cancer Screening 2006 Immunochemical Fecal Occult Blood 2006 Zoster Immunization (1 of 2) 07/17/2011 PSA Discussion 2016 Pneumococcal Immunization (5 0+ years) (2 of 2 - PCV20 or PCV21) 12/01/2022 12/01/2021 SARS-COV-2 Immunization (3 - season) 2024 01/29/2022, 10/06/2021 Influenza Immunization (#1) 2025 Respiratory Syncytial Virus (RSV) Immunization (Adult) [...] patient's age to complete this topic [place] [address] [place] [address] Care Teams Educational Diagnostician Relationship Specialty Start Date End Date Jared Mills MD [address] [place] [id number] PCP - General Family Medicine 01/27/24
--- OUTSIDE RECORDS SUMMARY | 2024-12-14 10:16 | XMS_ITS | Clinical Summary ---
Author Organization [facility] Address [address] [place] [address] Care Team Providers Care Tobacco Sampler Name Role Phone Jared Mills DO Primary Care Provider [phone] Source Comments [facility] ([facility]),non-owned Affiliates and Associated Physician Practices is amultiple site organization consisting of ambulatory clinics and hospital sitesin [place], [place], [place] and [place]. This disclosure is being madepursuant to the Care Everywhere program and may not contain all information available regarding this patient. Last updated 18.[facility] Allergies Active Allergy Reactions Criticality Noted Date Comments Penicillins Swelling Low 01/06/2022 Hand swelling Medications * Be aware that medications may not be up to date on this document. Alwaysverify current medications with the patient. Ozempic, 1 MG/DOSE, 4 MG/3ML pen 1 (one) mg every 7 days 03/20/2022 Active buPROPion XL 24hr (Wellbutrin-XL) 150 MG tablet Take 2 (two) tablets by mouth every morning 03/20/2022 Active cetirizine (ZyrTEC ALLERGY) 10 MG gel capsule Take 1 (one) capsule by mouth once daily Active sertraline (Zoloft) 100 MG tablet Take 2 (two) tablets by mouth once daily 03/20/2022 Active pantoprazole EC (Protonix) 40 MG tablet TAKE 1 TABLET BY MOUTH EVERY DAY AT BEDTIME 03/20/2022 Active ferrous sulfate 325 (65 FE) MG tablet Take 1 (one) tablet by mouth once daily Not sure of dose Active tamsulosin (Flomax) 0.4 MG capsule Take 1 (one) capsule by mouth once daily 09/25/2024 Active dicyclomine (Bentyl) 20 MG tablet Take 1 (one) tablet by mouth 2 times daily Active carvedilol (Coreg) 6.25 MG tablet Take 1 (one) tablet by mouth once daily 09/25/2024 Active spironolactone (Aldactone) 100 MG tablet Take 2 (two) tablets by mouth once daily 180 tablet 3 09/29/2024 Active furosemide (Lasix) 80 MG tablet Take 1 (one) tablet by mouth once daily 90 tablet 3 09/29/2024 Active Active Problems Problem Noted Date Diagnosed Date Other cirrhosis of liver 04/13/2024 Portal hypertension 04/13/2024 Other ascites 04/13/2024 Encounters Date Type Department Care Team Description 10/02/2024 Results Follow-Up [facility] - [address] [phone] Dai Steel APRN-CNP 09/29/2024 11:47 AM CDT - 09/29/2024 11:59 PM CDT Hospital Encounter 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); Refractory ascites; Esophageal varices without bleeding, unspecified esophageal varices type (HCC) 09/29/2024 Travel 09/27/2024 Telephone [facility] - [address] [address] Ana Wadsworth, RN Future Appointment 09/27/2024 [facility] [address] [address] Ana Wadsworth, RN Future Appointment 09/27/2024 Travel 09/23/2024 12:16 AM CDT - 09/23/2024 6:31 AM CDT Emergency [facility] [address] [place] [address] Dima Leiva MD SOB (shortness of breath); Other ascites Discharge Disposition: Home or Self Care 09/22/2024 [facility] [address] [address] Dai Steel, SOFTBALL CORE MOLDER-MANIFOLD OPERATOR LABS ONLY 09/21/2024 [facility] Physician [address] [address] Dai Steel, SOFTBALL CORE MOLDER-MANIFOLD OPERATOR Shortness of Breath from Last 3 Months Social History Tobacco [...] st Contact Info) Description 03/26/2025 1:15 PM ELECTRONIC WARFARE SPECIALIST Appointment [facility] [address] [place] [phone] Dai Steel, SOFTBALL CORE MOLDER-MANIFOLD OPERATOR [address] DIV [place] [address] 03/26/2025 2:30 PM ELECTRONIC WARFARE SPECIALIST Office Visit [facility] - GI [address] [place] [address] Dai Steel, SOFTBALL CORE MOLDER-MANIFOLD OPERATOR [address] [facility] [address] DIV [place] [address] Health Maintenance Due Date Last Done Comments [...] 01/29/2022, 10/06/2021 DEPRESSION SCREENING 05/03/2024 INFLUENZA VACCINE (#1) 2025 02/19/2023 SCREENING FOR DIABETES 09/30/2027 , [...] Patient-Stated? Author Medication Management General On track( 10:19 AM CDT) No Sheron Coughlin, RN Note: Expected end date: Ongoing Interventions: Take all medications as prescribed Let your doctor know right away about any changes in your medications Make sure to request a refill of your medication at least one week prior to your last dose Make and keep follow-up appointments General On track( 10:19 AM CDT) No Ashley Acosta, pilot control operator helper Procedure Name Priority Date/Time Associated Diagnosis Comments [...] 1HR STAT 09/22/2024 8:41 PM CDT PT-INR [facility] STAT 09/22/2024 8:41 PM CDT COMPREHENSIVE METABOLIC PANEL STAT 09/22/2024 8:41 PM CDT CBC W AUTO DIFFERENTIAL STAT 09/22/2024 8:41 PM CDT XR CHEST 2VW STAT 09/22/2024 8:30 PM CDT SOB (shortness of breath) EKG 12-LEAD STAT 09/22/2024 8:28 PM CDT SOB (shortness of breath) HEPATITIS C AB SCREEN RFLX NAAT QUANT Routine 05/28/2022 3:40 PM ELECTRONIC WARFARE SPECIALIST 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 from Last 3 Months or Most Recently Relevant to Health Maintenance Results * (ABNORMAL) PT-INR [facility] (09/29/2024 1:20 PM CDT) Only the most recent of2 resultswithin the time period is included. PT 16.0(H) 12.1 - 14.8 Seconds 09/29/2024 2:50 PM CDT [facility] INR 1.3 See Comment 09/29/2024 2:50 PM CDT [facility] Comment:The suggested therap eutic range for standard coumadin (warfarin) therapy is an INR of 2.0-3.0. For high-risk patients (Mechanical Mitral Valve Prosthesis, etc.), the suggested prophylactic therapeutic range is an INR of 2.5-3.5. Blood BLOOD SPECIMEN / Unknown Lab Venipuncture / Unknown 09/29/2024 1:20 PM CDT 09/29/2024 2:03 PM CDT Dai Steel APRN-MANIFOLD OPERATOR LAB - COAGULATION O RDERABLES Final Result Performing Organization Address City/[facility]/ZIP Co de Phone Number [address] [address], [place] [phone] * ALPHA FETOPROTEIN BLOOD TUMOR MARKER (09/29/2024 1:20 PM CDT) Pathologist [facility] Alpha-Fetoprote in Tumor Marker 3.5 <=8.3 ng/mL 09/29/2024 3:11 PM CDT [facility] Comment: AFP values will vary depending on testing procedure used. Results are not comparable across different methods. AFP values obtained by [facility] using an Jerome Alinity Immunoassay. Blood BLOOD SPECIMEN / Unknown Lab Venipuncture / Unknown 09/29/2024 1:20 PM CDT 09/29/2024 2:37 PM CDT [facility] - CHEMISTRY ORD ERABLES Final Result [address] [address], [place] [phone] * (ABNORMAL) CBC WITH DIFFERENTIAL (09/29/2024 1:20 PM CDT) Only the most recent of2 resultswithin the time period is included. WBC 2.9(L) 4.0 - 10.7 x10E9/L 09/29/2024 2:22 PM [facility] RBC Count 4.97 4.30 - 5.80 x10E12/L 09/29/2024 2:22 PM [facility] Hemoglobin 11.4(L) 13.3 - 17.5 g/dL 09/29/2024 2:22 PM [facility] Hematocrit 35.9(L) 38.7 - 51.1 % 09/29/2024 2:22 PM [facility] MCV 72.2(L) 80.0 - 98.0 fL 09/29/2024 2:22 PM [facility] MCH 22.9(L) 26.7 - 33.6 pg 09/29/2024 2:22 PM [facility] MCHC 31.8 31.7 - 36.3 g/dL 09/29/2024 2:22 PM [facility] RDW-CV 17.4(H) 11.3 - 14.8 % 09/29/2024 2:22 PM [facility] Platelet Count 83(L) 150 - 420 x10E9/L 09/29/2024 2:22 PM [facility] Neutrophil % 72.5 41.0 - 74.0 % 09/29/2024 2:22 PM [facility] Lymphocyte % 15.0(L) 17.0 - 47.0 % 09/29/2024 2:22 PM [facility] Monocyte % 9.8 3.0 - 11.0 % 09/29/2024 2:22 PM [facility] Eosinophil % 1.4 0.0 - 7.0 % 09/29/2024 2:22 PM [facility] Basophil % 1.0 0.0 - 1.6 % 09/29/2024 2:22 PM [facility] Immature Granulocytes % 0.3 0.0 - 1.0 % 09/29/2024 2:22 PM [facility] Neutrophil Absolute 2.07 1.60 - 7.50 x10E9/L 09/29/2024 2:22 PM T [facility] Lymphocyte Absolute 0.43(L) 1.00 - 4.40 x10E9/L 09/29/2024 2:22 PM [facility] Monocyte Absolute 0.28 0.15 - 1.00 x10E9/L 09/29/2024 2:22 PM T [facility] Eosinophil Absolute 0.04 0.00 - 0.60 x10E9/L 09/29/2024 2:22 PM [facility] Basophil Absolute 0.03 0.00 - 0.13 x10E9/L 09/29/2024 2:22 PM [facility] Blood BLOOD SPECIMEN / Unknown Lab Venipuncture / Unknown 09/29/2024 1:20 PM CDT 09/29/2024 2:08 PM CDT us Dai Steel SOFTBALL CORE MOLDER-MANIFOLD OPERATOR LAB - HEMATOLOGY OR DERABLES Final Result [facility] [address] [place] [address], [facility] [phone] * (ABNORMAL) COMPREHENSIVE METABOLIC PANEL (09/29/2024 1:20 PM CDT) Only the most recent of2 resultswithin the time period is included. BUN 14 7 - 26 mg/dL 09/29/2024 3:10 PM [facility] Creatinine 0.64(L) 0.71 - 1.16 mg/dL 09/29/2024 3:10 PM [facility] Sodium 130(L) 136 - 145 mmol/L 09/29/2024 3:10 PM [facility] Potassium 4.5 3.5 - 4.5 mmol/L 09/29/2024 3:10 PM [facility] Chloride 99 98 - 107 mmol/L 09/29/2024 3:10 PM [facility] CO2 23 22 - 29 mmol/L 09/29/2024 3:10 PM [facility] Glucose 228(H) 70 - 99 mg/dL 09/29/2024 3:10 PM [facility] Calcium 9.2 8.4 - 10.2 mg/dL 09/29/2024 3:10 PM [facility] Protein Total 7.1 6.0 - 8.3 g/dL 09/29/2024 3:10 PM [facility] Albumin 3.8 3.4 - 5.0 g/dL 09/29/2024 3:10 PM [facility] Bilirubin Total 0.9 0.2 - 1.2 mg/dL 09/29/2024 3:10 PM [facility] Alkaline Phosphatase 95 40 - 150 U/L 09/29/2024 3:10 PM [facility] ALT 19 5 - 55 U/L 09/29/2024 3:10 PM [facility] AST 22 5 - 34 U/L 09/29/2024 3:10 PM [facility] Anion Gap 8 6 - 16 09/29/2024 3:10 PM [facility] BUN/Creatinine Ratio 22 7 - 23 09/29/2024 3:10 PM [facility] Osmolality Calculated 278 275 - 295 mOsm/kg 09/29/2024 3:10 PM [facility] Albumin/Globulin Ratio 1.2 1.1 - 2.3 09/29/2024 3:10 PM [facility] eGFR by CKD-EPI >90 >=90 mL/min/1.7 3 m2 09/29/2024 3:10 PM [facility] Blood BLOOD SPECIMEN / Unknown Lab Venipuncture / Unknown 09/29/2024 1:20 PM CDT 09/29/2024 2:34 PM CDT us Dai Steel SOFTBALL CORE MOLDER-MANIFOLD OPERATOR LAB - CHEMISTRY ORD ERABLES Final Result [address] [address], [facility] [phone] * US Abdomen Limited (09/29/2024 12:29 PM [...] Hui MD (resident). > Dictated by Lakshmi Hiu MD (Tar And Ammonia Pump Operator) 09/29/2024 1:52 PM IZhou have personally reviewed and interpreted this examination/study. 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 > Dictated by Lakshmi Hui MD (Tar And Ammonia Pump Operator) 09/29/2024 1:52 PM IZhou have personally reviewed and interpreted this examination/study. > Interpreting Provider: Zhou Lambert on 09/29/2024 3:48 PM us Dai Steel SOFTBALL CORE MOLDER-MANIFOLD OPERATOR US ORDERABLES Fin al Result * CARDIAC [...] Patient Risks discussed: Bleeding, infection and pain Abrams protocol: Patient identity confirmed: Verbally with patient [...] CDT) Fluid Source Peritoneal 09/23/2024 5:40 AM [facility] Body Fluid Total Cell Count 100 x10E6/L 09/23/2024 5:40 AM T [facility] Neutrophils Fluid Percent 6 % 09/23/2024 5:40 AM [facility] Lymphocytes Fluid Percent 32 % 09/23/2024 5:40 AM [facility] Macrophages Fluid Percent 60 % 09/23/2024 5:40 AM [facility] Mesothelial Cells Fluid Percent 2 % 09/23/2024 5:40 AM [facility] Fluid PERITONEAL FLUID / Unknown Collection / Unknown 09/23/2024 4:34 AM CDT 09/23/2024 4:37 AM CD Narrative [facility] - 09/23/2024 5:40 AM CDT No reference ranges established for body fluid differential cell counts. The test results must be integrated into the clinical context for interpretation. us Dima Leiva MD LAB - BODY FLUID ORDERABLES F inal Result [facility] [address] [place] [address], [facility] [phone] * CULTURE FLUID+GRAM STAIN (09/23/2024 4:34 AM CDT) Culture No growth ELIJAH 09/26/2024 8:48 AM CDT [facility] Gram Stain No polymorphonuclear cells 09/26/2024 8:48 AM CDT [facility] Gram Stain No organisms seen 025 8:48 AM CDT [facility] Other PERITONEAL FLUID / Unknown Collection / Unknown 09/23/2024 4:34 AM CDT 09/23/2024 4:37 AM CDT us Dima Leiva MD LAB - MICROBIOLOGY ORDERABLES Final Result Performing Organization Address [facility]/ZIP Co de Phone Number [facility] [address] [place] [address], [facility] [phone] * CELL COUNT W DIFFERENTIAL FLUID (09/23/2024 4:34 AM CDT) Fluid Source Peritoneal 09/23/2024 5:40 AM CDT [facility] Fluid Appearance SLIGHTLY HAZY 09/23/2024 5:40 AM CDT [facility] Fluid Color YELLOW 09/23/2024 5:40 AM CDT [facility] Total Nucleated Cells Fluid 163 Reference Range Not Established x10E6/L 09/23/2024 5:40 AM CDT [facility] RBC Count Fluid 2,000 Reference Range Not Established x10E6/L 09/23/2024 5:40 AM CDT [facility] Fluid PERITONEAL FLUID / Unknown Collection / Unknown 09/23/2024 4:34 AM CDT 09/23/2024 4:37 AM CDT Narrative [facility] - 09/23/2024 5:40 AM CDT No reference ranges established for body fluid cell counts. Any reference ranges provided are derived from published literature. The test results must be integrated into the clinical context for interpretation. us Dima Leiva MD LAB - BODY FLUID ORDERABLES F inal Result Performing Organization Address City/[facility]/ZIP Co de Phone Number [address] [address], [place] [phone] * TROPONIN-I HIGH SENSITIVE REFLEX 1HOUR (09/22/2024 10:46 PM CDT) Troponin I High Sensitive <3 <=35 ng/L 09/22/2024 11:27 PM CDT [facility] Delta Troponin I HS 09/22/2024 11:27 PM CDT [facility] Comment:Delta value intentio andrea not calculated. Baseline to 1 hour specimen collection interval exceeded. Blood BLOOD SPECIMEN / Unknown Venipuncture / Unknown 09/22/2024 10:46 PM CDT 09/22/2024 10:52 PM CDT [facility] LAB - CHEMISTRY ORDER ASHANTI Final Result [address] [address], [place] [phone] * TROPONIN-I HIGH SENSITIVE BASELINE + 1HR (09/22/2024 8:41 PM CDT) [facility] Troponin I High Sensitive <3 <=35 ng/L 09/22/2024 9:23 PM CDT [facility] Blood BLOOD SPECIMEN / Unknown Venipuncture / Unknown 09/22/2024 8:41 PM CDT 09/22/2024 8:46 PM CDT Gayla Brittney BERRY[facility] LAB - CHEMISTRY ORDER ASHANTI Final Result [address] [address], [place] [phone] * MAGNESIUM BLOOD (09/22/2024 8:41 PM CDT) Pathologist [facility] Magnesium 1.6 1.6 - 2.6 mg/dL 09/22/2024 9:19 PM CDT [facility] Blood BLOOD SPECIMEN / Unknown Venipuncture / Unknown 09/22/2024 8:41 PM CDT 09/22/2024 8:46 PM CDT Gayla Aldrich PA-C LAB - CHEMISTRY ORDER ASHANTI Final Result [facility] [address] [place] [address], [facility] [phone] * XR CHEST 2VW (09/22/2024 8:30 PM CDT) Anatomical Region Laterality Modality Chest Digital Radiogra phy 09/23/2024 12:3 4 AM CDT Narrative 09/23/2024 6:12 AM CDT PROCEDURE: XR CHEST 2VW, DATE/TIME OF EXAM: 09/22/2024 8:30 PM, LOCATION [facility] INDICATION: R06.02: SOB (shortness of breath) ADDITIONAL CLINICAL INFORMATION: Ordering Provider Reason For Exam: r/o effusion COMPARISON: None. FINDINGS/IMPRESSION: There is a moderate left-sided pleural effusion with associated atelectasis/airspace disease. The right lung is clear. No pneumothorax. The cardiomediastinal silhouette is partially obscured. The visible bony thorax is intact. Report dictated by Dima Stoner MD (group president). Ranjit Castrejon MD have personally reviewed and interpreted this examination/study. > Interpreting Provider: Ranjit Padilla MD on 09/23/2024 6:12 AM Procedure Note Ranjit Padilla MD - 09/23/2024 PROCEDURE: XR CHEST 2VW, DATE/TIME OF EXAM: 09/22/2024 8:30 PM, LOCATION [facility] INDICATION: R06.02: SOB (shortness of breath) ADDITIONAL CLINICAL INFORMATION: Ordering Provider Reason For Exam: r/o effusion COMPARISON: None. FINDINGS/IMPRESSION: There is a moderate left-sided pleural effusion with associated atelectasis/airspace disease. The right lung is clear. No pneumothorax.The cardiomediastinal silhouette is partially obscured. The visible bonythorax is intact. Report dictated by Dima Stoner MD (group president). I, Ranjit Padilla MD have personally reviewed and interpreted this examination/study. > Interpreting Provider: Ranjit Padilla MD on 09/23/2024 6:12 AM Result [facility] Gayla Aldrich PA-C DIAGNOSTIC IMAGING OR DERABLES Final Result * EKG 12-LEAD (09/22/2024 8:28 PM CDT) Pathologist [facility] Ventricular Rate 81 BPM [facility] Atrial Rate 81 BPM [facility] P-R Interval 166 ms [facility] QRS Duration ms 80 ms [facility] Q-T Interval ms 372 ms [facility] QTC Calculation (Bezet) 432 ms [facility] Calculated P Igo 9 degrees SL MUSE Calculated R Igo -6 degrees SL MUSE Calculated T Igo 11 degrees [facility] Interpretation EKG NORMAL SINUS RHYTHM ABNORMAL ECG NO PREVIOUS ECGS AVAILABLE Confirmed by MIKE PRAKASH MD ([id number]) on 09/24/2024 11:43:35 PM [facility] 09/22/2024 8:28 PM CDT 09/24/2024 11:43 PM CDT [facility] ECG ORDERABLES Edite d Result - Final [facility] * HEPATITIS C AB SCREEN RFLX NAAT QUANT (05/28/2022 3:40 PM ELECTRONIC WARFARE SPECIALIST) Pathologist [facility] Hepatitis C Antibody Non-react sawyer Non-reac tive 05/28/2022 5:37 PM ELECTRONIC WARFARE SPECIALIST [facility] Comment:Hepatitis C Antibody screen indicates no serologic evidence of past or current infection with Hepatitis C Virus. Patients with unexplained liver disease who are immunocompromised or suspected of having acute Hepatitis C infection may benefit from Nucleic Acid Test (ISAMAR) for Hepatitis C Viral RNA to confirm Hepatitis C status. Blood BLOOD SPECIMEN / Unknown Lab Venipuncture / Unknown 05/28/2022 3:40 PM ELECTRONIC WARFARE SPECIALIST 05/28/2022 4:21 PM ELECTRONIC WARFARE SPECIALIST Result [facility] Ranjitpaloma Sparks MD LAB - CHEMISTR Y ORDERABLES Final Result [facility] [address] [place] [address], [facility] [phone] from Last 3 Months or Most Recently Relevant to Health Maintenance Insurance [employer] Care Teams Tobacco Sampler Relationship Specialty Start Date End Date Jared Mills DO [address] [place] [id number] PCP - General 03/04/22
--- OUTSIDE RECORDS SUMMARY | 2024-12-14 10:17 | XMS_ITS | Clinical Summary ---
Author Organization [facility] Barrera acosta [facility] Address [address] [place] [address] Care Team Providers Care Scientific Research Associate Name Role Phone Jared Mills DO Primary Care Provider [phone] Allergies Active Allergy Reactions Criticality Noted Date [...] Comments Blood Pressure 155/90 04/21/2022 2:27 PM MAC ARTIST Pulse 74 04/21/2022 2:25 PM MAC ARTIST Temperature 36.3 C (97.3 F) 04/21/2022 2:25 PM MAC ARTIST Respiratory Rate 16 04/21/2022 2:25 PM MAC ARTIST Oxygen Saturation 98% 04/21/2022 2:25 PM MAC ARTIST Inhaled Oxygen Concentration - - Weight 111.3 kg (245 lb 4.8 oz) 04/21/2022 2:25 PM MAC ARTIST Height 182.9 cm (6') 01/06/2022 2:22 PM [...] (1 of 2) 07/17/2011 INFLUENZA VACCINE (#1) 2024 RSV VACCINE (60+ or ) (1 - 1-dose 75+ series) [address] [place] [address] BLUE ACCESS CHOICE Care Teams Scientific Research Associate Relationship Specialty Start Date End Date Jared Mills DO [address] [place] [address] PCP - General Family Practice 01/06/22
[2024-12-14 10:21] LABS: Hematocrit 34.8 % (40.0-54.0); Hemoglobin 10.8 g/dL (14.0-18.0); Immature Platelet Fraction Pct 3.8 % (1.0-7.0); Mean Corpuscular HGB Conc 31.0 g/dL (32-36); Mean Corpuscular Hemoglobin 22.5 pg (27.0-31.0); Mean Corpuscular Volume 72.5 fL (78.0-102.0); Platelet Count Result 75 K/mm3 (150-420); Red Blood Count 4.80 M/mm3 (4.70-6.10); White Blood Count 2.1 K/mm3 (4.8-10.8)
[2024-12-14 10:32] LABS: INR 1.2; Prothrombin Time 12.6 Seconds (9.50-12.1)
[2024-12-14 10:39] LABS: Band Neutrophils Percent 0 % (0-6); Basophils Absolute Manual 0.00 K/mm3 (0-0.1); Basophils Percent Manual 0 % (0-1); Eosinophils Absolute Manual 0.02 K/mm3 (0.02-0.50); Eosinophils Percent Manual 1 % (1-6); Lymphocytes Absolute Manual 0.52 K/mm3 (1.1-4.5); Lymphocytes Percent Manual 25 % (18-44); Monocytes Absolute Manual 0.37 K/mm3 (0.1-0.90); Monocytes Percent Manual 18 % (3-9); Neutrophils Absolute Manual 1.17 K/mm3 (1.3-6.7); Neutrophils Percent Manual 56 % (46-73); Total Cells Counted 100
[2024-12-14 11:00] LABS: Alanine Aminotransferase 27 U/L (6-50); Albumin Level 4.0 g/dL (3.5-5.1); Alkaline Phosphatase 74 U/L (38-126); Anion Gap 6 mmol/L (4-12); Aspartate Amino Transferase 28 U/L (17-59); Bilirubin,Total 1.1 mg/dL (0.2-1.3); Blood Urea Nitrogen 16 mg/dL (9-20); CRP < 0.5 mg/dL (<1.0); Calcium 9.4 mg/dL (8.4-10.2); Carbon Dioxide 28 mmol/L (22-30); Chloride 100 mmol/L (98-107); Estimated Glomerular Filt Rate > 60; Glucose 165 mg/dL (65-110); Lipase 40 U/L (23-300); Osmolality Calculated 283 mOsm/kg (285-295); Potassium 5.0 mmol/L (3.4-5.0); Sodium 134 mmol/L (137-145); Total Protein 6.6 g/dL (6.3-8.2)
== END 2024-12-14 10:00 | disposition home or self-care (01) ==
PROVIDERS: PCP Family Medicine; Visit Provider Family Medicine
DX: R10.9 Unspecified abdominal pain (principal); K74.60 Unspecified cirrhosis of liver; R18.8 Other ascites; I82.890 Acute embolism and thrombosis of other specified veins; R16.1 Splenomegaly, not elsewhere classified
CPT/HCPCS: 36415; 74177; 80053; 83690; 85025; 85055; 85610; 86140; Q9967